=== PATIENT | male | born 1960 | race Caucasian/White ===

== ENCOUNTER 2024-01-04 12:03 | Emergency (ER) | payer OTHER, SELFPAY ==
[2024-01-04 12:20] VITALS: BP 120/93; PULSE 86; TEMP 36.7; O2SAT 95; BMI 25.0
--- NOTE | 2024-01-04 12:22 | XR_ITS ---
The [address] [address] Patient Name: SHWETA BRAXTON MRN: [id number] date: 1960 Sex: M Assigned Patient Location: ED.MAIN Current Patient Location: ER Accession/Order Number: [id number] Exam Date: 01/04/2024 12:40 Report Date: 01/04/2024 13:32 At the request of: ZION SEN Procedure: XR knee LT 3V EXAM: XR knee LT 3V HISTORY: pain COMPARISON: None. TECHNIQUE: 3 views of the left knee were obtained. FINDINGS: There is no evidence of an acute fracture or dislocation. The joint spaces are relatively intact throughout. No osteochondral injury is identified. There is no evidence of a joint effusion. Arteriovascular calcifications are noted posteriorly. Prominent soft tissue swelling anterior to the patella and the proximal tibia is noted. XR/XR knee LT 3V IMPRESSION: No acute fracture or dislocation. The joint spaces appear relatively intact. Prominent soft tissue swelling along the anterior aspect of the patella and tibia is noted. Electronically authenticated by: GRETA BRITT Date: 01/04/2024 13:32
--- NOTE | 2024-01-04 12:36 | ED.LOWEXI1 ---
HPI HPI - Extremity Injury (Lower) General Chief Complaint: Extremity Injury, Lower Stated Complaint: LOWER EXTREMITY INJURY Time Seen by Provider: 01/04/24 12:29 Mode of arrival: walk-in History of Present Illness HPI Narrative: The patient presented to the ER with a left knee pain that started yesterday after he fell after getting out of the bed at home there was no other injury the patient has been having pain when moving or putting weight on his leg Related Data Previous Rx's ?Medication ?Instructions ?Recorded diclofenac sodium 50 mg 50 mg PO Q12H PRN pain #14 tabs 01/04/24 tablet,delayed release Allergies Allergy/AdvReac Type Severity Reaction Status Date / Time No Known Drug Allergies Allergy Verified 01/04/24 12:20 Opioid HPI Opioid Management Most Recent Pain and Opioid Data: Last MAY Pain Assessment 01/04/24 12:59 Review of Systems ROS Status of ROS 10 or more systems reviewed and unremarkable except as noted in history and below PFSH PFSH Social History Little interest or pleasure in doing things: not at all Feeling down, depressed, or hopeless: not at all Exam Narrative Exam Narrative: Nurses notes and vital signs reviewed and patient is not hypoxic. Leg examination on the left side: The patient have significant edema of the left knee with full range of movement preserved there is no redness no hotness no open wounds the edema is mostly around the patella General: Well-appearing and in no apparent distress. Skin: Warm, dry, no pallor noted. No rash. Head: Normocephalic, atraumatic. Neck: Supple, non-tender. Eye: Pupils are equal, round and EOMI. No scleral icterus. Ears, Nose, Mouth, and Throat: TM are clear, no nasal mucosal hypertrophy. Oral mucosa is moist, no posterior oropharynx erythema, uvula is mid-line Cardiovascular: Regular Rate and Rhythm without murmur, gallop or rub. Respiratory: No accessory muscle use or respiratory distress. Lungs are clear to auscultation, no wheezing, rales or rhonchi Chest Wall: no tenderness Back: No midline thoracic or lumbar vertebral tenderness. No CVA tenderness GI: Abdomen is soft, non-distended. Normal bowel sounds. No masses appreciated. No tenderness to palpation. No rebound, guarding, or rigidity noted. Neurological: A&O x4. No cranial nerve dysfunction observed. No truncal ataxia. Moves all extremities. Sensation intact. Psychiatric: Cooperative and interactive. Normal mood and affect. Constitutional Vital Signs, click to edit/add: Last Vital Signs Temp 98.0 F 01/04/24 12:20 Pulse 86 01/04/24 12:20 Resp 18 01/04/24 12:20 BP 120/93 H 01/04/24 12:20 Pulse Ox 95 01/04/24 12:20 O2 Del Method Room Air 01/04/24 12:20 Course Vital Signs Vital signs: Vital Signs Temperature 98.0 F 01/04/24 12:20 Pulse Rate 86 01/04/24 12:20 Respiratory Rate 18 01/04/24 12:20 Blood Pressure 120/93 H 01/04/24 12:20 Pulse Oximetry 95 01/04/24 12:20 Oxygen Delivery Method Room Air 01/04/24 12:20 Temperature 98.0 F 01/04/24 12:20 Pulse Rate 86 01/04/24 12:20 Respiratory Rate 18 01/04/24 12:20 Blood Pressure 120/93 H 01/04/24 12:20 Pulse Oximetry 95 01/04/24 12:20 Oxygen Delivery Method Room Air 01/04/24 12:20 MDM - Extremity Injury (Lower) MDM Narrative Medical decision making narrative: X-ray of the left knee showed no acute pathology Right now the patient was provided with knee immobilizer in addition to crutches referred to orthopedic as outpatient for possible ligament injury or contusion NSAIDs for pain The patient is to follow up with primary care physician in next 2-3 days or to return to the emergency department should any of the signs or symptoms worsen or new symptoms develop. The patient agrees with the following Diagnosis and Treatment plan and the patient will be discharged home. Discharge Plan Discharge Chief Complaint: Extremity Injury, Lower Clinical Impression: Injury of ligament of knee Patient Disposition: Home, Self-Care Time of Disposition Decision: 13:48 Condition: Good Prescriptions / Home Meds: New diclofenac sodium 50 mg tablet,delayed release (DR/EC) 50 mg PO Q12H PRN (Reason: pain) Qty: 14 0RF Print Language: Indonesian Instructions: Crutch Instructions (ED), Swollen Knee Joint (ED) Referrals: Physician,Non-Staff, [Primary Care Provider] - 1 week Scott Dick MD [Physician] - 1 week Discharge Date/Time: 01/04/24 14:26
[2024-01-04] MEDS: KETOROLAC TROMETHAMINE 30 MG/ML VIAL IM (12:59)
== END 2024-01-04 14:26 | disposition home or self-care (01) ==
PROVIDERS: Emergency Provider Emergency Medicine
DX: S89.82XA Other specified injuries of left lower leg, initial encounter (principal); W06.XXXA Fall from bed, initial encounter
CPT/HCPCS: 73562; 96372; 99284; J1885

== ENCOUNTER 2024-03-08 06:39 | Outpatient (OUT) | payer OTHER, SELFPAY ==
--- NOTE | 2024-03-08 | NM_ITS ---
Patient Name: SHWETA BRAXTON MR#: [id number] : 1960 Exam Date: 03/08/2024 Ordering Doctor: DR. ALEXANDREA BARGER M.D. RADIOLOGY REPORT PROCEDURE: NM SHAY PERF SPECT REST STR COMPARISON: None. INDICATIONS: PRECORDIAL PAIN, PRE PROCEDURE CARDIOVASCULAR EXAM TECHNIQUE: Exam Description: Stress/Rest one day protocol gated SPECT Rest Imagin.5 mCi Tc-99m Cardiolite IV on 03-08-2024 Stress Imaging 29.2 mCi Tc-99m Cardiolite IV on 03-08-2024 Exercise Protocol: Sushant Heart Rate (bpm): Rest: 58 Max: 139 PMHR: 89 Blood Pressure: Rest: 120/72 Max: 208/96 Exercise Time: Minutes: 3 Seconds: 59 Stage Reached: Stage: 2 Mets 6.9 Symptoms: shortness of breath Rest and peak stress ECG findings were normal and the exercise portion of the study was normal per attending physician Dr. Barger . For more details please see separate cardiac stress test report. FINDINGS: QUALITY OF STUDY: Excellent. PERFUSION DEFECT: LOCATION: Basal inferior. Mid-inferior. Apical inferior. SIZE: Medium (3-4 segments). SEVERITY: Moderate. TYPE: Persistent. WALL MOTION: Normal. LV SIZE: Enlarged; EDV 138 mL. TID / TCD: None; 0.8 LVEF: Normal. Calculated EF 62%. SUMMARY: Myocardial perfusion imaging study has ABNORMAL findings. CONCLUSION: 1. No acute or reversible ischemia. 2. Decreased radiotracer uptake within the inferior wall which is stable between rest and stress imaging; fixed ischemia versus diaphragm attenuation artifact. 3. Left ventriculomegaly. 4. Normal left ventricle wall motion and ejection fraction. Dictated by: Scott Youssef M.D. on 03/09/2024 at 16:27 Approved by: Scott Youssef M.D. on 03/09/2024 at 16:31
--- NOTE | 2024-03-08 | PCN_ITS ---
CARDIAC STRESS TEST Requesting Physician: Procedure Date: 03/08/2024 TREADMILL NUCLEAR STRESS TEST INDICATION FOR THE PROCEDURE: Precordial pain and pre-op evaluation. The procedure was discussed with the patient in details, including risks and benefits, and he was agreeable to proceed. Patient?s resting EKG showed mild sinus bradycardia, heart rate 59 beats per minute, otherwise normal EKG. Resting blood pressure 120/72 mm/Hg. The patient was exercised according to standard Sushant protocol, and he was able to finish 3 minutes and 59 seconds, consistent with 6.9 METS, achieving max heart rate of 139 beats per minute, which represents 89% of age predicted maximum heart rate, and max blood pressure of 208/96 mm/Hg. Patient was monitored for 8 minutes into recovery phase, with heart rate back to 71 beats per minute and blood pressure to 150/82 mm/Hg. Patient did not experience any chest, neck, jaw or arm discomfort throughout the test. He had dyspnea at peak exercise. EKG during exercise, at peak exercise, and during recovery phase does not show any significant T or ST changes. Rare PVCs were noted during recovery phase and they were isolated. CONCLUSION: 1. Maximal stress test achieving 89% of age predicted maximum heart rate. 2. Appropriate heart rate response to exercise. 3. Hypertensive response to exercise. 4. Reduced exercise tolerance. 5. This EKG stress test is negative for exercise induced ischemic symptoms, EKG changes or significant arrhythmias. 6. The nuclear images result will be reported separately by Radiology. DIAMOND
[2024-03-08 06:54] LABS: Basophils Absolute Auto 0.1 10^3/uL (0.0-0.1); Basophils Percent Auto 0.7 % (0.2-2.0); Eosinophils Absolute Auto 0.4 10^3/uL (0.0-0.7); Eosinophils Percent Auto 4.6 % (0.9-7.0); Hemoglobin 14.8 g/dL (14.0-18.0); Immature Granulocytes Abs Auto 0.01 10^3/uL (0.00-0.03); Immature Granulocytes Pct Auto 0.1 % (0.0-0.5); Lymphocytes Absolute Auto 4.6 10^3/uL (1.2-3.8); Lymphocytes Percent Auto 48.5 % (20.5-60.0); Mean Corpuscular HGB Conc 32.9 g/dL (29.9-35.2); Mean Corpuscular Volume 94.3 fL (80.0-94.0); Monocytes Absolute Auto 0.6 10^3/uL (0.3-0.8); Monocytes Percent Auto 5.8 % (1.7-12.0); Neutrophils Absolute Auto 3.8 10^3/uL (1.4-6.5); Neutrophils Percent Auto 40.3 % (43.0-75.0); Platelet Count 277 10^3/uL (150-450); Red Blood Count 4.77 10^6/uL (4.70-6.10); Red Cell Distribution Width 12.9 % (11.0-15.0); White Blood Count 9.4 10^3/uL (4.0-11.0)
--- NOTE | 2024-03-08 07:30 | CA_ITS ---
Patient Name: SHWETA BRAXTON MR#: [id number] : 1960 Exam Date: 03/08/2024 Ordering Doctor: DR. Sivakumar Thomas M.D. ECHOCARDIOGRAM REPORT PROCEDURE: CA ECHO DOPPLER COMPLETE INDICATIONS: Pre-op, dyspnea on exertion, smoker COMPARISON: None. DESCRIPTION: COMPLETE ECHOCARDIOGRAM Real-time transthoracic echocardiography with 2D, M-mode, spectral and color flow Doppler performed. QUALITY: Technical quality was good. LEFT VENTRICLE: Normal chamber size. Mild concentric left ventricular hypertrophy. LV EF: Normal left ventricular ejection fraction, 55 to 60% without wall motion abnormalities. DIASTOLIC: Normal diastolic function. ATRIAL SEPTUM: Visually appears intact. LEFT ATRIUM: Mild dilatation. RIGHT ATRIUM: Normal chamber size. RIGHT VENTRICLE: Normal chamber size. Normal right ventricular systolic function. TRICUSPID VALVE: Normal mobility and thickness. No stenosis with no regurgitation. MITRAL VALVE: Mildly thickened with normal mobility. No evidence of mitral valve stenosis. Mild mitral annular calcification. Trivial mitral regurgitation. AORTIC VALVE: Normal trileaflet appearance. No visible sclerosis. Normal leaflet mobility. No evidence of aortic valve stenosis. No aortic regurgitation. AORTIC ROOT: Normal diameter and appearance. PULMONIC VALVE: Normal thickness and mobility. No stenosis. No regurgitation. PERICARDIUM: No evidence of pericardial effusion. IVC: Collapes with inspirations. IVC is normal in size. PLEURA: CONCLUSION: Mild concentric ventricular hypertrophy Normal left ventricle systolic function without wall motion abnormalities, ejection fraction 55 to 60% Normal left ventricle diastolic function Mildly dilated left atrium No significant valvular abnormalities Normal right ventricle size and systolic function Adult Echocardiography Procedure Report Left Ventricle LVEDD (3.7 - 5.6 cm): 5.10 cm LVESD (2.2 - 4.0 cm): 3.55 cm LVIVS thickness (0.6 - 1.2 cm): 1.30 cm LVPW thickness (0.5 - 1.0 cm): 1.23 cm e': 0.11 m/s E - e': 6.36 LVOT Max Gradient: 1.28 mm[Hg] LVOT Area (cm2): 0.57 m/s Peak Velocity (LVOT): 0.57 m/s Mean Velocity (LVOT): 0.42 m/s LVOT Diameter 2.79 cm Left Ventricular Ejection Fraction: Left Atrium LA Volume Index (2D A2C): 36.81 ml/m2 Left Atrium Systolic Dimension: 3.85 cm Mitral Valve MV E to A Ratio: 1.20 MV Max Gradient: MV Mean Gradient: Mitral Valve A-Wave Peak Velocity: 0.58 m/s Mitral Valve E-Wave Peak Velocity: 0.70 m/s Cardiovascular Orifice Area: Right Ventricle RV Internal Diastolic Dimension: Aorta AO Root Diam: 4.07 cm Ascending Ao Diam: Aortic Valve AoV Area (Peak Jimi): 3.72 cm2, 3.72 cm2 AoV Area (VTI): 4.01 cm2, 4.01 cm2 Deceleration Placer: Pressure Half-Time: Peak Velocity(Antegrade Flow): 0.93 m/s Peak Gradient(Antegrade Flow): 3.45 mm[Hg] Mean Velocity(Antegrade Flow): 0.67 m/s Mean Gradient(Antegrade Flow): 1.94 mm[Hg] Velocity Time Integral: 17.99 cm Tricuspid Valve Peak Velocity (Regurgitant Flow): Peak Velocity: Pulmonic Valve Mean Gradient: Mean Velocity: Peak Velocity: 0.92 m/s Peak Gradient: 3.37 mm[Hg] Right Atrium Right Atrium Systolic Pressure: 37.90 ml, 37.90 ml Dictated by: Sivakumar Thomas MD on 03/08/2024 at 17:58 Approved by: Sivakumar Thomas MD on 03/08/2024 at 18:04
[2024-03-08 08:01] LABS: Alanine Aminotransferase 31 U/L (16-63); Anion Gap 8.2; Aspartate Amino Transferase 22 U/L (15-37); BUN Creatinine Ratio 15.3; Calcium 8.6 mg/dL (8.5-10.1); Carbon Dioxide 31.9 mmol/L (21.0-32.0); Chloride 104 mmol/L (98-107); Chol HDL Ratio 3.9; Cholesterol 216 mg/dL (<=200); Estimated GFR (African America >60 (>=60 mL/min/1.73m^2); Estimated GFR (Non-African Ame >60 (>=60 mL/min/1.73m^2); Glucose 85 mg/dL (74-106); HDL Cholesterol 56 mg/dL (40-60); Potassium 4.1 mmol/L (3.5-5.1); Sodium 140 mmol/L (136-145); Thyroid Stimulating Hormone 1.544 uIU/mL (0.358-3.740); Triglycerides 83 mg/dL (<=150); VLDL CHOLESTEROL 16.6 mg/dL
--- NOTE | 2024-03-08 10:01 | PC.NURSE ---
Nursing Note Cardiac Stress Test Reviewed: Medication, allergies and patient history reviewed. Stress Test: [ x] Patient tolerated stress test well. [ ] Patient unable to tolerate walking on treadmill. Switched to Lexiscan stress test. [ x] No chest pain noted per patient [ ] Chest pain that resolved prior to leaving stress lab. [ ] No dyspnea noted. [x ] Dyspnea that resolved prior to leaving stress lab. [ x] Patient left stress lab asymptomatic and hemodynamically stable. [ ] Patient taken to the Emergency Room due to non-resolving symptoms following stress test. [ x] Patient achieved target heart rate. [ ] Patient unable to achieve target heart rate. [ ] Aminophylline administered as reversal agent to Lexiscan (Regadenoson). [ ] Nitro administered. Nursing Comments:Pt had Cardiolite stress test tolerated well. Pt had dyspnea that resolved within 5 min of rest. Pt states he always has SOB with any activity due to smoking for 50 years.
== END 2024-03-08 06:40 | disposition home or self-care (01) ==
LOC: LAB 06:40
PROVIDERS: Visit Provider Internal Medicine Cardiovascular Disease
DX: Z01.818 Encounter for other preprocedural examination (principal); R07.2 Precordial pain; R06.09 Other forms of dyspnea; E78.5 Hyperlipidemia, unspecified; I10 Essential (primary) hypertension
CPT/HCPCS: 36415; 78452; 80048; 80061; 84443; 84450; 84460; 85025; 93017; 93306; A9500

== ENCOUNTER 2024-04-16 13:24 | Outpatient (OUT) | payer OTHER, SELFPAY ==
--- OUTSIDE RECORDS SUMMARY | 2024-04-16 13:43 | XMS_ITS | CCD ---
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 instructionPATIENT / FAMILY RESPONSE: Verbalizes understanding of: INFECTIONMANAGEMENT-Signs and symptoms of an infection and importance ofcontacting the physicianPAIN MANAGEMENT-Effective strategies to manage pain in addition to painmedicationPOST-OPERATI VE INSTRUCTIONS-Correct actions to take to reducepostoperative complicationsPRE-OPERATIVE INSTRUCTIONS-Correct action to take to follow pre-operativeinstructionsF OLLOW-UP PLAN: Patient instructed to call with any further issuesSUPPLEMENTAL MATERIAL: Your Surgical GuideREFERRAL (RECOMMENDATION): NoneElectronically Signed By: Sunni Salmeron RN In Department: GENERALSURGERY Normal [facility] CNOVon 2017 CNOV Office Visit (SPNMMN) SHWETA BRAXTON JR ([id number]) 1960 MDate Time Provider Department09/11/17 9:40 AM AURA STATON SPNYMN During your visit today, we recorded the following information about you: Pulse Respiration Blood pressure Weight 70/minute 16/minute 137/83 104.3 kg Height 1.892 Kenton Staton MD 2017 11:[address] S[address]Spine Care Path Radicular Leg Pain - Chronic (> 12 weeks) Initial ExamSUBJECTIVEHISTORY OF PRESENT ILLNESS:Shweta Braxton JR is a 57 year old male who presents with a chief complaint ofleg pain and is seen in consultation requested by Dr. Thomas Matthews for anopinion. My final recommendations will be communicated back to the requestingphysician by way of shared medical record or letter via US mail.Other Issues Addressed at the Visit Today: None.Precipitating Event: NoneLow back and bilateral LE pain-buttock, posterior thigh to the ankle to theplantar of the foot for the last 2 years. +numbness of the feet and some inthe legs but the foot numbness is most bothersome. Bilateral LE swelling alsonotes around this time. Saw a vascular physician (records not available) andwas given compression stockings and suggested a work-up that per patient wasnot completed due to inability to afford.Now has insurance/coverage via [facility].Denies trauma.PAIN EVALUATION 2017 Pain Score: 10 Pain Location: Back Description: Aching;Radiating;Numbness; Other: See comment piercing Duration Amount of Time: 2 Duration Units: Years Frequency: Continuous Intervention: Medication;Cold;Relaxation ;HeatPain Radiation: please see aboveAggravating Factors: sitting>standing>walking. Not limited in walking distance.Alleviating Factors: Lying supinePain Ratio: Pain in the back and leg(s) is equalPrior Therapy: tried OTC-tylenol, advil. Denies PT or injections.Litigation: NoWorkers' Compensation: NoPED RED FLAGS YELLOW AND BLUE FLAGSNo No-Significant Injury to SpineNo-Use of Steroids for Prolonged DurationNo-Loss of Bowel/Bladder Control, Genital/Anal NumbnessNo-Recent Use of Intravenous (IV) DrugsNo-Difficulty Keeping Balance when WalkingYES-Progressive Weakness in Arms/LegsNo-History of Any Type of CancerNo-Unable to Find Position of ComfortNo-Pain at Night that Disturbs SleepNo-Recent Elevated Temp with Unknown CauseNo-Diagnosed with OsteoporosisNo-Unintention al Weight Loss or Gain No-Neg Attitude; Back Pain is DisablingNo-Avoiding Activity (for Fear of Pain)YES-Depression or Anxiety DisordersNo-Social ProblemsNo-Substance Use DisorderNo-Job DissatisfactionNo-Financia l Disincentives*PED (Patient Entered Data) osteoporosis flag will display for females 55 yearsor older and males 75 years or older.ACTIVE PROBLEM LISTObesity, Class I, Bmi 30-34.9Chronic Obstructive Pulmonary Disease (Hcc)Chronic Left-Sided Low Back Pain With SciaticaUmbilical Hernia Without Obstruction Or GangrenePreoperative ExaminationUmbilical Hernia Without Obstruction and Without GangrenePAST MEDICAL HISTORYDiagnosis Date- Back pain- COPD (chronic obstructive pulmonary disease) (HCC)- Current smoker- Hip pain- Umbilical herniaPAST SURGICAL HISTORYProcedure Laterality Date- HEMORRHOID SURGERY HXSocial History Marital status: Single Spouse name: Years of education: Number of children:Social History Main Topics Smoking status: Current Some Day Smoker Packs/day: 1.00 Years: 40.00 Smokeless tobacco: Current User Comment: used to smoke more Alcohol use: Yes 20.0 oz/week Shots of liquor: 20 per week Comment: 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 but there is noteof COPD in chart that patient deniesGI: Denies GI ulcers, inflammatory disease, or liver disease.: Denies change in frequency or urgency, kidney disease, and burning withurination.MUSCULOSKELE ARIANNA: Negative for joint pain or swelling, back pain or muscle pain.SKIN: Denies rash or itching.PSYCHOLOGICAL: Denies uncontrolled depression or anxiety.NEURO: Denies CVA, seizures, headaches.ENDOCRINE: Denies diabetes, thyroid disease.HEMATOLOGY/LYMPHOL OGY: Denies cancer, bleeding or clotting disorders,anemia,and DVT's.ALLERGIC/IMMUNOLOGIC AL: Denies risks for infection, or recent MRSA infections.OBJECTIVE:PHYSI NYDIA EXAMBP 137/83 Pulse 70 Resp 16 Ht 189.2 cm (6' 2.5 ) Wt 104.3 kg (230lb) BMI 29.14 kg/m?General: Pleasant individual in NADMental Status: Oriented to person place and time. Displays appropriate mood andaffect.GAIT: Gait is normal.Gross Motor: Toe walking, heel walking are normal.Strength Testing: Bilateral upper and lower extremity strength is normal andsymmetric. No atrophy or tone abnormalities are noted.Sensation: No loss of sensation is noted.Neuro: Bilateral upper and lower extremity coordination and muscle stretchreflexes are physiologic and symmetric. Plantar response are downgoing.Spine Range of Motion: Normal range of motion with some pain reproductionPeripheral Joint ROM: Peripheral joint ROM appears full and pain free withoutobvious instability or laxity in all four extremities.Provocative Maneuvers: hip, sacroiliac provocative maneuvers are negative.Straight Leg Raising: Straight leg raising in the sitting and supine positionsis negative to radicular pain.Palpation: Inspection and palpatory examination of the spine upper/lowerextremities is unremarkable except for slight lower lumbar paraspinaltenderness.Perip heral Vascular: 1-2+ pitting edema symmetricAppearance of Skin: Skin inspection of the trunk, bilateral upper and lowerextremities is unremarkable except for some color changes of the feetData Review:[facility] records reviewedN/AASSESSMENT:#1. Chronic low back and LE pain. Suspect component of lumbar radicular paincontributing, S1. Suspect spondylosis w/o myelopathyPLAN: Management options were reviewed.1. Lumbar x-ray2. Vascular medicine consult for additional evaluation of chronic LE edema3. Call for x-ray results. Consider spine specific PT. Notes would like toconsider after upcoming surgery 10/10 which is reasonable.The above plan and management options were discussed at length with patient.Patient is in agreement with the above and verbalized understanding.Patient instructed to call/seek urgent medical care with worsening of symptomsor change of neurological status. Red flags reviewed.Aura Staton MDImaging Ordered:plain films-see aboveSIGNATURE: Aura Staton MD PATIENT NAME: Shweta Braxton JRDATE: 2017 : 10:45 AMReferring Provider: THOMAS MATTHEWS [[id number]]Allergies As of Date: 2017(No Known Allergies)Date Reviewed: 2017Reviewed by: Eve Phelan MA - Fully AssessedReason for Visit: New Patient [172]Primary Visit Diagnosis:Lumbosacral spondylosis without myelopathy [M47.817] Other Visit Diagnoses:Chronic left-sided low back pain with sciatica, sciatica laterality unspecified [M54.40, G89.29] Leg swelling [M79.89]Order(s):XR LUMBAR LIMITED 2V AP/LAT [4043757] Order #: [id number] FUTURE CONSULT TO VASCULAR MEDICINE [639910] Order #: [id number]: 1Problem List As Of Date 2017 Noted Resolved Obesity, Class I, BMI 30-34.9 [E66.9] INVALID FOR* Chronic obstructive pulmonary disease (HCC) [J4*INVALID FOR* Chronic left-sided low back pain with sciatica *INVALID FOR* Umbilical hernia without obstruction or gangren*INVALID FOR* Preoperative examination [Z01.818] INVALID FOR* More... Umbilical hernia without obstruction and withou*INVALID FOR* More...Disposition: Return in about 3 months (around 12/12/2017).Follow-up and Disposition History RecordedEncounter Number: [id number] Status:Closed by AURA STATON MD on 09/11/17 Normal [facility] PROGRESSon 2017 Protein mass conc HNO ID: [id number]: Juliana Burgos RtService: (none)Author Type: (none)Type: Progress NotesFiled: 2017 11:28 AMNote Text: Radiology Service Progress NotePATIENT NAME: [facility] Braxton [facility]: [id number] OF SERVICE: September 11, 2017TIME: 11:28 AMPATIENT IDENTITY VERIFICATION COMPLETED USING TWO (2) METHODS: Patientconfirmed name verbally and Date of .PATIENT GENDER DATA: MalePATIENT RELEVANT IMPLANT DATA REVIEWED: Not ApplicableRADIOLOGY DEPARTMENT: General X-ray: Exam(s) Completed: Spine X-Ray(s):Lumbar AP / LAT / L5-O1ORLEUUQZSY IV DATA: Not applicableSIGNED BY: Juliana Burgos RtJuly 2017 11:28 AM Normal [facility] Protein mass conc HNO ID: [id number]: Aura Kirby Ludivina: (none)Author Type: PhysicianType: Progress NotesFiled: 2017 11:17 AMNote Text:Spine Care Path Radicular Leg Pain - Chronic (> 12 weeks) Initial ExamSUBJECTIVEHISTORY OF PRESENT ILLNESS:Shweta Braxton JR is a 57 year old male who presents with a chief complaintof leg pain and is seen in consultation requested by Dr. Thomas Matthews ruben opinion. My final recommendations will be communicated back to therequesting physician by way of shared medical record or letter via USmail.Other Issues Addressed at the Visit Today: None.Precipitating Event: NoneLow back and bilateral LE pain-buttock, posterior thigh to the ankle tothe plantar of the foot for the last 2 years. +numbness of the feet andsome in the legs but the foot numbness is most bothersome. Bilateral LEswelling also notes around this time. Saw a vascular physician (recordsnot available) and was given compression stockings and suggested a work-upthat per patient was not completed due to inability to afford.Now has insurance/coverage via [employer].Denies trauma.PAIN EVALUATION 2017 Pain Score: 10 Pain Location: Back Description: Aching;Radiating;Numbness; Other: See comment piercing Duration Amount of Time: 2 Duration Units: Years Frequency: Continuous Intervention: Medication;Cold;Relaxation ;HeatPain Radiation: please see aboveAggravating Factors: sitting>standing>walking. Not limited in walkingdistance.Alleviatin g Factors: Lying supinePain Ratio: Pain in the back and leg(s) is equalPrior Therapy: tried OTC-tylenol, advil. Denies PT or injections.Litigation: NoWorkers' Compensation: NoPED RED FLAGS YELLOW AND BLUE FLAGSNo No-Significant Injury to SpineNo-Use of Steroids for Prolonged DurationNo-Loss of Bowel/Bladder Control, Genital/Anal NumbnessNo-Recent Use of Intravenous (IV) DrugsNo-Difficulty Keeping Balance when WalkingYES-Progressive Weakness in Arms/LegsNo-History of Any Type of CancerNo-Unable to Find Position of ComfortNo-Pain at Night that Disturbs SleepNo-Recent Elevated Temp with Unknown CauseNo-Diagnosed with OsteoporosisNo-Unintention al Weight Loss or Gain No-Neg Attitude; Back Pain is DisablingNo-Avoiding Activity (for Fear of Pain)YES-Depression or Anxiety DisordersNo-Social ProblemsNo-Substance Use DisorderNo-Job DissatisfactionNo-Financia l Disincentives*PED (Patient Entered Data) osteoporosis flag will display for females 55years or older and males 75 years or older.ACTIVE PROBLEM LISTObesity, Class I, Bmi 30-34.9Chronic Obstructive Pulmonary Disease (Hcc)Chronic Left-Sided Low Back Pain With SciaticaUmbilical Hernia Without Obstruction Or GangrenePreoperative ExaminationUmbilical Hernia Without Obstruction and Without GangrenePAST MEDICAL HISTORYDiagnosis Date- Back pain- COPD (chronic obstructive pulmonary disease) (HCC)- Current smoker- Hip pain- Umbilical herniaPAST SURGICAL HISTORYProcedure Laterality Date- HEMORRHOID SURGERY HXSocial History Marital status: Single Spouse name: Years of education: Number of children:Social History Main Topics Smoking status: Current Some Day Smoker Packs/day: 1.00 Years: 40.00 Smokeless tobacco: Current User Comment: used to smoke more Alcohol use: Yes 20.0 oz/week Shots of liquor: 20 per week Comment: 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 but there isnote of COPD in chart that patient deniesGI: Denies GI ulcers, inflammatory disease, or liver disease.: Denies change in frequency or urgency, kidney disease, and burningwith urination.MUSCULOSKELETAL: Negative for joint pain or swelling, back pain or musclepain.SKIN: Denies rash or itching.PSYCHOLOGICAL: Denies uncontrolled depression or anxiety.NEURO: Denies CVA, seizures, headaches.ENDOCRINE: Denies diabetes, thyroid disease.HEMATOLOGY/LYMPHOL OGY: Denies cancer, bleeding or clotting disorders,anemia,and DVT's.ALLERGIC/IMMUNOLOGIC AL: Denies risks for infection, or recent MRSAinfections.OBJECTIVE:P HYSICAL EXAMBP 137/83 Pulse 70 Resp 16 Ht 189.2 cm (6' 2.5 ) Wt 104.3 kg(230 lb) BMI 29.14 kg/m?General: Pleasant individual in NADMental Status: Oriented to person place and time. Displays appropriatemood and affect.GAIT: Gait is normal.Gross Motor: Toe walking, heel walking are normal.Strength Testing: Bilateral upper and lower extremity strength is normaland symmetric. No atrophy or tone abnormalities are noted.Sensation: No loss of sensation is noted.Neuro: Bilateral upper and lower extremity coordination and muscle stretchreflexes are physiologic and symmetric. Plantar response are downgoing.Spine Range of Motion: Normal range of motion with some pain reproductionPeripheral Joint ROM: Peripheral joint ROM appears full and pain freewithout obvious instability or laxity in all four extremities.Provocative Maneuvers: hip, sacroiliac provocative maneuvers arenegative.Straight Leg Raising: Straight leg raising in the sitting and supinepositions is negative to radicular pain.Palpation: Inspection and palpatory examination of the spine upper/lowerextremities is unremarkable except for slight lower lumbar paraspinaltenderness.Perip heral Vascular: 1-2+ pitting edema symmetricAppearance of Skin: Skin inspection of the trunk, bilateral upper andlower extremities is unremarkable except for some color changes of thefeetData Review:[facility] records reviewedN/AASSESSMENT:#1. Chronic low back and LE pain. Suspect component of lumbar radicularpain contributing, S1. Suspect spondylosis w/o myelopathyPLAN: Management options were reviewed.1. Lumbar x-ray2. Vascular medicine consult for additional evaluation of chronic LEedema3. Call for x-ray results. Consider spine specific PT. Notes would liketo consider after upcoming surgery 10/10 which is reasonable.The above plan and management options were discussed at length withpatient. Patient is in agreement with the above and verbalizedunderstanding.Pedro Pablo michel instructed to call/seek urgent medical care with worsening ofsymptoms or change of neurological status. Red flags reviewed.Aura Staton MDImaging Ordered:plain films-see aboveSIGNATURE: Aura Staton MD PATIENT NAME: Shweta Braxton JRDATE: 2017 : 10:45 AM Normal [facility] XR LUMBAR 2V AP/LATon 2017 XR LUMBAR 2V AP/LAT * * *Final Report* * *DATE OF EXAM: 2017 11:28AM BALDO [id number] - XR LUMBAR 2V AP/LAT / REASON: multiple diagnoses * * * * Physician Interpretation * * * * EXAMINATION: XR LUMBAR 2V AP/LATPATIENT/TECHNOLOGIST PROVIDED HISTORY: SEVERAL YEARS LBP, RADIATIING INTO BOTH LEGS, FOOT SWELLING, NUMBNESS AND TINGLING.CLINICAL INFORMATION: Lumbago with sciatica, unspecified side Other chronic painTECHNIQUE: Lumbar spine, 2 views, weight-bearingCOMPARISON: NoneRESULT:Counting reference: Lumbosacral junction. For the purposes of this report, L5S1 is considered the last lumbar type disc space.Normal lumbar spine alignment. Normal vertebral body heights. Mild disc space narrowing at L5-S1 with multilevel anterior endplate osteophytes. Remainder of the visualized disc space heights appear normal. There may be mild facet degenerative change lower lumbar spine. Vascular calcifications.IMPRESSION: Mild degenerative change of the lumbar spine, as described.Foil Operator : PSCB Transcribe Date/Time: 2017 12:24PDictated by : Sami CLAYTON examination was interpreted and the report reviewed and electronically signed by: ENIO MIRZA MD on 2017 1:45PM [id number] Normal [facility] PROGRESSon 08-29-2017 Protein mass conc HNO ID: [id number]: Sunni Reyes (Rn) Jules, RNService: (none)Author Type: Registered NurseType: Progress NotesFiled: 08/29/2017 11:39 AMNote Text:.Spoke to patient re: upcoming surgery- reviewed preop directions as wellas post op-patient verbalized an understanding to all instructions.Stop smoking 3 weeks before surgeryStop NSAIDS: ASA, advil, motrin, Aleve, Rx NSAIDS, combination medscontaining these.Sunni Salmeron RN Normal [facility] PROGRESSon 07-22-2017 Protein mass conc HNO ID: [id number]: Ramon Malik (Rt) Mariela MarroquinService: RadiologyAuthor Type: TechnicianType: Progress NotesFiled: 07/22/2017 2:58 PMNote Text: Radiology Service Progress NotePATIENT NAME: Shweta Braxton JRMRN: [id number] OF SERVICE: July 22, 2017TIME: 2:57 PMPATIENT IDENTITY VERIFICATION COMPLETED USING TWO (2) METHODS: Patientconfirmed name verbally and Date of .PATIENT GENDER DATA: MalePATIENT RELEVANT IMPLANT DATA REVIEWED: YesRADIOLOGY DEPARTMENT: General X-ray: Exam(s) Completed: Chest X-RayPERIPHERAL IV DATA: Not applicableSIGNED BY: RT BrunoMay 2017 2:57 PM Normal [facility] XR CHEST 2V FRONTAL/LATon XR CHEST 2V FRONTAL/LAT * * *Final Report* * *DATE OF EXAM: Jul 22 2017 2:56PM JIX [id number] - XR CHEST 2V FRONTAL/LAT / REASON: multiple diagnoses * * * * Physician Interpretation * * * * EXAMINATION: CHEST RADIOGRAPH (2 VIEW FRONTAL and LATERAL)Clinical History: Encounter for other preprocedural examination Umbilical hernia without obstruction or gangreneMQ: XC2_5Comparison: NoneRESULT:Lines, tubes, and devices: None.Lungs and pleura: The lungs are clear of focal consolidation or mass. No substantial pleural effusions or pneumothorax are noted.Cardiomediastinal silhouette: Cardiomediastinal silhouette is unremarkable.Other: Mild degenerative changes are noted in the thoracic spine.IMPRESSION:No acute radiographic abnormality.Transcriptioni st: PSCB Transcribe Date/Time: Jul 22 2017 4:11PDictated by : TESHA MIKE MDThis examination was interpreted and the report reviewed and electronically signed by: TESHA MIKE MD on Jul 22 2017 4:12PM [id number] Normal [facility] CNOVon 07-21-2017 CNOV Office Visit (GENBMI) SHWETA BRAXTON JR ([id number]) 1960 MDate Time Provider Department07/21/17 2:00 PM THOMAS MATTHEWS During your visit today, we recorded the following information about you: Pulse Blood pressure Weight Height 74/minute 140/78 105.2 kg 1.858 Russell Bhatia MD 07/21/2017 3:15 PM Signed [facility] H AND PPATIENT NAME: Shweta Braxton JRMRN: [id number] SERVICE: general surgeryPRATRIUM HEALTH UN[facility] WESTR[facility] CARE PHYSICIAN: Puneet Epperson DOASSESSMENT/PLAN: 56 year old male presents with abdominal pain and small,reducible umbilical hernia. Hernia is symptomatic, but reducible. Pt has othermedical problems which have not been addressed and no insurance, but is [facility]by [facility] through [facility]. Pt is also pack a day smoker. Smoking, COPD and otherissues will need to take precedence before surgery is scheduledPt has history of alcohol use and could have cirrhosis based on the hisotry,almost certainly has COPD undiagnosed and not managed. His abdominal pain issignificant, so the hernia should not be ignored.EKG, echo, CXR, PFTsCBC/CMPFollow up after exams and labs completedHPI: 56 year old male with history of back and leg pain, current smoker,little medical care who presents with umbilical pain and hernia.Pt says he had leg pain treated with oral steroids. He blew up like a balloon and then the hernia appeared within a few months. He also describes his wholeabdomen dropping a few months before, but he could not describe this further.He denied any change in bowel habits and has not had nausea or vomiting.He describes abdominal tenderness which keeps him from touching his umbilicusor abdomen. He dried to squeeze through a tight spot recently, and had somemuch abdominal pain he had to lie down.Pt is a pack per day smoker. He says he drank a bottle of crown royal over thelast two days to self medicate the hurt back and leg. He has back pain withsciatica to his left leg. 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.PAST MEDICAL HISTORY:PAST MEDICAL HISTORYDiagnosis Date- Back pain- COPD (chronic obstructive pulmonary disease) (HCC)- Current smoker- Hip pain- Umbilical herniaPAST SURGICAL HISTORY:PAST SURGICAL HISTORYProcedure Laterality Date- HEMORRHOID SURGERY HXFAMILY HISTORY: No family history on file.SOCIAL HISTORY:Social HistorySubstance Use Topics- Smoking status: Current Some Day Smoker Packs/day: 1.00 Years: 40.00- Smokeless tobacco: Current User Comment: used to smoke more- Alcohol use 20.0 oz/week 20 Shots of liquor per week Comment: lots lately to deal with leg painMEDICATIONS:Prior to Admission Medications:No prescriptions on file.No current hospital medications on file.ALLERGIES: ALLERGIESNo Known AllergiesCOMPLETE REVIEW OF SYSTEMS:GENERAL: No weight loss, malaise or feversRESPIRATORY: Negative for cough, wheezing or shortness of breath.CARDIOVASCULAR: Negative for chest pain, leg swelling or palpitations.GI: Positive for abdominal discomfort, see HPIGU: No history of dysuria, frequency or incontinenceSKIN: Negative for lesions, rash, and itching.All other reviewed and negative other than HPI.PHYSICAL EXAM:BP 140/78 (BP Site: Right Arm, BP Position: Sitting, BP Cuff Size: Large Adult) Pulse 74 Ht 185.8 cm (6' 1.14 ) Wt 105.2 kg (232 lb) BMI 30.49kg/m?GENERAL: Alert and oriented, no acute distress, cooperative.CARDIAC: regular rate and rythmLUNGS: labored and audible breathing with wheezingABDOMEN: soft, moderately tender, umbilical hernia above the umbilicus isreducible and fat filledLABS:CBC:No results for input(s): WBC, HB, HCT, PLT in the last 168 hours.COAG: No results for input(s): APTT, INR in the last 168 hours.BMP: No results for input(s): GLUC, NA, K, CHLOR, CO2, ANION, BUN, CREAT in thelast 168 hours.CHEM: No results for input(s): ALB, TPROT, CA, MG in the last 168 hours.HEPATIC: No results for input(s): ALKPHOS, ALT, AST, TBILI, LIPASE in the [id number] hours.Invalid input(s): AMYLASEIMAGING: *will obtain Angi Bhatia MDThomas Hospital SurgeryY- [id number]/2:12 Suze Matthews MD 07/21/2017 4:25 PM SignedPATIENT NAME: [facility] Braxton [id number]OSP[facility] SERVICE: [facility]IAN: Puneet Epperson, DO??ASSESSMENT/PLAN: 56 year old male presents with abdominal pain and smallumbilical hernia. Hernia is symptomatic, but partially reducible. Pt has othermedical problems which have not been addressed and no insurance, but is [facility]. Pt is also pack a day smoker. Smoking, COPD and otherissues will need to take precedence before surgery is scheduled?Pt has history of alcohol use and could have cirrhosis based on the history,almost certainly has COPD undiagnosed and not managed. His abdominal pain issignificant, so the hernia should not be ignored.?EKG, echo, CXR, PFTsCBC/CMPFollow up after exams and labs completed??HPI: 56 year old male with history of back and leg pain, current smoker,little medical care who presents with umbilical pain and hernia.?Pt says he had leg pain treated with oral steroids. He blew up like a balloon and then the hernia appeared within a few months. He also describes his wholeabdomen dropping a few months before, but he could not describe this further.He denied any change in bowel habits and has not had nausea or vomiting.?He describes abdominal tenderness which keeps him from touching his umbilicusor abdomen. He dried to squeeze through a tight spot recently, and had somemuch abdominal pain he had to lie down.?Pt is a pack per day smoker. He says he drank a bottle of crown royal over thelast two days to self medicate the hurt back and leg. He has back pain withsciatica to his left leg. 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 ? Packs/day: 1.00? ? Years: 40.00- Smokeless tobacco: Current User? ? ? Comment: used to smoke more- Alcohol use 20.0 oz/week? ? 20 Shots of liquor per week? ? ? Comment: lots lately to deal with leg pain??MEDICATIONS:Prior to Admission Medications:CURRENT MEDICATIONSNo prescriptions on file.???No current hospital medications on file.?ALLERGIES:ALLERGIESA LLERGIESNo Known Allergies?COMPLETE REVIEW OF SYSTEMS:GENERAL: No weight loss, malaise or feversRESPIRATORY: Negative for cough, wheezing or shortness of breath.CARDIOVASCULAR: Negative for chest pain, leg swelling or palpitations.GI: Positive for abdominal discomfort, see HPIGU: No history of dysuria, frequency or incontinenceSKIN: Negative for lesions, rash, and itching.All other reviewed and negative other than HPI.?PHYSICAL EXAM:BP 140/78 (BP Site: Right Arm, BP Position: Sitting, BP Cuff Size: Large Adult) Pulse 74 Ht 185.8 cm (6' 1.14 ) Wt 105.2 kg (232 lb) BMI 30.49kg/m??GENERAL: Alert and oriented, no acute distress, cooperative.CARDIAC: regular rate and rhythmLUNGS: labored and audible breathing with wheezingABDOMEN: soft, moderately tender, umbilical hernia above the umbilicus??Neli Bhatia MDGeneral SurgeryY- [id number]?07/21/20172:12 PMSTAFF NOTEAgree with assessment and planChronically incarcerated umbilical hernia, symptomaticChronic smoker, dyspnea, wheezingNo recent medical visitsWe need to assess his cardiac and lung functions before hernia surgery.Needs some blood works todayRefer to spine center for chronic severe back painRTC after the tests and optimizations to schedule the surgery.Needs to be done before OctoberHe needs to stop smoking before surgery.Lorelei Napoles Provider: PUNEET EPPERSON (HISTORICAL) [[id number]]Allergies As of Date: 07/21/2017(No Known Allergies)Date Reviewed: 07/21/2017Reviewed by: Thomas Matthews - Fully AssessedReason for Visit: New Patient [172]Primary Visit Diagnosis:Chronic obstructive pulmonary disease, unspecified COPD type (HCC) [J44.9] Other Visit Diagnoses:Obesity, Class I, BMI 30-34.9 [E66.9] Chronic left-sided low back pain with sciatica, sciatica laterality unspecified [M54.40, G89.29] Umbilical hernia without obstruction or gangrene [K42.9]Order(s):ECG COMPLETE W INTERPRETATION [ECG01] Order #: [id number] FUTURE XR CHEST 1V FRONTAL PORT [[id number]] Order #: [id number] FUTURE LUNG VOLUMES [2932041] Order #: [id number] FUTURE CBC + DIFF [SQCBCDIF] Order #: [id number] FUTURE HGB A1C [QMEFL4S] Order #: [id number] FUTURE ECHO [270052] Order #: [id number]: 1 FUTURE COMP METABOLIC PANEL [SQCMP] Order #: [id number] FUTURE CONSULT TO SPINE CENTER [[id number]] Order #: [id number]: 1Problem List As Of Date 07/21/2017 Noted Resolved Obesity, Class I, BMI 30-34.9 [E66.9] INVALID FOR* Chronic obstructive pulmonary disease (HCC) [J4*INVALID FOR* Chronic left-sided low back pain with sciatica *INVALID FOR* Umbilical hernia without obstruction or gangren*INVALID FOR* Status:Closed by THOMAS MATTHEWS MD on 07/21/17 [facility] HISTORY PHYSICALon 8 HISTORY PHYSICAL HNO ID: [id number] thor: Neli (Res) Taco: (none)Author Type: ResidentType: HANDPFiled: 07/21/2017 3:15 PMNote Text: [facility] INSTITUTEGENERAL SURGERY H AND PPATIENT NAME: Shweta Braxton JRN: [id number] SERVICE: [facility] surgeryPRLAMAR [facility]: Puneet Epperson, DOASSESSMENT/PLAN: 56 year old male presents with abdominal pain and small,reducible umbilical hernia. Hernia is symptomatic, but reducible. Pt hasother medical problems which have not been addressed and no insurance, butis covered by [facility] through october. Pt is also pack a day smoker. Smoking,COPD and other issues will need to take precedence before surgery isscheduledPt has history of alcohol use and could have cirrhosis based on thehisotry, almost certainly has COPD undiagnosed and not managed. Hisabdominal pain is significant, so the hernia should not be ignored.EKG, echo, CXR, PFTsCBC/CMPFollow up after exams and labs completedHPI: 56 year old male with history of back and leg pain, current smoker,little medical care who presents with umbilical pain and hernia.Pt says he had leg pain treated with oral steroids. He blew up like aballoon and then the hernia appeared within a few months. He alsodescribes his whole abdomen dropping a few months before, but he couldnot describe this further. He denied any change in bowel habits and hasnot had nausea or vomiting.He describes abdominal tenderness which keeps him from touching hisumbilicus or abdomen. He dried to squeeze through a tight spot recently,and had some much abdominal pain he had to lie down.Pt is a pack per day smoker. He says he drank a bottle of crown royal overthe last two days to self medicate the hurt back and leg. He has back painwith sciatica to his left leg. 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.PAST MEDICAL HISTORY:PAST MEDICAL HISTORYDiagnosis Date- Back pain- COPD (chronic obstructive pulmonary disease) (HCC)- Current smoker- Hip pain- Umbilical herniaPAST SURGICAL HISTORY:PAST SURGICAL HISTORYProcedure Laterality Date- HEMORRHOID SURGERY HXFAMILY HISTORY: No family history on file.SOCIAL HISTORY:Social HistorySubstance Use Topics- Smoking status: Current Some Day Smoker Packs/day: 1.00 Years: 40.00- Smokeless tobacco: Current User Comment: used to smoke more- Alcohol use 20.0 oz/week 20 Shots of liquor per week Comment: lots lately to deal with leg painMEDICATIONS:Prior to Admission Medications:No prescriptions on file.No current hospital medications on file.ALLERGIES: ALLERGIESNo Known AllergiesCOMPLETE REVIEW OF SYSTEMS:GENERAL: No weight loss, malaise or feversRESPIRATORY: Negative for cough, wheezing or shortness of breath.CARDIOVASCULAR: Negative for chest pain, leg swelling or palpitations.GI: Positive for abdominal discomfort, see HPIGU: No history of dysuria, frequency or incontinenceSKIN: Negative for lesions, rash, and itching.All other reviewed and negative other than HPI.PHYSICAL EXAM:BP 140/78 (BP Site: Right Arm, BP Position: Sitting, BP Cuff Size: LargeAdult) Pulse 74 Ht 185.8 cm (6' 1.14 ) Wt 105.2 kg (232 lb) BMI 30.49 kg/m?GENERAL: Alert and oriented, no acute distress, cooperative.CARDIAC: regular rate and rythmLUNGS: labored and audible breathing with wheezingABDOMEN: soft, moderately tender, umbilical hernia above the umbilicus isreducible and fat filledLABS:CBC:No results for input(s): WBC, HB, HCT, PLT in the last 168 hours.COAG: No results for input(s): APTT, INR in the last 168 hours.BMP: No results for input(s): GLUC, NA, K, CHLOR, CO2, ANION, BUN, CREATin the last 168 hours.CHEM: No results for input(s): ALB, TPROT, CA, MG in the last 168 hours.HEPATIC: No results for input(s): ALKPHOS, ALT, AST, TBILI, LIPASE in thelast 168 hours.Invalid input(s): AMYLASEIMAGING: *will obtain Angi Bhatia MDGeneMountain View HospitalY- [id number]/2:12 PM Normal [facility] PROGRESSon 07-21-2017 Protein mass conc HNO ID: [id number]: Thomas Duarte: (none)Author Type: PhysicianType: Progress NotesFiled: 07/21/2017 4:25 PMNote Text:PATIENT NAME: Shweta Braxton ?HOSPITAL SERVICE: [facility]PRAT[facility]ICIAN: Puneet Epperson, DO??ASSESSMENT/PLAN: 56 year old male presents with abdominal pain and smallumbilical hernia. Hernia is symptomatic, but partially reducible. Pt hasother medical problems which have not been addressed and no insurance, butis covered by [facility] through October. Pt is also pack a day smoker. Smoking,COPD and other issues will need to take precedence before surgery isscheduled?Pt has history of alcohol use and could have cirrhosis based on thehistory, almost certainly has COPD undiagnosed and not managed. Hisabdominal pain is significant, so the hernia should not be ignored.?EKG, echo, CXR, PFTsCBC/CMPFollow up after exams and labs completed??HPI: 56 year old male with history of back and leg pain, current smoker,little medical care who presents with umbilical pain and hernia.?Pt says he had leg pain treated with oral steroids. He blew up like aballoon and then the hernia appeared within a few months. He alsodescribes his whole abdomen dropping a few months before, but he couldnot describe this further. He denied any change in bowel habits and hasnot had nausea or vomiting.?He describes abdominal tenderness which keeps him from touching hisumbilicus or abdomen. He dried to squeeze through a tight spot recently,and had some much abdominal pain he had to lie down.?Pt is a pack per day smoker. He says he drank a bottle of crown royal overthe last two days to self medicate the hurt back and leg. He has back painwith sciatica to his left leg. 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 ? Packs/day: 1.00? ? Years: 40.00- Smokeless tobacco: Current User? ? ? Comment: used to smoke more- Alcohol use 20.0 oz/week? ? 20 Shots of liquor per week? ? ? Comment: lots lately to deal with leg pain??MEDICATIONS:Prior to Admission Medications:CURRENT MEDICATIONSNo prescriptions on file.???No current hospital medications on file.?ALLERGIES:ALLERGIESA LLERGIESNo Known Allergies?COMPLETE REVIEW OF SYSTEMS:GENERAL: No weight loss, malaise or feversRESPIRATORY: Negative for cough, wheezing or shortness of breath.CARDIOVASCULAR: Negative for chest pain, leg swelling or palpitations.GI: Positive for abdominal discomfort, see HPIGU: No history of dysuria, frequency or incontinenceSKIN: Negative for lesions, rash, and itching.All other reviewed and negative other than HPI.?PHYSICAL EXAM:BP 140/78 (BP Site: Right Arm, BP Position: Sitting, BP Cuff Size: LargeAdult) Pulse 74 Ht 185.8 cm (6' 1.14 ) Wt 105.2 kg (232 lb) BMI 30.49 kg/m??GENERAL: Alert and oriented, no acute distress, cooperative.CARDIAC: regular rate and rhythmLUNGS: labored and audible breathing with wheezingABDOMEN: soft, moderately tender, umbilical hernia above the umbilicus??Neli Bhatia MDGeneral SurgeryPGY- [id number]?07/21/20172:12 PMSTAFF NOTEAgree with assessment and planChronically incarcerated umbilical hernia, symptomaticChronic smoker, dyspnea, wheezingNo recent medical visitsWe need to assess his cardiac and lung functions before hernia surgery.Needs some blood works todayRefer to spine center for chronic severe back painRTC after the tests and optimizations to schedule the surgery.Needs to be done before OctoberHe needs to stop smoking before surgery.hTomas Matthews MD Normal [facility] Vital Signs Date Time Vital Sign Value Performing Clinician Facility 03-31-2024 14:56-0500 Diastolic blood pressure 96 mm[Hg] Ney AUSTIN [facility] [place] 03-31-2024 14:56-0500 Mean blood pressure 113 mm[Hg] Ney AUSTIN [facility] [place] 03-31-2024 14:56-0500 Systolic blood pressure 146 mm[Hg] Ney AUSTIN [facility] [place] 03-31-2024 14:21-0500 Blood Pressure Location Ney AUSTIN [facility] [place] 03-31-2024 14:21-0500 Diastolic blood pressure 114 mm[Hg] Ney FLORESL [facility] [place] 03-31-2024 14:21-0500 Heart rate 72 /min Ney FLORESL [facility] [place] 03-31-2024 14:21-0500 Respiratory rate 16 /min Ney FLORESL [facility] 03-31-2024 14:21-0500 Systolic blood pressure 144 mm[Hg] Ney FLORESL [facility] 01-21-2024 11:17-0500 Body height 188 cm Matthieu [employer] Work Phone: [facility] 01-21-2024 11:17-0500 Body mass index (BMI) [Ratio] 27.6 kg/m2 Matthieu Ourpalm DO Work Phone: [facility] 01-21-2024 11:17-0500 Body weight 97.52 kg Matthieu Ourpalm DO Work Phone: [facility] 01-21-2024 11:17-0500 Diastolic blood pressure 84 mm[Hg] Matthieu Ourpalm DO Work Phone: [facility] 01-21-2024 11:17-0500 Heart rate 89 /min Matthieu Andre DO Work Phone: [facility] 01-21-2024 11:17-0500 Respiratory rate 16 /min Matthieu Ourpalm DO Work Phone: [facility] 01-21-2024 11:17-0500 SaO2% (BldA) [Mass fraction] 99 % Matthieu Ourpalm DO Work Phone: [facility] 01-21-2024 11:17-0500 Systolic blood pressure 132 mm[Hg] Matthieu [employer] Work Phone: [facility] 11-28-2022 10:45-0400 Body height 187.96 cm Nj Zamarripa Other [employer] Other Encounters Encounter Date Encounter Type Care Provider Facility Start: 03-31-2024 End: 03-31-2024 ambulatory Ney AUSTIN Facility:[facility] Start: 03-31-2024 End: 03-31-2024 Patient encounter procedure Ney AUSTIN [facility] [place] Start: 03-16-2024 ambulatory Ney AUSTIN Facility:[facility]ann[facility] Arred[facility] Start: 02-09-2024 End: 02-09-2024 ambulatory [facility] Start: 02-09-2024 End: 02-09-2024 Encounter for other preprocedural examination [facility] Start: 01-21-2024 End: 01-21-2024 Bamboo flowsheet Matthieu Andre DO Work Phone: [facility] Start: 01-21-2024 End: 01-21-2024 Bamboo flowsheet Mattheiu Andre DO Work Phone: [facility] Start: 01-21-2024 End: 01-21-2024 Office outpatient new 45 minutes Matthieu Andre DO Work Phone: [facility] Comment on above: Inguinal hernia of l eft side without obstruction or gangrene (Primary Dx); Chest pain, unspecified type Start: 01-21-2024 End: 01-21-2024 ambulatory MATTHIEU SLOAN Not Available Start: 08-27-2023 End: 08-27-2023 ambulatory DAYANA MARIN Not Available Start: 11-28-2022 End: 11-28-2022 ambulatory Nj Gonzalezxa Other [employer] Other Start: 11-28-2022 Office outpatient vi sit 25 minutes Nj Zamarripa [facility] Start: 08-27-2022 Office outpatient vi sit 25 minutes Nj Olexa [facility] Start: 08-27-2022 End: 08-27-2022 ambulatory Nj Marilou Facility:[facility] Start: 08-27-2022 End: 08-27-2022 ambulatory Services [facility] Work Phone: [facility] Work Phone: Start: 08-27-2022 End: 08-27-2022 Patient encounter procedure Services [facility] Work Phone: [facility] Start: 08-21-2019 End: 08-21-2019 Patient encounter procedure NONE LISTED REQUEST Facility: Start: 06-07-2019 End: 06-07-2019 Patient encounter procedure NONE LISTED REQUEST Facility: Start: 06-01-2019 End: 06-02-2019 Patient encounter procedure NONE LISTED REQUEST Facility: Start: 04-30-2019 End: 04-30-2019 Patient encounter procedure [facility] Facility: Start: 2017 End: 2017 Patient encounter AURA Mirta SHEMAR [facility] Start: 2017 End: 09-12-2017 Patient encounter AURA STATON [facility] Start: 07-22-2017 End: 07-22-2017 Patient encounter THOMAS [facility] Start: 07-22-2017 End: 07-23-2017 Patient encounter THOMAS [facility] Start: 07-21-2017 Patient encounter THOMAS MATTHEWS [facility] Procedures Date Procedure Procedure Detail Performing Clinician Start: 08-27-2022 Plain X-ray of bilat eral shoulders Services [facility] Work Phone: None (qualifier value) Greyson shima AUSTIN Plan of Treatment Date Care Activity Detail Author Start: 01-21-2024 End: 01-21-2024 Patient encounter procedure 01/21/2024 11:15 AM EST Office Visit [facility] [address] [place] [address] Matthieu Sloan DO [address] [place] [address] Arrived [facility] Comment on above: Arrived Start: 11-02-2023 Influenza vaccination Influenza Vacc ine (#1) [facility] Start: 1960 Screening for malign ant neoplasm of colon [facility] Payers Date Payer Category Payer Self-pay [id number] 2021 Private Health Insurance [employer] Member Subscriber Plan / Payer (Effective 2021-Present) Name: Shweta Braxton Relation to Subscriber: Self Name: Shweta Braxton Payer ID: Not on file Group ID: Not on file Type: Not on file Address: [address] [id number] 2021 Private Health Insurance [id number] 1960 Unknown [id number]. 593 1959 Unknown [id number] [id number]. 593 1959 Unknown [id number] [id number]. 593 1959 Unknown [id number] [id number]. 593 1959 Unknown [id number] [id number]. 1259 1959 Unknown [id number] 2.16.840.1.475079.3.579.2. 1259 1959 Unknown [id number] 2.16.840.1.700011.3.579.2. 1259 1959 Unknown [id number] [id number]. 727 1959 Unknown [id number] Unknown [id number]. 531 Social History Date Type Detail Facility Start: 06-07-2019 Tobacco smoking status NHIS Smoker (finding) [facility] Start: 1960 Sex Assigned At Male F [facility] Start: 08-27-2023 End: 01-21-2024 Sex Assigned At [facility] Start: 08-26-1978 Tobacco smoking status AKIS Smokes tobacco daily [facility] Start: 08-26-1978 History of tobacco use Cigarette Smoker [facility] Start: 08-27-2023 End: 01-21-2024 Cigarettes smoked current (pack per day) - Reported 1 [facility] Start: 08-27-2023 Tobacco use and exposure Smokeless tobacco non-user [facility] Start: 08-27-2023 End: 01-21-2024 Alcoholic beverage intake Defer [facility] Start: 1960 Sex assigned at Not on file [facility] Start: 03-31-2024 Tobacco smoking status Heavy tobacco smoker (finding) [facility] Tobacco smoking status Never [facility] [place] NEGATED: Highlighted rowStart: NINF History of tobacco use Passive smoker [facility] Functional Status Date Assessment Result Facility 03-31-2024 Functional Status N/A [facility] [place] Clinical Notes 08-27-2022 to 04-01-2024 Matthieu Sloan DO - 01/21/2024 11:15 AM EST Note Date & Type Note Facility 04-01-2024 Note General Surgery Offi ce/Clinic Note Chief Complaint consultation for inguinal hernia HPI Staff 63 year old male presents on consultation from Dr. Sloan for left inguinal hernia. Reports noting bulge several years ago. He notes recent increase in size of bulge. Verbalized intermittent discomfort. He is able to reduce bulge without difficulty but does not stay reduced. Denies nausea, vomiting or bowel changes. No imaging completed. Cardiac clearance has been received. History of Present Illness 63 yo male with h/o htn, COPD, hyperlipidemia, discontinued his medications, no family doctor currently; referred for symptomatic left inguinal hernia; initially saw Dr Sloan; referred for Cardiac clearance; recent normal cardiac ECHO and stress test; has f/u with [employer] next week; left hernia present for several years, reducible, increasing in size, sore at times; no skin changes, no N/V or bowel changes; no abd operations; no asa or NSAID use; smokes 1 ppd. Review of Systems PHQ Score Initial Depression Screen Score: 0 SCORE ROS - Provider Constitutional: no fever, no sweats, no weight loss. Eyes: no glasses, no blurred vision, no visual loss. ENMT: no dentures, no hoarseness, no swallowing difficulties, no hearing loss, no ear infection(s), no nose bleeds. Cardiovascular: normal blood pressure, no chest pain, regular heartbeat, no heart murmur. Respiratory: no shortness of breath, no cough, no asthma, no wheezing. Gastrointestinal: no nausea, no vomiting, no diarrhea, no constipation, no blood in stool, no change in bowel habits, no abdominal pain, no hepatitis. Genitourinary: no kidney stones, no urine infection, no dysuria. Musculoskeletal: no pain, no weakness. Skin: no changing moles, no rash, no skin lumps. Neurologic: no seizures, no epilepsy, no headache. Psychiatric: no emotional or psychiatric problem. Heme/Lymph: no bleeding problems, no anemia, no blood clots, no transfusions. Allergy/Immunologic: no swollen lymph nodes/glands, no IV drug abuse. Other: Additional ROS info: Except as noted in the above Review of Systems and in the History of Present Illness, all other systems have been reviewed and are negative or noncontributory. Physical Exam Vitals & Measurements HR: 72(Peripheral) RR: 16 BP: 146/96 HT: 74 in HT: 187.9 cm WT: 97.7 kg WT: 215.391 lb BMI: 27.67 HEENT: normal conjunctiva, sclera clear, no scleral icterus, EOM intact, PERRLA, oral mucosa moist without lesions. Neck: trachea midline, no mass, symmetric, no thyromegaly or nodules, no adenopathy Respiratory: lungs expiratory wheezes, respirations non labored. Cardiovascular: regular rate and rhythm, no murmur, no pedal edema or varicosities. Gastrointestinal: soft, non distended, no tenderness, no masses, reducible left inguinal hernia, nontender, no skin changes; 1 cm umbilical hernia sac, reducible, nontender, diastasis recti no, no hepatosplenomegaly; normal bs Lymphatic: no cervical adenopathy, no supraclavicular adenopathy, no inguinal adenopathy. Musculoskeletal: normal gait, digits and nails without infection, nodes, cyanosis, clubbing. Skin: no rashes, no lesions, no ulcers, no subcutaneous nodules, induration. Psychiatric/Neuro: oriented to time, place, person, judgement normal, affect appropriate for age, insight intact, no focal deficits. Tests: , x-rays reviewed, review of old records completed , Discussed surgical options, risks, and possible complications with patient. Assessment/Plan 1. Reducible left inguinal hernia (K40.90: Unilateral inguinal hernia, without obstruction or gangrene, not specified as recurrent) plan left inguinal herniorrhaphy with mesh insertion, informed consent obtained. Patient instructed to decrease, or ideally quit, tobacco use in the perioperative period to minimize lung and wound complications, as well as risk of recurrent hernia. Ancef 2 gms IV prior to OR TAP block per anesthesia SCDs 2. Tobacco abuse (Z72.0: Tobacco use) We strongly recommend to quit tobacco use. Cigarette smoking harms nearly every organ of the body, causes many diseases, and reduces the health of smokers in general. Quitting smoking lowers your risk for smoking-related diseases and can add years to your life. We encourage you to visit www.smokefree.gov access to helpful resources including free telephone support. If you decide on prescription treatment to help you quit, your family doctor would be happy to provide these. Follow-up No qualifying data available Problem List/Past Medical History Ongoing BMI 27.0-27.9,adult Chronic obstructive pulmonary disease Essential hypertension Hyperlipidemia Overweight Reducible left inguinal hernia Tobacco abuse Historical No qualifying data Procedure/Surgical History None. Medications No active medications Allergies No Known Allergies No Known Medication Allergies Social History Alcohol Never., 03/31/2024 Substance Abuse - Denies Substance (more content not included)... [facility] Comment on above: Result Comment: Elec tronically Signed By: NORMAN RODRIGUEZ, Ney Lynn\Date and Time Signed: 04/01/24 16:07 EST 02-09-2024 Note [facility] Note Reason for cardiology consult: Preop cardiac evaluation for left inguinal hernia repair Chief Complaint: Dyspnea on exertion, occasional chest pain HPI: Shweta Braxton Jr. is a 63 y.o. male who used to have hypertension and hyperlipidemia however he did not see a PCP for many years and he stopped the medications on his own. He denies any prior cardiac history. He is a long-term smoker He states that he is physically very active. He reports occasional chest discomfort he described as in the remittent chest tightness usually with exertion but does not have to stop because of it. It occurs once to twice a month. Also he reports dyspnea on exertion. He denies orthopnea or paroxysmal nocturnal dyspnea or dizziness or palpitations or legs edema or leg discomfort on exertion He smokes 1 pack/day for about 50 years. He drinks alcohol occasionally. Denies any illicit drugs Regarding family history his mother had coronary artery disease and CABG as well as AICD but she was in her 80s Cardiology ROS: GENERAL: Denies fever, chills, night sweats, weight loss. HEENT: Denies changes in vision, photophobia, changes in hearing, epistaxis, oral bleeding. CARDIOVASCULAR: He reports chest pain, and exertional dyspnea as described above, he denies orthopnea/PND, lower extremity edema, palpitations, lightheadedness/dizziness. RESPIRATORY: Denies SOB, coughing, wheezing GI: Denies abdominal pain, nausea/vomiting, heartburn, melena/hematochezia. RENAL: Denies dysuria, hematuria, flank pain. MSK: Denies muscle weakness/pain, arthralgias/joint pain. NEUROLOGIC: Denies LOC, weakness, numbness, headaches. SKIN: Denies abnormal rashes or bleeding. PSYCH: Denies significant anxiety, depression, sleep disturbances. Past Medical History He has no past medical history on file. Surgical History He has no past surgical history on file. Social History He reports that he has been smoking cigarettes. He has never used smokeless tobacco. He reports that he does not currently use alcohol. No history on file for drug use. Family History Family History Problem Relation Name Age of Onset Other (defibrillator) Mother Coronary artery disease Mother Allergies Patient has no known allergies. Medications No current outpatient medications on file. Last Recorded Vitals Visit Vitals BP 122/78 (BP Location: Right arm, Patient Position: Sitting) Pulse 69 Ht 1.88 m (6' 2 ) Wt 96.2 kg (212 lb) SpO2 99% BMI 27.22 kg/m??? Smoking Status Every Day BSA 2.24 m??? Physical Examination: GENERAL: alert and oriented x3, well developed, in no acute distress. HEAD: atraumatic, normocephalic. EYES: ELKIN, EOMI. NECK: trachea midline, no JVD present, no carotid bruits present. CARDIAC: S1, S2 present. RRR. No murmur, rubs, or gallops. RESPIRATORY: CTAB, no increased effort of breathing, no rales, rhonchi, or wheezing. ABDOMEN: soft, nontender, nondistended. EXTREMITIES: Mild left lower extremity edema with varicose veins bilaterally. No rash/skin discoloration present. NEURO: strength/sensation equal and symmetric in bilateral upper and lower extremities. PSYCH: appropriate mood, affect, and judgement. Labs: CBC: No results found for: WBC , RBC , HGB , HCT , MCV , RDW , PLT PT/INR No results found for: PT , INR BMP: No results found for: NA , K , CL , BUN , CREATININE , EGFR , GLU LFTs: No results found for: BILITOT , BILIDIR , ALKPHOS , GGT , AST , ALT , ALBUMIN , PROT Lipids: No results found for: CHOL No results found for: HDL No results found for: LDLCALC No results found for: TRIG No components found for: CHOLHDL ANDREW: No results found for: TSH HBA1c: No results found for: HGBA1C BNP: No results found for: BNP Last Images: EKG today 02/09/2024 showed normal sinus rhythm, normal EKG Assessment and Plan: Pre-op evaluation for left inguinal hernia repair Dyspnea on exertion Chest pain History of hypertension, but blood pressure is good today History of hyperlipidemia Tobacco abuse, 1 pack/day for 50 years Varicose veins bilateral Plan: Echo to evaluate dyspnea on exertion Stress nuclear test to evaluate chest pain I will obtain basic lipids including CBC, BMP, TSH, lipids with liver enzymes I will call the patient with the result and with any further recommendations. The patient was advised regarding the importance of smoking cessation to improve his long-term prognosis and different options were discussed Follow-up with me in 2-month or sooner if needed Alexandrea Barger MD,[facility] 01-21-2024 History of Present illness Narrative General Surgery H&P Shweta Braxton 1960 Shweta Braxton is a 63 y.o. male presents with chief complaint of left inguinal Hernia. He has had it for a few years. He states that it does cause him pain and discomfort at times. He states that he normally pushes the hernia back in himself. He states that he has noticed it getting larger recently. Pt states that he has been getting a intermittent chest pain, last episode was this morning. He was encouraged to see a care coordination manager and referral given. He was also instructed that if the pain continues to happen he should go to the ER to have his heart evaluated. Denies any abdominal pain. Denies fevers, chills, or sweats. Denies nausea or vomiting. Discussed surgery and risks for procedure. Patient would like to proceed with surgery. Had detailed discussion that he must see a PCP and care coordination manager and obtain surgical risk stratification prior to having a surgery date selected. He smokes 1 pack of cigarettes daily. Discussed the issues with wound healing and to obtain from smoking around surgery time. SUBJECTIVE: MEDICATIONS: ALLERGIES Current Outpatient Medications Medication Instructions meloxicam (MOBIC) 15 mg, Daily No Known Allergies PAST MEDICAL HISTORY: SOCIAL HISTORY SURGICAL HISTORY: History reviewed. No pertinent past medical history. Social History Tobacco Use Smoking status: Every Day Current packs/day: 1.00 Average packs/day: 1 pack/day for 45.4 years (45.4 ttl pk-yrs) Types: Cigarettes Start date: 08/26/1978 Passive exposure: Never Smokeless tobacco: Never Vaping Use Vaping status: Unknown Substance Use Topics Alcohol use: Defer Drug use: Defer History reviewed. No pertinent surgical history. No family history on file. No Known Allergies History reviewed. No pertinent surgical history. Tobacco Use: High Risk (01/21/2024) Patient History Smoking Tobacco Use: Every Day Smokeless Tobacco Use: Never Passive Exposure: Never Alcohol Use: Not on file Depression: Not on file Physical Activity: Not on file REVIEW OF SYMPTOMS: Review of Systems All other systems reviewed and are negative. 10 systems were reviewed. Positives noted above. Remainder are negative per CMS guidelines OBJECTIVE: Visit Vitals BP 132/84 Pulse 89 Resp 16 Ht 6' 2 Wt 215 lb SpO2 99% BMI 27.60 kg/m Smoking Status Every Day BSA 2.26 m Physical Exam Vitals reviewed. General: AAOx3, NAD Head: atraumatic normocephalic Neck: trachea midline. No masses or lymphadenopathy Heart: Regular rate and rhythm Lungs: equal chest rise and fall, non labored breathing Abdomen: soft, nontender, and non distended, left sided inguinal hernia noted, reducible Ext: motor 5/5 all extremities with no gross deformities Psych: alert and oriented, behavior appropriate ASSESSMENT AND PLAN: Assessment/Plan Diagnoses and all orders for this visit: Inguinal hernia of left side without obstruction or gangrene Chest pain, unspecified type - Ambulatory referral to Family Practice; Future - Ambulatory referral to Cardiology; Future Patient informed of the risks of robotic inguinal hernia repair of left with mesh procedure which include but not limited to bleeding, scarring, damage to nearby structures, chronic pain, wound healing issues, possible need for more procedures and risks of anesthesia. Patient understood risks. We discussed that prior to scheduling the surgery he will need to see a PCP and care coordination manager for his intermittent chest pain. Will schedule at patient's earliest convenience after having cardiac clearance/work up. Encouraged to stop smoking. Thank you, Travis Sloan DO documented in this encounter [facility] 11-28-2022 Evaluation note Encounter Date Diagnosis Assessment Notes Nov, Traumatic tear of supraspinatus tendon of right shoulder, subsequent encounter (ICD-10 - S46.811D) Extensive discussion about current condition and treatment options available. This appears to be a chronic rotator cuff tear. We discussed the importance of maintaining shoulder motion and gentle cuff strengthening exericse. Discussed the use of anti-inflammato ry medication. We again discussed surgical options including arthroscopy and arthroplasty replacement options. Patient would require reverse total shoulder arthroplasty. Patient states he is not ready to consider surgical treatment at this time as he has to work and need hernia repair. He states he had been obtaining narcotic pain medication from an outside source. Extensive discussion with patient regarding substance use preoperatively. Patient is aware that he will be drug tested preoperatively. A 2/1cc marcaine / kenalog cortisone injection was performed into the subacromial space under sterile technique. Patient tolerated the injection well with no adverse reaction. Clinical Notes: Patient counseled on the importance of quitting smoking in regard to patient's overall health as well as postoperative healing. Patient states they are not ready to quit at this time. Nov, Primary osteoarthritis of right shoulder (ICD-10 - M19.011) Nov, Rotator cuff arthropathy, right (ICD-10 - M12.811) Nov, Right shoulder pain (ICD-10 - M25.511) Nov, Acute pain of left shoulder (ICD-10 - M25.512) [facility] Other 06-27-2023 Evaluation note* Encounter Date Diagnosis Assessment Notes Treatment Notes Treatment Clinical Notes Aug, Traumatic tear of supraspinatus tendon of right shoulder, subsequent encounter (ICD-10 - S46.811D) Extensive discussion about current condition and treatment options available. This appears to be a chronic rotator cuff tear. We discussed the importance of maintaining shoulder motion and gentle cuff strengthening exericse. Discussed the use of anti-inflammatory medication. Discussed that occasional cortisone injection may be helpful for pain relief. Discussed surgical options including arthroscopy and arthroplasty replacement options. Patient would require reverse total shoulder arthroplasty. Patient states he is not ready to consider surgical treatment at this time and would like to get through the summer. In the meantime, a 2/1cc marcaine / kenalog cortisone injection was performed into the subacromial space under sterile technique. Patient tolerated the injection well with no adverse reaction. Patient counseled on the importance of quitting smoking in regard to patient's overall health as well as postoperative healing. Patient states they are not ready to quit at this time. Aug, Primary osteoarthritis of right shoulder (ICD-10 - M19.011) Aug, Rotator cuff arthropathy, right (ICD-10 - M12.811) Aug, Right shoulder pain (ICD-10 - M25.511) Aug, Acute pain of left shoulder (ICD-10 - M25.512) [facility] Other Evaluation + Plan note No data available for this section [facility] General [facility] Evaluation noteNo assessment information available [facility] Work Phone: Evaluation note* Diagnosis Inguinal hernia of left side without obstruction or gangrene- Primary Chest pain, unspecified type documented in this encounter [facility] N[facility]ative - Reported* Type Description Date Medical History peripheral vascular disease Medical History high blood pressure Medical History high cholesterol [facility] Other Hospital Discharge instructions No data available for this section [facility] General Surgery [place] Progress note No data available for this section [facility] General Surgery [place] Summary Purpose Family History No Family History Records FoundNo Family History Records FoundNo Family History Records FoundNo Family History Records FoundNo Family History Records Found No data available for this section No Family History Records Found Advance Directives No Advanced Directives Records Found Advance Directive Response Recorded Date/ Time Advance Directives No May 05 18 7:08am Additional Source Comments (unrecognized sect ion and content) No Status Records FoundNo Status Records FoundNo Status Records FoundNo Status Records FoundNo Status Records FoundNo Status Records Found INFORMATION SOURCE (unrecogn ized section and content) DATE CREATED AUTHOR 10/14/2017 [facility] DATE CREATED AUTHOR AUTHOR'S ORGANIZ ATION 09/18/[address] [facility] DATE CREATED AUTHOR AUTHOR'S ORGANIZ ATION 09/02/[address] [facility] DATE CREATED AUTHOR AUTHOR'S ORGANIZ ATION 01/24/2024 [facility] EPIC DATE CREATED AUTHOR AUTHOR'S ORGANIZ ATION 03/18/2024 [facility] DATE CREATED AUTHOR AUTHOR'S ORGANIZ ATION 04/02/2024 [facility] Care Teams (unrecognized sec tion and content) Team Status: Active Member Role Status Dates Services Family Health Primary Care Provider Active Team Status: Inactive Member Role Status Dates Services Family Health Primary Care Provider Active Nj Zamarripa MD Attending Provider Active [employer] Technician Relationship Specialty Start Date End Date Unallocated, Leny Cantrell MD [address] [place] [id number] PCP - General Family Medicine 6/26/24 [employer] Technician Relationship Specialty Start Date End Date Unallocated, [place] Provider, [address] [place] [address] PCP - General Family Medicine 08/27/23 Goals (unrecognized section and content) Goals may be documented in a n alternate sectionNo InformationNo Information No data available for this section REASON FOR VISIT (unrecogniz ed section and content) Reason Comments Hernia Pt presents with com plaints of a left inguinal hernia that he has had for a few years. He states that it does cause him pain and discomfort. He states that he normally pushes the hernia back in himself. He states that he has noticed it getting larger recently.Pt states that he has been getting a lot of severe chest pain, last episode was this morning and he states he almost fell to the floor from pain. FOR RECORDS PERTAINING TO PATIENTS WHO ARE OR HAVE BEEN ENROLLED IN A CHEMICAL DEPENDENCY/SUBSTANCEABUSE PROGRAM, SOME INFORMATION MAY BE OMITTED. This clinical summary was aggregated from multiple sources. Caution should be exercised in using it in the provision of clinical care. This summary normalizes information from multiple sources, and as a consequence, information in this document may materially change the coding, format and clinical context of patient data. In addition, data may be omitted in some cases. CLINICAL DECISIONS SHOULD BE BASED ON THE PRIMARY CLINICAL RECORDS. [employer] provides no warranty or guarantee of the accuracy or completeness of information in this document.
--- NOTE | 2024-04-16 14:09 | XR_ITS ---
The [address] [address] Patient Name: SHWETA BRAXTON MRN: [id number] date: 1960 Sex: M Assigned Patient Location: [facility] Current Patient Location: Accession/Order Number: [id number] Exam Date: 04/16/2024 14:12 Report Date: 04/17/2024 08:41 At the request of: NICHELLE AUSTIN Procedure: XR chest 2V EXAMINATION: XR chest 2V HISTORY: inguinal Hernia COMPARISON: No relevant comparison available. TECHNIQUE: PA and lateral FINDINGS: LUNGS: Right basilar nodule, size and density suggests granulomas. No additional focal infiltrates VASCULATURE: No increased pulmonary vasculature. PLEURA: No pneumothorax, effusion, or pleural thickening. CARDIAC: No cardiomegaly or cardiac silhouette abnormality. MEDIASTINUM: No visible mass or adenopathy. BONES: No fracture or visible bone lesion. OTHER: Negative. XR/XR chest 2V IMPRESSION: Right basilar nodule, granuloma favored. Electronically authenticated by: BERTA MCDUFFIE Date: 04/17/2024 08:41
== END 2024-04-16 13:25 | disposition home or self-care (01) ==
LOC: PST 13:24
PROVIDERS: Visit Provider Surgery
DX: Z01.810 Encounter for preprocedural cardiovascular examination (principal); K40.90 Unilateral inguinal hernia, without obstruction or gangrene, not specified as recurrent; R91.8 Other nonspecific abnormal finding of lung field
CPT/HCPCS: 71046

== ENCOUNTER 2024-08-07 08:34 | Outpatient (OUT) | payer OTHER, SELFPAY ==
--- OUTSIDE RECORDS SUMMARY | 2020-07-27 09:30 | XMS_ITS | Continuity of Care Document ---
Author Organization 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 Role Phone Gera Ortiz DDS Unavailable Unavail able Allergies, Adverse Reactions, Alerts Substance Reaction Status Criticality No Known Allergies Active No Inform ation Medications Medication Instructions Dosage Effective Dates (start - stop) Status Comments Percocet 5 mg-325 mg tablet take 1 tablet by oral route every 6 hours as needed 1.00 tablet - Active amoxicillin 500 mg capsule take 1 capsule by oral route every 8 hours 500 MG - Active Procedures Procedure Date Panoramic Film Oral Hygiene Instruction Extract; Erupted Th/exposted Rt Extract; Erupted Th/exposted Rt Extract; Erupted Th/exposted Rt Extract; Erupted Th/exposted Rt Extract; Erupted Th/exposted Rt Alveoplasty Not In Conjuction With Extra ctions Alveoplasty Not In Conjuction With Extra ctions Alveoloplasty W/extractions 1 - 3 Teeth Alveoloplasty W/extractions 1 - 3 Teeth Advance Directives Directive Yes / No Effective Date File Name No Information Encounters Encounter Description Practice Location Reason(s) For Visit Diagnoses Date Provider Providers Copied on Encounter [facility], [address], [place], [place], [id number], [place] tel:[phone] Dental Clinic consult (chief complaint) Encounter for screening for dental disorders Angel Boss. [address] [place] [address], [id number], [place]. tel:[phone] Family History Family Member Type Diagnosis Age At Onset No Information Payers Payer name Insurance type Covered constitution party ID Carlos miller(darwin) Josy [facility] CP C[employer] [address] [employer] [id number] D Medicaid Wrap - [facility] [id number] Social History Type Description Quantity Date Captured Comments Alcohol Use Details Caffeine Use Details coffee 3 cups per day Tobacco Use Status Light cigarette smok er (1-9 cigs/day) Smoking Status Light tobacco smoker Smoking Tobacco Use Details Cigarette: Years Used 35 Cigarette: 5 Cigarettes per day, Pack Year: 8.75 Sex Male Sexual Orientation Straight or heterosexual Gender Identity Male Vital Signs Date / Time: Height Weight BMI Pulse Rate Blood Pressure Temperature Respiratory Rate Body Surface Area Head Circumference Head Circ. Percentile Wt./Mac. Percentile BMI percentile Pulse Ox Inhaled Ox 1:40 PM 108 /min 131/93 mm[Hg] 97.50 F Chief Complaint And Reason For Visit From encounter dated 07/27/2020 13:30'. consult (chief complaint). Description: consult Reason For Referral Reason For Referral No Information History Of Present Illness Encounter Date Complaint History Of Prese nt Illness consult consult Functional Status Date Functional Assessmen t No Information Instructions Date Instruction Additional Infor mation No Information Assessments Type Assessment Date No Information Patient Care Teams Name Effective Dates (start - stop) Status Members No Information
--- OUTSIDE RECORDS SUMMARY | 2024-01-26 04:40 | XMS_ITS ---
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 No Points 0 Interpretation Negative Tobacco Control (Standard) Question Answer Notes Tobacco use: Current smoker Encounters Encounter Location Date Provider Diagnosis [facility] Office [address] [place] [address] [place] [address] 01/26/2024 Scott Mayelin Effusion of bursa of left knee M25.462 Assessments Encounter Date Diagnosis (ICD Code) Assessment Notes Treatment Notes Treatment Clinical Notes Section Notes 01/26/2024 Effusion of bursa of left knee (ICD-10 - M25.462) 01/26/2024 Other For his infrapatellar traumatic bursitis this is overall improving. We would expect this to resolve with time. He will continue avoid pressure on it. He will follow-up on an as-needed basis. Import medication Plan Of Treatment Treatment Notes Assessment Notes Other For his infrapatellar traumatic bursitis this is overall improving. We would expect this to resolve with time. He will continue avoid pressure on it. He will follow-up on an as-needed basis. Import medication Next Appt Details Follow Up: prn, Reason: Progress Notes * SHWETA BRAXTON DDOB: 0 (63 yo M)Acc No.[id number]:01/26/2024 Patient: SHWETA PEARCE Provider: Eric Dick MD :1960 A ge:63 Y S ex:Male Date:01/26/2024 Address:[facility] [place], [place] [id number] Pcp:Referral Self Subjective: * Chief Complaints: * L eft patella bursa rupture * HPI: G eneral Follow Up Information: Patient presents today for follow-up of his left knee infrapatellar bursa traumatic rupture. He continues to have some discomfort. This occurs if he tries to apply direct pressure while kneeling. * Medical History: * Surgical History: N o Surgical History documented. * Family History: N o Family History documented.. * Social History: E xercise regularly D o you exercise? Y es. W hat is your place of residence? W here do you live? P rivate apartment. A BRITTANY-C (Standard) D id you have a drink containing alcohol in the past year? N o, P oints 0 , I nterpretation N egative. T obacco Control (Standard) T obacco use: C urrent smoker. * Medications: N one * Allergies: N .K.D.A.no[Allergies Verified] Objective: * Vitals: * Examination: G eneral examination: E xamination today of his left knee reveals no effusion. He has swelling of the infrapatellar bursa. There is no erythema or warmth. He is not tender to palpation. He has full active knee range of motion. He has a normal gait. X -ray Imaging Studies: M RI Imaging Studies: Assessment: * Assessment: 1. E ffusion of bursa of left knee - M25.462 (Primary) Plan: * Treatment: * Procedure Codes: * Follow Up: p rn Forms: * Images: * Sign off status: Completed true * Provider: Eric Dick MD Date: 03/27/2023 Generated for Eloyi orly/Denny/eTransmitting on: 0 08/07/2024 08:39 AM EDT History and Physical Notes * HPI (History of Present Illness) Category Sub-Category Detail Notes Category Not es General Follow Up Information Patient presents tod ay for follow-up of his left knee infrapatellar bursa traumatic rupture. He continues to have some discomfort. This occurs if he tries to apply direct pressure while kneeling. Examination Category Sub-Category Detail Notes Category Not es General examination Examinat ion today of his left knee reveals no effusion. He has swelling of the infrapatellar bursa. There is no erythema or warmth. He is not tender to palpation. He has full active knee range of motion. He has a normal gait. X-ray Imaging Studies MRI Imaging Studies
--- OUTSIDE RECORDS SUMMARY | 2024-08-07 08:39 | XMS_ITS | Patient Health Record ---
Demographics Address [address] [place] [address] Preferred Language en Marital Status unmarried Holiness Affiliation Unknown Race White Ethnic Group Not or Lati no Author Organization [facility] Address [address] [place] [address] Support Name Relationship Address Phone NERISSA ARMSTRONG Emergency Contact Unknown SHWETA BRAXTON JR Guarantor Unknown [phone] Allergies No Known Allergies Reason For Referral No Information Medications Medication SIG (Take, Route, Frequency, Duration) Notes Start Date End Date Status Cyclobenzaprine HCl 5 MG 1 tablet at bed time as needed Orally Once a day for 30 day(s) 01/15/2022 Active Melatonin 3 MG 1 tablet at bedtime as needed Orally Once a day for 90 day(s) Active Ibuprofen 800 MG 1 tablet with food o r milk as needed Orally Three times a day for 30 days Active Combivent Respimat 20-100 MCG/ACT 1 puff as needed Inhalation every 6 hrs for 30 days 04/03/2022 Active Atorvastatin Calcium 40 MG 1 tablet Oral ly Once a day for 90 Not-Taking Lisinopril 20 MG 1 tablet Orally Once a day for 90 days Not-Taking Social History Tobacco Use: Social History Observation Description Date Details (start date - stop date) Current Smoker 10/01/1973 - NA Tobacco Screen: Question Answer Notes Are you a: current smoker When did you start smoking 10/01/1973 How often do you smoke cigarettes? every day How many cigarettes a day do you smoke? 11-20 Alcohol Screening: Question Answer Notes Did you have a drink contain ing alcohol in the past year? Yes How often did you have a dri nk containing alcohol in the past year? Monthly or less (1 point) How many drinks did you have on a typical day when you were drinking in the past year? 3 or 4 (1 point) How often did you have six o r more drinks on one occasion in the past year? Less than monthly (1 point) Points 3 Interpretation Negative Section Notes: smoking 1/2 pack day, 35 yea rs, 2packs/day current smoker, occasional a lcohol'; history cocaine abuse Problems Problem Type SNOMED Code ICD Code Onset Dates Problem Status W/U Status Risk Notes Problem 6273575 Primary insomnia (F51.01) Active confirmed Problem 75162362 Other chronic pa in (G89.29) Active confirmed Problem 52545442048335587 Pain in right shoulder (M25.511) Active confirmed Problem 006912934 Onychomycosis (B35.1) Active confirmed Problem 90586801 Essential hypertension (I10) Active confirmed Problem 33192374 Restless leg syndrome (G25.81) Active confirmed Problem 79177112 Other chronic pa in (G89.29) Active confirmed Problem 39508055 Chronic obstruct paulette pulmonary disease, unspecified COPD type (J44.9) Active confirmed Problem 49473104 Hyperlipidemia, unspecified hyperlipidemia type (E78.5) Active confirmed Problem 65359648 Tinnitus of righ t ear (H93.11) Active confirmed Problem 92392787 Left elbow pain (M25.522) Active confirmed Problem 852187649 Edema of left lo wer extremity (R60.0) Problem resolved confirmed Problem 583476750 Dislocation of l eft acromioclavicular joint, sequela (S43.102S) Problem resolved confirmed Plan Of Treatment No Information Insurance Providers Payer Name Payer Address Payer Phone Subscriber Number Group Number Insured Name Patient Relationship to Insured Coverage Start Date Coverage End Date [employer] [place] Medicaid [address] [place] [address] [id number] [place] SHWETA BRAXTON JR Self - patient is the insured 3 Wrap ABD [facility] [address] [place] [address] [id number] IRAIS RENTERIA SHWETA Self - patient is the insured [address] DQ [facility] [place]-termed 22 [address] [place] [address] [id number] [place] SHWETA BRAXTON JR Self - patient is the insured 0 zDental Medicaid ABD after [facility]-termed 22 [address] [place] [address] [id number] SHWETA BRAXTON JR Self - patient is the insured 1 Medical (General) History Medical History History ICD Code Hx of cocaine abuse Edema of left lower extremity (resolved 08/29/2021) undefined Dislocation of left acromioclavicular jeana int, sequela (resolved 08/29/2021) Surgical History Surgery Date(Month/Year) Hemrroidectomy
--- OUTSIDE RECORDS SUMMARY | 2024-08-07 08:39 | XMS_ITS | Patient Health Record ---
Demographics Address [address] [place] [address] Mobile Preferred Language en Marital Status unmarried Jainism Affiliation Unknown Race White Ethnic Group Unknown Author Organization [facility] Address [address] [place] [address] Care Team Providers Care Rent And Miscellaneous Remittance Clerk Name Role Phone Self, Referral Primary Care Provider Ziyad luis a Dick Scott Unavailable [phone] Doyle Ami Unavailable [phone] Allergies No Known Allergies Reason For Referral No Information Social History Tobacco Use: Social History Observation Description Date Details (start date - stop date) Current Smoker NA - NA AUDIT-C (Standard) Question Answer Notes Did you have a drink containing alcohol in the p ast year? No Points 0 Interpretation Negative Tobacco Control (Standard) Question Answer Notes Tobacco use: Current smoker Vital Signs Height 6'2 in 01/12/2024 Weight 200 lbs 01/12/2024 BMI 25.68 01/12/2024 Encounters Encounter Location Date Provider Diagnosis [facility] Office [address] [place] [phone] 01/12/2024 Ami Kwon Effusion of bursa of left knee M25.462 [facility] Office [address] [place] [phone] 01/26/2024 Scott Dick Effusion of bursa of left knee M25.462 Assessments Encounter Date Diagnosis (ICD Code) Assessment Notes Treatment Notes Treatment Clinical Notes Section Notes 01/26/2024 Effusion of bursa of left knee (ICD-10 - M25.462) 01/12/2024 Effusion of bursa of left knee (ICD-10 - M25.462) Left infrapatellar bursitis 01/12/2024 Other The patients le ft knee pain is consistant with infrapatellar bursitis. It does not appear infected today. We discussed we will conservatively treat this with rest, activity modification, and NSAIDs. He can bear weight as tolerated. We will see him back in 2 weeks for reevaluation. Left infrapatellar bursitis 01/26/2024 Other For his infrapatellar traumatic bursitis this is overall improving. We would expect this to resolve with time. He will continue avoid pressure on it. He will follow-up on an as-needed basis. Import medication Plan Of Treatment No Information Insurance Providers Payer Name Payer Address Payer Phone Subscriber Number Group Number Insured Name Patient Relationship to Insured Coverage Start Date Coverage End Date Medicaid [employer] [place] [address] [place] [address] [id number] SHWETA BRAXTON Self - patient is the insured Medical (General) History Medical History History ICD Code Respiratory problems: Heart problems: High Blood Pressure Depression Anxiety
--- OUTSIDE RECORDS SUMMARY | 2024-08-07 08:40 | XMS_ITS | Referral Summary ---
Author Organization [facility] Address [address] [place] [address] Care Team Providers Care Health Information Technician Name Role Phone Unavailable Primary Care Provider Unavailabl e Allergies No known active allergies Medications Medication Sig Dispensed Refills Start Date End Date Status losartan (Cozaar) 50 mg tabletIndications:Essentia l hypertension Take 1 tablet (50 mg) by mouth in the morning. 30 tablet 11 04/21/2024 6 Active rosuvastatin (Crestor) 20 mg tabletIndications:Pure hypercholesterolemia Take 1 tablet (20 mg) by mouth in the morning. 30 tablet 11 04/21/2024 6 Active Active Problems Problem Noted Date Diagnosed Date Pre-op evaluation 02/09/2024 POWER (dyspnea on exertion) 02/09/2024 Precordial pain 02/09/2024 Essential hypertension 02/09/2024 Hyperlipidemia 02/09/2024 Tobacco abuse 02/09/2024 Unilateral inguinal hernia without obstruction o r gangrene 02/09/2024 Social History Tobacco Use Types Packs/Day Years Used Date Smoking Tobacco: Every Day Cigarettes Smokeless Tobacco: Never Tobacco Cessation:Ready to Q uit: Not Asked; Counseling Given: Not Answered Alcohol Use Standard Drinks/Week Comments Not Currently 0 (1 standard drink = 0.6 oz pur e alcohol) Sex and Gender Information Value Date Recorded Sex Assigned at Not on file Gender Identity Not on file Sexual Orientation Not on file Last Filed Vital Signs Vital Sign Reading Time Taken Comments Blood Pressure 144/83 04/21/2024 1:50 PM EST Pulse 54 04/21/2024 1:50 PM EST Temperature - - Respiratory Rate - - Oxygen Saturation 93% 04/21/2024 1:50 PM EST Inhaled Oxygen Concentration - - Weight 99.3 kg (219 lb) 04/21/2024 1:50 PM EST Height 188 cm (6' 2 ) 04/21/2024 1:50 PM EST Body Mass Index 28.12 04/21/2024 1:50 PM EST Plan of Treatment Upcoming Encounters Date Type Department Care Team (Late st Contact Info) Description 08/09/2024 3:40 PM EDT Office Visit [facility] [address] [place] [phone] Sivakumar Thomas MD [address] [place] [address] Guarantor Name Account Type Relation to Patient Date of Phone Billing Address Omari Cisse Jr. Personal/Famil y Self 1960 [address] [place] [address]
--- OUTSIDE RECORDS SUMMARY | 2024-08-07 08:40 | XMS_ITS | Clinical Summary ---
Author Organization [facility] Address [address] [place] [address] Care Team Providers Care Lead Game Designer Name Role Phone Unavailable Primary Care Provider [...] hernia without obstruction o r gangrene 02/09/2024 Family History Medical History Relation Name Comments Coronary artery disease Mother defibrillator Mother Relation Name Status Comments Mother Social History Tobacco Use Types Packs/Day Years [...] Description 08/09/2024 3:40 PM EDT Office Visit [facility] at [facility] [address] [place] [address] Sivakumar Thomas MD [address] [place] [address] Health Maintenance Due Date Last Done Comments CT Colonography 1959 Colonoscopy 1959 Colorectal Cancer Screening 1959 FIT-DNA 1959 FIT 1959 FOBT 1960 Medicare Initial Physical (IPPE) 1959 Sigmoidoscopy 1960 Pneumococcal Vaccine: Pediat rics (0 to 5 Years) and At-Risk Patients (6 to 64 Years) (1 of 2 - PCV) 09/10/1965 Depression Screening 1971 Adult Tetanus 09/10/1981 Zoster Vaccines (1 of 2) 09/10/2009 COVID-19 Vaccine (2023-2 5 season) 2023 Influenza Vaccine (Season Ended) 2024 HIB Vaccines Aged Out No longer eligi ble based on patient's age to complete this topic HPV Vaccines Aged Out No longer eligi ble based on patient's age to complete this topic IPV Vaccines Aged Out No longer eligi ble based on patient's age to complete this topic Meningococcal B Vaccine Aged Out No l onger eligible based on patient's age to complete this topic Meningococcal Vaccine Aged Out No bianka raymon eligible based on patient's age to complete this topic Rotavirus Vaccines Aged Out No longer eligible based on patient's age to complete this topic Guarantor Name Account Type Relation to Patient Date of Phone Billing Address Omari Cisse Jr. Personal/Famil y Self 1960 [address] [place] [address]
--- OUTSIDE RECORDS SUMMARY | 2024-08-07 08:40 | XMS_ITS | Encounter Summary ---
Demographics Address [address] [place] [address] Home Phone Mobile Phone Preferred Language en Marital Status Unmarried Confucianism Affiliation Unknown Race White Ethnic Group Not or Lati no Author Organization [facility] Address [address] [place] [address] Care Team Providers Care Trauma Doctor Name Role Phone Unallocated, Noms Provider Primary Care Provi pankaj Encounter Details Date Type Department Care Team (Late st Contact Info) Description 05/18/2024 Orders Only [facility] [address] [place] [id number] Charlie Sloan DO Inguinal hernia of left side without obstruction or gangrene; Chest pain, unspecified type Social History Tobacco Use Types Packs/Day Years Used Date Smoking Tobacco: Every Day Cigarettes 1 45.9 Started: 08/26/1978 Passive Smoke Exposure: Never Smokeless Tobacco: Never Alcohol Use Standard Drinks/Week Comments Defer 0 (1 standard drink = 0.6 oz pur e alcohol) Sex and Gender Information Value Date Recorded Sex Assigned at Not on file Legal Sex Male 10:12 PM EDT Gender Identity Not on file Sexual Orientation Not on file documented as of this encounter Plan of Treatment Not on file documented as of this encounter Procedures Procedure Name Priority Date/Time Associated Diagnosis Comments AMB REFERRAL TO CARDIOLOGY Routine 05/18/2024 2:53 PM EDT Chest pain, unspecified type documented in this encounter Results * Ambulatory referral to Cardiology (05/18/2024 2:53 PM EDT) Charlie Sloan DO OUTPATIENT REFERRAL ORDERABLES F inal Result documented in this encounter Visit Diagnoses Diagnosis Inguinal hernia of left side without obstruction or gangrene Chest pain, unspecified type documented in this encounter Care Teams Trauma Doctor Relationship Specialty Start Date End Date Unallocated, Noms ProviderMD [address] [place] [address] PCP - General Family Medicine 08/27/23 documented as of this encounter
--- OUTSIDE RECORDS SUMMARY | 2024-08-07 08:40 | XMS_ITS | CCD ---
Demographics Address [address] [place] [address] Preferred Language en Marital Status Single Gnosticism Affiliation Unknown Race Unknown Ethnic Group Not or Lati no Author Organization [facility] Care Team Providers Care Senior National Account Manager Name Role Phone AMINIAN, ALI Unavailable Unavailable AMINIAN, ALI Unavailable Unavailable AMINIAN, ALI Unavailable Unavailable AMINIAN, ALI Unavailable Unavailable AMINIAN, ALI Unavailable Unavailable SHEMAR, TAGREED M Unavailable Unavailable AMINIAN, ALI Unavailable Unavailable HSEMAR, TAGREED M Unavailable Unavailable PAY, MINNIE Admitting Unavailable PAY, MINNIE Attending Unavailable REQUEST, NONE LISTED Primary Care Unavailable PAY, MINNIE Consulting Unavailable REQUEST, NONE LISTED Primary Care Unavailable TANVIR TOBIAS Admitting Unavailable TANVIR TOBIAS Attending Unavailable TANVIR TOBIAS Consulting Unavailable REQUEST, NONE LISTED Primary Care Unavailable SARI, ROBIN Admitting Unavailable SARI ROBIN Attending Unavailable DEVONTE GODDARD Consulting Unavailabl e REQUEST, NONE LISTED Primary Care Unavailable DAYNA LONG Admitting Unavailable DAYNA LONG Attending Unavailable DAYNA LONG Consulting Unavailable [facility] Services Primary Care Provider MD Nj Zamarripa Attending Provider Nj Zamarripa Unavailable Nj Zamarripa Attending Unavailable Nj Zamarripa Admitting Unavailable [facility], Services Primary Care Unavailcarey Maxwell MD, Noms Provider Primary Care Provi pankaj DAYANA MARIN Attending Unavailable DAYANA MARIN Referring Unavailable MATTHIEU SLOAN Attending Unavailable TOSHIA SLOAN Primary Care Physician Ney AUSTIN Attending Unavailable ALEXANDREA BARGER Attending Unavailable ALEXANDREA BARGER Attending Unavailable Allergies Allergy Classification Reported Allergen(s) Allergy Type Date of Onset Reaction(s) Facility (1 source) No Known Medication Allergies; Translations: [No Known Medication Allergies] Propensity to adverse reactions (disorder) [facility] Medications Current Medications Medication Drug Class(es) [...] acid 7540 MG / polyethylene glycol 3350 87499 MG / potassium chloride 1200 MG / sodium ascorbate 08601 MG / sodium chloride 3200 MG Powder for Oral Solution) / 1 (polyethylene glycol 3350 111087 MG / potassium chloride 1000 MG / [...] 07-21-2017 03-22-2024 Chronic Disorders of lipid metabolism (5 sources) Hyperlipidemia; Translations: [Pure hypercholesterolemia, unspecified] Onset: 02-09-2024 03-22-2024 Chronic Essential hypertension (3 sources) Essential hypertension; Translations: [Essential (primary) hypertension] Onset: 02-09-2024 03-22-2024 Chronic External cause codes: Cut/resendiz (1 source) [...] Episodic Residual codes; unclassified (2 sources) Tobacco user; Translations: [Tobacco use] Onset: 02-09-2024 03-31-2024 Episodic Residual codes; unclassified (1 source) Tobacco use; Translations: [Tobacco use] Onset: 02-09-2024 Episodic Spondylosis; intervertebral disc disorders; other back [...] te Episodic/Chronic Other aftercare (1 source) Other alf (current) drug therapy; Translations: [OTH [facility] CURRENT DRUG THERAPY] Onset: 06-03-2019 Episodic Results Test Name Value Interpretation Reference Range Facility Office Visiton 04-21-2024 Follow-up visit [id number] Grazyna [address]xton [address], Jr. 1960 M Date Provider Department Center 04/21/2024 [id number]-WVGNPUALEXANDREA BARGER [facility] Arn[facility]fo [facility] Family History Problem Relation Age of Onset Other Mother Coronary artery disease Mother Family Status - Relation Status Age at Mother Level of Service:84347 [place] OFFICE/OUTPATIENT ESTABLISHED MOD MDM 30 MIN Reason for Visit and Comments: Hyperlipidemia [182] Chest Pain [210045] Shortness of Breath [321853] Normal [facility] Ambulatory Visit Summaryon 0 03-31-2024 Ambulatory Visit [...] you for choosing us for your care. [facility] 36on 03-16-2024 36 Clearance faxed to Josy Sloan's office. [facility] 36on 03-15-2024 36 Patient had stress t est and echo that you ordered for pre-op clearance. Can you please review results in media sales consultant and advise on clearance? Thank you! [facility] Office Visiton 02-09-2024 Follow-up visit [id number] Grazyna [address]xton [address], Jr. 1960 M Date Provider Department Center 02/09/2024 72147-HIIPTOALEXANDREA BARGER CARD [facility] Family History Problem Relation Age of Onset Other Mother Coronary artery disease Mother Family Status - Relation Status Age at Mother Level of Service:77887 [place] OFFICE/OUTPATIENT NEW MODERATE MDM 45 MINUTES Reason for Visit and Comments: Pre-op Exam [975928] - Needs hernia surgery with Dr. Sloan. He has no cardiac history. Says his mother had CABG in her 80's. Smokes 1 PPD. Chest Pain [164973] - Every once in awhile Shortness of Breath [777387] - Every once in awhile [facility] XR shoulder BI min 2Von 08-02 XR shoulder BI min 2V [facility] Main [place] [address] [place] [address] XRay Report Signed Patient: Shweta Braxton Rod RENTERIA MR#: [id number] : 1960 Acct:[id number] Age/Sex: 61 / M ADM Date: 08/27/22 Loc: [facility] Room: Type: [facility] Attending Dr: Nj Zamarripa MD Copies to: [...] JOINT. Impression dictated by: Hawk Yanez Jr., DTerrenceOTerrence08/27/2022 1:55 PM Dictation Location: [place] [address] Transcribed By: [facility] 08/27/22 1355 Dictated By: Hawk Yanez Jr, DO 08/27/22 1350 Signed By: 08/27/22 1355 [facility] CBC AUTO DIFFon 06-07-2019 Basophils (Bld) [#/Vol] 0.0 103/ul Normal 0.0-0.1 [facility] Comment on above: Performed By: #### CBC #### [facility] [address] [place], [place] [id number] Lokesh Chelsey Basophils/100 WBC (Bld) 0.4 % Normal 0.2-2.0 [facility] Comment on above: Performed By: #### CBC #### [facility] [address] [place], [place] [address] Lokesh Chelsey Eosinophils (Bld) [#/Vol] 0.3 103/ul Normal 0.0-0.7 [facility] Comment on above: Performed By: #### CBC #### [facility] [address] [id number] Lokesh Chelsey Eosinophils/100 WBC (Bld) 2.9 % Normal 0.9-7.0 [facility] Comment on above: Performed By: #### CBC #### [facility] [address] [place], [place] [address] Lokesh Chelsey Erythrocyte distribution width (RBC) [Ratio] 13.3 % Normal 11.0-15.0 [facility] Comment on above: Performed By: #### CBC #### [facility] [address] [place], [place] [address] Lokesh Chelsey Hematocrit (Bld) [Volume fraction] 44.5 % Normal 42.0-54.0 [facility] Comment on above: Performed By: #### CBC #### [facility] [address] [place], [place] [address] Lokesh Barbosa Hemoglobin (Bld) [Mass/Vol] 14.9 g/dL Normal 14.0-18.0 [facility] Comment on above: Performed By: #### CBC #### [facility] [address] [place], [place] [address] Lokeshbraulio Barbosa IG # 0.03 10e3/ul Normal 0.00-0.03 [facility] Comment on above: Performed By: #### CBC #### [facility] [address] [place] [address] Lokesh Barbosa IG % 0.3 % Normal 0.0-0.5 [facility] Comment on above: Performed By: #### CBC #### [facility] [address] [place] [address] Lokesh Barbosa Lymphocytes (Bld) [#/Vol] 3.0 103/ul Normal 1.2-3.8 [facility] Comment on above: Performed By: #### CBC #### [facility] [address] [place], [place] [address] Lokesh Barbosa Lymphocytes/100 WBC (Bld) 28.2 % Normal 20.5-60.0 [facility] Comment on above: Performed By: #### CBC #### [facility] [address] [place] [address] Lokesh Barbosa MANUAL DIFF REQ NO Normal [facility] Comment on above: Performed By: #### CBC #### [facility] [address] [place], [place] [address] Lokesh Barbosa MCH (RBC) [Entitic mass] 30.7 pg Normal 25.9-34.0 [facility] Comment on above: Performed By: #### CBC #### [facility] [address] [place] [address] Lokesh Barbosa MCHC (RBC) [Mass/Vol] 33.5 g/dL Normal 29.9-35.2 [facility] Comment on above: Performed By: #### CBC #### [facility] [address] [place], [place] [address] Lokesh Chelsey MCV (RBC) [Entitic vol] 91.8 fL Normal 80.0-94.0 [facility] Comment on above: Performed By: #### CBC #### [facility] [address] [place], [place] [address] Lokesh Chelsey Monocytes (Bld) [#/Vol] 0.7 103/ul Normal 0.3-0.8 [facility] Comment on above: Performed By: #### CBC #### [facility] [address] [place], [place] [address] Lokesh Chelsey Monocytes/100 WBC (Bld) 6.1 % Normal 1.7-12.0 [facility] Comment on above: Performed By: #### CBC #### [facility] [address] [place], [place] [address] Lokesh Chelsey Neutrophils (Bld) [#/Vol] 6.7 103/ul Critically high 1.4-6.5 [facility] Comment on above: Performed By: #### CBC #### [facility] [address] [place] [address] Lokesh Chelsey Neutrophils/100 WBC (Bld) 62.1 % Normal 43.0-75.0 [facility] Comment on above: Performed By: #### CBC #### [facility] [address] [place] [address] Lokesh Chelsey Platelet mean volume (Bld) [Entitic vol] 9.1 fL Critically low 9.5-13.5 [facility] Comment on above: Performed By: #### CBC #### [facility] [address] [place], [place] [address] Lokesh Chelsey Platelets (Bld) [#/Vol] 289 103/ul Normal 150-450 [facility] Comment on above: Performed By: #### CBC #### [facility] [address] [place], [place] [address] Lokesh Chelsey RBC (Bld) [#/Vol] 4.85 106/ul Normal 4.70-6.10 [facility] Comment on above: Performed By: #### CBC #### [facility] [address] [place] [address] Lokeshbraulio Barbosa WBC (Bld) [#/Vol] 10.7 103/ul Normal 4.0-11.0 [facility] Comment on above: Performed By: #### CBC #### [facility] [address] [place], [place] [address] Lokeshbraulio Barbosa LIPASEon 06-07-2019 Lipase [Catalytic activity/Vol] 137.0 U/L Normal 23.0-300.0 [facility] Comment on above: Performed By: #### JOE, CMP #### [facility] [address] [place], [place] [address] Lokesh Barbosa PROF 14(COMP METB)on 020 Albumin [Mass/Vol] 3.4 g/dL Critically low 3.5-5.0 [facility] Comment on above: Performed By: #### JOE, CMP #### [facility] [address] [place], [place] [address] Lokeshbraulio Barbosa Albumin/Globulin [Mass ratio] 1.0 {ratio} Normal [facility] Comment on above: Performed By: #### JOE, CMP #### [facility] [address] [place] [address] Lokesh Chelsey ALP [Catalytic activity/Vol] 44 U/L Normal 38-126 [facility] Comment on above: Performed By: #### JOE, CMP #### [facility] [address] [place] [address] Lokesh Chelsey ALT [Catalytic activity/Vol] 42 U/L Normal 21-72 [facility] Comment on above: Performed By: #### LIPCarey, CMP #### [facility] [address] [place], [place] [address] Lokesh Chelsey Anion gap [Moles/Vol] 13.0 mmol/L Normal [facility] Comment on above: Performed By: #### LIPCarey, CMP #### [facility] [address] [place] [address] Lokesh Chelsey AST [Catalytic activity/Vol] 23 U/L Normal 17-59 [facility] Comment on above: Performed By: #### LIPA, CMP #### [facility] [address] [address] Lokesh Chelsey Bilirubin Ql (U) 0.3 mg/dL Normal 0.2-1.3 [facility] [place] [facility] Comment on above: Performed By: #### LIPA, CMP #### [facility] [address] [address] Lokesh Chelsey Calcium [Mass/Vol] 8.8 mg/dL Normal 8.4-10.2 [facility] Comment on above: Performed By: #### LIPA, CMP #### [facility] [address] [place] [address] Lokesh Chelsey Chloride [Moles/Vol] 109 mmol/L Critically high 98-107 [facility] Comment on above: Performed By: #### LIPA, CMP #### [facility] [address] [place] [address] Lokesh Chelsey CO2 [Moles/Vol] 25.8 mmol/L Normal 22.0-30.0 [facility] [place] [facility] Comment on above: Performed By: #### LIPA, CMP #### [facility] [address] [place] [address] Lokesh Chelsey Creatinine [Mass/Vol] 0.87 mg/dL Normal 0.66-1.25 [facility] Comment on above: Performed By: #### LIPA, CMP #### [facility] [address] [place] [address] Lokesh Chelsey EGFR-AF CITIZEN [place] >60 Normal >=60 [facility] [place] [facility] Comment on above: Performed By: #### LIPA, CMP #### [facility] [address] [place] [address] Lokesh Chelsey EGFR-NON AF CITIZEN OF [place] >60 Normal >=60 [facility] Comment on above: Performed By: #### LIPA, CMP #### [facility] [address] [place] [address] Loeksh Chelsey Globulin (S) [Mass/Vol] 3.5 g/dL Normal [facility] Comment on above: Performed By: #### LIPA, CMP #### [facility] [address] [address] Lokesh Chelsey Glucose [Mass/Vol] 95 mg/dL Normal 74-106 [facility] Comment on above: Performed By: #### LIPA, CMP #### [facility] [address] [address] Lokesh Chelsey Potassium [Moles/Vol] 3.8 mmol/L Normal 3.4-5.0 [facility] Comment on above: Performed By: #### JOE, CMP #### [facility] [address] [address] Lokesh Chelsey Protein [Mass/Vol] 6.9 g/dL Normal 6.1-8.2 [facility] Comment on above: Performed By: #### JOE, CMP #### [facility] [address] [address] Lokesh Chelsey Sodium [Moles/Vol] 144 mmol/L Normal 137-145 [facility] Comment on above: Performed By: #### JOE, CMP #### [facility] [address] [address] Lokesh Chelsey Urea nitrogen [Mass/Vol] 13.0 mg/dL Normal 9.0-20.0 [facility] Comment on above: Performed By: #### JOE, CMP #### [facility] [address] [address] Lokesh Chelsey Urea nitrogen/Creatin ine [Mass ratio] 14.9 mg/mg Normal [facility] Comment on above: Performed By: #### JOE, CMP #### [facility] [address] [address] Lokesh Barbosa Althea 10-09-2017 LILIANA Telephone ([facility]) -------SHWETA BRAXTON JR ([id number]) 1960 M IPADate Time Provider Department10/09/17 AURA STATON During your visit today, we recorded the following information about you:Randal Mensah [facility] 10/09/2017 11:11 AM SignedPt calling for xray results done on 09/11/17..Aura Staton MD 10/09/2017 11:31 AM SignedLumbar x-ray demonstrates- Mild degenerative change of the lumbar spine German Looney RN 10/09/2017 11:44 AM SignedCall to the [...] MD 10/09/2017 3:45 PM SignedPT ordered please mail.Raeann Looney As of Date: 10/09/2017(No Known Allergies)Date Reviewed: [...] and withou*INVALID FOR* More...Letter [place]ama Staton M.D. [facility] [address] [place] [address]/[address] [address]Taxurq: appointments: Fax: [facility]ERAP[facility] REFERRAL FORMNAME: Shweta Braxton JRWELIA HEALTH NO: [id number]: October 09, 2017DIAGNOSIS: Lumbar spondylosisPatient's Choice for Physical Therapy Site: Outside Facility:Surgical Procedure? NoSpecial Precautions: As toleratedPATIENT REFERRED BY: Aura Staton MDTreatment : THERAPEUTIC EXERCISE, Stretching Exercises, ROM, Strengthening,Stabilizatio n: DLS, General conditioning and HEP (Physician Signature)Aura Staton M.D.[id number] NPIEncounter Number: [id number] Status:Closed by VARUN WEBSTER on 10/09/17 [facility] CNCNPATEDon 09-22-2017 CNCNPATED Education (GENBMI) SHWETA BRAXTON JR ([id number]) 1960 M IPADate Time Provider Department09/22/17 SUNNI [...] Eve Phelan MA - Fully AssessedEncounter Number: [id number] Status:Closed by SUNNI SALMERON on 09/22/17 [facility] PROGRESSon 09-22-2017 Protein mass conc HNO ID: [id number]: Sunni Reyes (Rn) Jules RNService: (none)Author Type: Registered NurseType: Progress NotesFiled: 09/22/2017 [...] By: Sunni Salmeron RN In Department: GENERALSURGERY [facility] CNOVon 2017 CNOV Office Visit (SPNMMN) SHWETA BRAXTON JR ([id number]) 1960 [facility] Provider Department09/11/17 9:40 AM AURA STATON SPNMMN During your visit today, we recorded the following information about you: Pulse Respiration Blood pressure Weight 70/minute 16/minute 137/83 104.3 kg Height 1.892 Kenton Staton MD 2017 11:17 AM SignedFormerly [facility] Care Path Radicular Leg Pain - Chronic [...] to inability to afford.Now has insurance/coverage via [facility].Denies trauma.PAIN EVALUATION 2017 Pain Score: 10 Pain [...] 2017 : 10:45 AMReferring Provider: THOMAS MATTHEWS [[id number]]Allergies As of Date: 2017(No Known Allergies)Date Reviewed: 2017Reviewed by: Eve Phelan MA - Fully AssessedReason for Visit: New Patient [172]Primary Visit Diagnosis:Lumbosacral spondylosis without myelopathy [M47.817] Other Visit Diagnoses:Chronic left-sided low back pain with sciatica, sciatica laterality unspecified [M54.40, G89.29] Leg swelling [M79.89]Order(s):XR LUMBAR LIMITED 2V AP/LAT [2806361] Order #: [id number] FUTURE CONSULT TO VASCULAR MEDICINE [180691] Order #: [id number]: 1Problem List As Of Date 2017 Noted [...] (around 12/12/2017).Follow-up and Disposition History RecordedEncounter Number: [id number] Status:Closed by AURA STATON MD on 09/11/17 Normal [facility] PROGRESSon 2017 Protein mass conc HNO ID: [id number]: Juliana Burgos RtService: (none)Author Type: (none)Type: Progress NotesFiled: 2017 11:28 AMNote Text: Radiology Service Progress NotePATIENT NAME: Shweta Braxton JRMRN: [id number] OF SERVICE: September 11, 2017TIME: 11:28 AMPATIENT IDENTITY VERIFICATION COMPLETED USING TWO (2) METHODS: Patientconfirmed name verbally and Date of .PATIENT GENDER DATA: MalePATIENT RELEVANT IMPLANT DATA REVIEWED: Not ApplicableRADIOLOGY DEPARTMENT: General X-ray: Exam(s) Completed: Spine X-Ray(s):Lumbar AP / LAT / L5-[id number] IV DATA: Not applicableSIGNED BY: Juliana Burgos RtJuly 2017 11:28 AM Normal [facility] Protein mass conc HNO ID: [id number]: Aura MendozafService: (none)Author Type: PhysicianType: Progress NotesFiled: 2017 11:17 [...] to inability to afford.Now has insurance/coverage via [facility].Denies trauma.PAIN EVALUATION 2017 Pain Score: 10 Pain [...] Braxton JRDATE: 2017 : 10:45 AM Normal [facility] XR LUMBAR 2V AP/LATon 2017 XR LUMBAR 2V AP/LAT * * *Final Report* * *DATE OF EXAM: 2017 11:28AM JIX [id number] - XR LUMBAR 2V AP/LAT / [...] degenerative change of the lumbar spine, as described.Wine Sales Representative : JA Transcribe Date/Time: 2017 12:24PDictated by : Sami CLAYTON examination was interpreted and the report reviewed and electronically signed by: ENIO MIRZA MD on 2017 1:45PM [id number] Normal [facility] PROGRESSon 08-29-2017 Protein mass conc HNO ID: [id number]: Sunni Reyes (Rn) Jules, RNService: (none)Author Type: Registered NurseType: Progress NotesFiled: 08/29/2017 11:39 AMNote Text:.Spoke to patient re: upcoming surgery- reviewed preop directions as wellas post op-patient verbalized an understanding to all instructions.Stop smoking 3 weeks before surgeryStop NSAIDS: ASA, advil, motrin, Aleve, Rx NSAIDS, combination medscontaining these.Sunni Salmeron RN Normal [facility] PROGRESSon 07-22-2017 Protein mass conc HNO ID: [id number]: Ramon LarsenRtDavid Hugginsvice: RadiologyAuthor Type: TechnicianType: Progress NotesFiled: 07/22/2017 2:58 PMNote Text: Radiology Service Progress NotePATIENT NAME: [facility]weta Braxton [facility]SN: [id number] OF SERVICE: July 22, 2017TIME: 2:57 PMPATIENT IDENTITY VERIFICATION COMPLETED USING TWO (2) METHODS: Patientconfirmed name verbally and Date of .PATIENT GENDER DATA: MalePATIENT RELEVANT IMPLANT DATA REVIEWED: YesRADIOLOGY DEPARTMENT: General X-ray: Exam(s) Completed: Chest X-RayPERIPHERAL IV DATA: Not applicableSIGNED BY: RT BrunoMatrista 2017 2:57 PM Normal [facility] XR CHEST 2V FRONTAL/LATon XR CHEST 2V [...] MIKE MD on Jul 22 2017 4:12PM [id number] Normal [facility] CNOVon 07-21-2017 CNOV Office Visit (GENBMI) SHWETA BRAXTON JR ([id number]) 1960 MDate Time Provider Department07/21/17 2:00 PM THOMAS MATTHEWSBMMaura During your visit today, we recorded the following information about you: Pulse Blood pressure Weight Height 74/minute 140/78 105.2 kg 1.858 Russell Bhatia MD 07/21/2017 3:15 PM Signed [facility] H AND PPATIENT NAME: Shweta Braxton SERVICE: [facility] surgeryPRH[facility]IAN: Puneet Epperson DOASSESSMENT/PLAN: 56 year old male presents with abdominal pain and small,reducible umbilical hernia. Hernia is symptomatic, but reducible. Pt has othermedical problems which have not been addressed and no insurance, but is coveredby [facility] through october. 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 Hernia is symptomatic, but partially reducible. Pt has othermedical problems which have not been addressed and no insurance, but is coveredby [facility] through October. 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9] Chronic left-sided low back pain with sciatica, sciatica laterality unspecified [M54.40, G89.29] Umbilical hernia without obstruction or gangrene [K42.9]Order(s):ECG COMPLETE W INTERPRETATION [ECG01] Order #: [id number] FUTURE XR CHEST 1V FRONTAL PORT [[id number]] Order #: [id number] FUTURE LUNG VOLUMES [2128312] Order #: [id number] FUTURE CBC + DIFF [SQCBCDIF] Order #: [id number] FUTURE HGB A1C [PDGBI3S] Order #: [id number] FUTURE ECHO [803209] Order #: [id number]: 1 FUTURE COMP METABOLIC PANEL [SQCMP] Order #: [id number] FUTURE CONSULT TO SPINE CENTER [19990602] Order #: [id number]: 1Problem List As Of Date 07/21/2017 Noted Resolved Obesity, Class I, BMI 30-34.9 [E66.9] INVALID FOR* Chronic obstructive pulmonary disease (HCC) [J4*INVALID FOR* Chronic left-sided low back pain with sciatica *INVALID FOR* Umbilical hernia without obstruction or gangren*INVALID FOR* Status:Closed by THOMAS MATTHEWS MD on 07/21/17 [facility] HISTORY PHYSICALon HISTORY PHYSICAL HNO ID: [id number] thor: Neli (Res) Taco: (none)Author Type: ResidentType: HANDPFiled: 07/21/2017 3:15 PMNote Text: [facility]EASE INSTITUTEGENERAL SURGERY H AND PPATIENT NAME: Shweta Braxton [facility]SN: [id number] SERVICE: [facility]BR[facility] PH[facility]: Puneet Epperson, DOASSESSMENT/PLAN: 56 year old male presents with abdominal pain and small,reducible umbilical hernia. Hernia is symptomatic, but reducible. Pt hasother medical problems which have not been addressed and no insurance, butis covered by [employer] through october. 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.PAST MEDICAL HISTORY:PAST [...] hours.Invalid input(s): AMYLASEIMAGING: *will obtain Angi Bhatia MDGenefisher-[facility] medical [facility] SurgeryMARY [facility]- [id number]/2:12 PM Normal [facility] PROGRESSon 07-21-2017 Protein mass conc HNO ID: [id number]: Thomas Duarte: (none)Author Type: PhysicianType: Progress NotesFiled: 07/21/2017 4:25 PMNote Text:PATIENT NAME: Shweta Braxton JRMRN: [id number]?HOSPITAL SERVICE: [facility]PRH[facility]: Puneet Epperson, DO??ASSESSMENT/PLAN: 56 year old male presents with abdominal pain and smallumbilical hernia. Hernia is symptomatic, but partially reducible. Pt hasother medical problems which have not been addressed and no insurance, butis covered by [employer] through October. 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.?PAST MEDICAL HISTORY:PAST [...] hernia above the umbilicus??Neli Bhatia MDGeneral SurgeryY- [id number]?07/21/20172:12 PMSTAFF NOTEAgree with assessment and planChronically incarcerated umbilical hernia, symptomaticChronic smoker, dyspnea, wheezingNo recent medical visitsWe need to assess his cardiac and lung functions before hernia surgery.Needs some blood works todayRefer to spine center for chronic severe back painRTC after the tests and optimizations to schedule the surgery.Needs to be done before OctoberHe needs to stop smoking before surgery.Thomas Matthews MD Normal [facility] Vital Signs Date Time Vital Sign Value Performing Clinician Facility 03-31-2024 14:56-0500 Diastolic blood pressure 96 mm[Hg] Ney NILL [facility] [place] 03-31-2024 14:56-0500 Mean blood pressure 113 mm[Hg] Ney NILL [facility] [place] 03-31-2024 14:56-0500 Systolic blood pressure 146 mm[Hg] Ney NILL [facility] 03-31-2024 14:21-0500 Blood Pressure Location Ney NILL [facility] 03-31-2024 14:21-0500 Diastolic blood pressure 114 mm[Hg] Ney NILL [facility] 03-31-2024 14:21-0500 Heart rate 72 /min Ney NILL [facility] 03-31-2024 14:21-0500 Respiratory rate 16 /min Ney NILL [facility] 03-31-2024 14:21-0500 Systolic blood pressure 144 mm[Hg] Ney NILL [facility] 01-21-2024 11:17-0500 Body height 188 cm [employer] Work Phone: [facility] 01-21-2024 11:17-0500 Body mass index (BMI) [Ratio] 27.6 kg/m2 [employer] Work Phone: [facility] 01-21-2024 11:17-0500 Body weight 97.52 kg Matthieu Tianjin [employer] Work Phone: [facility] 01-21-2024 11:17-0500 Diastolic blood pressure 84 mm[Hg] Matthieu Tianjin [employer] Work Phone: [facility] 01-21-2024 11:17-0500 Heart rate 89 /min Matthieu Sloan DO Work Phone: [facility] 01-21-2024 11:17-0500 Respiratory rate 16 /min Matthieu Sloan DO Work Phone: [facility] 01-21-2024 11:17-0500 SaO2% (BldA) [Mass fraction] 99 % Matthieu Sloan DO Work Phone: [facility] 01-21-2024 11:17-0500 Systolic blood pressure 132 mm[Hg] Matthieu Sloan DO Work Phone: [facility] 11-28-2022 10:45-0400 Body height 187.96 cm Nj Carlosxa Other [employer] Other Encounters Encounter Date Encounter Type Care Provider Facility Start: 04-21-2024 End: 04-21-[address] [facility] Start: 03-31-2024 End: 03-31-2024 ambulatory Ney AUSTIN Facility:[facility] Start: 03-31-2024 End: 03-31-2024 Patient encounter procedure Ney AUSTIN [facility] [place] Start: 03-16-2024 ambulatory [facility]USTIN [facility] Start: 02-09-2024 End: 02-09-[address] [facility] Start: 02-09-2024 End: 02-09-2024 Encounter for other preprocedural examination [facility] Start: 01-21-2024 End: 01-21-2024 Bamboo flowsheet Matthieu Sloan DO Work Phone: [facility] Start: 01-21-2024 End: 01-21-2024 Bamboo flowsheet Matthieu Sloan DO Work Phone: [facility] Start: 01-21-2024 End: 01-21-2024 Office outpatient new 45 minutes Matthieu Sloan DO Work Phone: [facility] Comment on above: Inguinal hernia of l eft side without obstruction or gangrene (Primary Dx); Chest pain, unspecified type Start: 01-21-2024 End: 01-21-2024 ambulatory MATTHIEU SLOAN Not Available Start: 08-27-2023 End: 08-27-2023 ambulatory DAYNAA MARIN Not Available Start: 11-28-2022 End: 11-28-2022 ambulatory Nj Olexa Other [employer] Other Start: 11-28-2022 Office outpatient vi sit 25 minutes Nj Olexa [facility] Start: 08-27-2022 Office outpatient vi sit 25 minutes Nj Olexa [facility] Start: 08-27-2022 End: 08-27-2022 ambulatory Nj Olexa Facility:[facility] Start: 08-27-2022 End: 08-27-2022 ambulatory [facility] Work Phone: [facility] Work Phone: Start: 08-27-2022 End: 08-27-2022 Patient encounter procedure Services [facility] Work Phone: [facility] Start: 08-21-2019 End: 08-21-2019 Patient encounter procedure NONE LISTED REQUEST Facility: Start: 06-07-2019 End: 06-07-2019 Patient encounter procedure NONE LISTED REQUEST Facility: Start: 06-01-2019 End: 06-02-2019 Patient encounter procedure NONE LISTED REQUEST Facility: Start: 04-30-2019 End: 04-30-2019 Patient encounter procedure MINNIE PUCKETT Facility: Start: 2017 End: 2017 Patient encounter AURA STATON [facility] Start: 2017 End: 09-12-2017 Patient encounter ARUA STATON [facility] Start: 07-22-2017 End: 07-22-2017 Patient encounter THOMAS MATTHEWS [facility] Start: 07-22-2017 End: 07-23-2017 Patient encounter THOMAS MATTHEWS [facility] Start: 07-21-2017 Patient encounter THOMAS MATTHEWS [facility] Procedures Date Procedure Procedure Detail Performing Clinician Start: 08-27-2022 Plain X-ray of bildonaldo schneiderl shoulders Services [facility] Work Phone: None (qualifier value) Greyson AUSTIN Plan of Treatment Date Care Activity Detail Author Start: 01-21-2024 End: 01-21-2024 Patient encounter procedure 01/21/2024 11:15 AM EST Office Visit GINNA BARCENAS [address] [place] [address] Matthieu Sloan DO [address] [place] [address] Arrived NOMEric BARCENAS Comment on above: Arrived Start: 11-02-2023 Influenza vaccination Influenza Vacc ine (#1) [facility] Start: 1960 Screening for malign ant neoplasm of colon [facility] Payers Date Payer Category Payer Self-pay [id number] 2021 Private Health Insurance [employer]ICA[employer] [id number] 2021 Private Health Insurance [id number] 1960 Unknown [id number] 1959 Unknown [id number] 593 1959 Unknown [id number]. 593 1959 Unknown [id number] [id number]. 593 1959 Unknown [id number]. 9 1959 Unknown [id number]. 1259 1959 Unknown [id number] [id number]. 9 1959 Unknown [id number] [id number]. 727 1959 Unknown [id number] Unknown [id number] 531 Social History Date Type Detail Facility Start: 06-07-2019 Tobacco smoking status NHIS Smoker (finding) [facility] Start: 1960 Sex Assigned At Male F [facility] Start: 08-27-2023 End: 01-21-2024 Sex Assigned At [facility] Start: 08-26-1978 Tobacco smoking status NVIS Smokes tobacco daily [facility] Start: 08-26-1978 History of tobacco use Cigarette Smoker [facility] Start: 08-27-2023 End: 01-21-2024 Cigarettes smoked current (pack per day) - Reported 1 [facility] Start: 08-27-2023 Tobacco use and exposure Smokeless tobacco non-user [facility] Start: 08-27-2023 End: 01-21-2024 Alcoholic beverage intake Defer [facility] Start: 1960 Sex assigned at Not on file [facility] Start: 03-31-2024 Tobacco smoking status Heavy tobacco smoker (finding) [facility] [place] Tobacco smoking status Never [facility] [place] NEGATED: Highlighted rowStart: NINF History of tobacco use Passive smoker [facility] Functional Status Date Assessment Result Facility 03-31-2024 Functional Status N/A Tom[facility]inson[facility]Rober[facility] [place] Clinical Notes 08-27-2022 to 04-21-2024 Matthieu Sloan - 01/21/2024 11:15 AM EST Note Date & Type Note Facility 04-21-2024 Note [place] [facility] Note Reason for cardiology visit: Follow-up HPI: 04/21/2024 The patient is here today for follow-up visit. He reports that he has been doing well. Denies any chest pain at rest or with exertion. He reports occasional dyspnea on exertion. Denies orthopnea or paroxysmal nocturnal dyspnea or dizziness or palpitations. Denies legs edema or discomfort on exertion He continues to smoke 1 pack/day 02/09/2024 Shweta Josy Braxton Jr. is a 63 y.o. male who used to have hypertension and hyperlipidemia however he did not see a PCP for many years and he stopped the medications on his own. He denies any prior cardiac history. He is a long-term smoker He states that he is physically very active. He reports occasional chest discomfo Rt he described as in the remittent chest [...] she was in her 80s Cardiology ROS: All systems were reviewed and they were negative except for the positive findings noted above in the history Past Medical History He has no past [...] on file. Last Recorded Vitals Visit Vitals Ht 1.88 m (6' 2 ) BMI 27.22 kg/m??? Smoking Status Every Day [...] PSYCH: appropriate mood, affect, and judgement. Labs: 03/08/2024 White blood count 9.4, hemoglobin 14.8, hematocrit 45, platelets 277 Sodium 140, potassium 4.1, glucose 85, BUN 18, creatinine 1.2, GFR above 60, calcium 8.6 AST 22, ALT 31 Triglyceride 83, cholesterol 216, HDL 56, LDL 144 TSH 1.544 Last Images: EKG 02/09/2024 showed normal sinus rhythm, normal EKG Echo 03/08/2024 at [facility] Treadmill nuclear stress test 03/08/2024 at [facility] Nuclear portion Assessment and Plan: Preop cardiac clearance for left inguinal hernia repair Patient echo and stress test were normal. The patient is cleared to proceed with surgery from cardiac point of view with necessary anesthesia. He is considered to be at low risk for perioperative cardiac events. A letter in that regard was sent to his bilingual secretary and actually he was supposed to have his surgery today but it was postponed due to uncontrolled hypertension Dyspnea on exertion Echo showed normal left ventricle systolic and diastolic function without valvular heart disease I think that he has significant underlying COPD/chronic bronchitis in addition to uncontrolled hypertension Chest pain He had stress test which was normal without evidence of ischemia No recurrence History of hypertension, not on any medication History of hyperlipidemia, LDL 144 but good HDL 56 on latest blood test Tobacco abuse, 1 pack/day for 50 years Varicose veins bilateral Overweight, BMI 28.12 kg/m??? Plan: Start losartan 50 mg p.o. daily for blood pressure control. He was advised to follow low-salt diet Check BMP in 1 week Patient to come back in about 2 weeks to the office to check his blood pressure. He does not have blood pressure monitor and he cannot afford one Start Crestor 20 mg daily in addition to low-fat diet Recheck lipids and ALT AST in 2 months. The goal is to keep LDL cholesterol 100 or below The patient was counseled regarding smoking cessation. He was highly advised regarding the importance of smoking cessation to improve his long-term prognosis and different options were discussed. He wants to cut down gradually Referral to pulmonary to evaluate and treat shortness of (more content not included)... [facility] 04-21-2024 Note Review of Systems Cardiovascular: Positive for leg swelling and palpitations. Pt wants bp controlled so he can have hernia sx. [facility] 04-01-2024 Note General Surgery Offi ce/Clinic Note [...] ECHO and stress test; has f/u with Rare/Endangered Species Specialist next week; left hernia present for several [...] Substance (more content not included)... [facility] Comment on above: Result Comment: Elec tronically Signed By: NORMAN RODRIGUEZ, Ney Munoz.sim\Date and Time Signed: 04/01/24 16:07 EST 02-09-2024 Note [place] [facility] Note Reason for cardiology consult: Preop cardiac evaluation for left inguinal hernia repair Chief Complaint: Dyspnea on exertion, occasional chest pain HPI: Shweta Braxton is a 63 y.o. male who used [...] 2-month or sooner if needed Alexandrea Barger MD,[facility] 01-21-2024 History of Present illness Narrative [...] morning. He was encouraged to see a bilingual secretary and referral given. He was also instructed that if the pain continues to happen he should go to the ER to have his heart evaluated. Denies any abdominal pain. Denies fevers, chills, or sweats. Denies nausea or vomiting. Discussed surgery and risks for procedure. Patient would like to proceed with surgery. Had detailed discussion that he must see a PCP and bilingual secretary and obtain surgical risk stratification prior to [...] will need to see a PCP and bilingual secretary for his intermittent chest pain. Will schedule at patient's earliest convenience after having cardiac clearance/work up. Encouraged to stop smoking. Thank you, Travis Sloan DO documented in this encounter [facility] 11-28-2022 Evaluation note Encounter Date Diagnosis Assessment [...] pain of left shoulder (ICD-10 - M25.512) [employer] Other 06-27-2023 Evaluation note* Encounter Date Diagnosis [...] pain of left shoulder (ICD-10 - M25.512) [employer] Other Evaluation + Plan note No data available for this section [facility] [place] Evaluation noteNo assessment information available [facility] Work Phone: Evaluation note* Diagnosis Inguinal hernia of left side without obstruction or gangrene- Primary Chest pain, unspecified type documented in this encounter [facility] N[facility]ative - Reported* Type Description Date Medical History peripheral vascular disease Medical History high blood pressure Medical History high cholesterol [employer] Other Hospital Discharge instructions No data available for this section [facility] [place] Progress note No data available for this section [facility] [place] Summary Purpose Family History No Family History Records FoundNo Family History Records FoundNo Family History Records FoundNo Family History Records Found No data available for this section No Family History Records FoundNo Family History Records Found Advance Directives No Advanced Directives Records Found Advance Directive Response Recorded Date/ Time Advance Directives No May 05 18 7:08am Additional Source Comments (unrecognized sect ion and content) No Status Records FoundNo Status Records FoundNo Status Records FoundNo Status Records FoundNo Status Records FoundNo Status Records Found INFORMATION SOURCE (unrecogn ized section and content) DATE CREATED AUTHOR 10/14/2017 [facility] DATE CREATED AUTHOR AUTHOR'S ORGANIZ ATION 09/18/2019 [facility] [place] [facility] DATE CREATED AUTHOR AUTHOR'S ORGANIZ ATION 09/02/2022 [facility] DATE CREATED AUTHOR AUTHOR'S ORGANIZ ATION 01/24/2024 [facility] EPIC DATE CREATED AUTHOR AUTHOR'S ORGANIZ ATION 04/02/2024 [facility] DATE CREATED AUTHOR AUTHOR'S ORGANIZ ATION 05/03/2024 [facility] Care Teams (unrecognized sec tion and content) Team Status: Active Member Role Status Dates Services Family [facility] Primary Care Provider Active Team Status: Inactive Member Role Status Dates Services Family [facility] Primary Care Provider Active Nj Zamarripa MD Attending Provider Active Senior National Account Manager Relationship Specialty Start Date End Date Unallocated, Ginna Cantrell MD [address] [place] [address] PCP - General Family Medicine 08/27/23 Senior National Account Manager Relationship Specialty Start Date End Date Unallocated, Ginna Cantrell MD [address] [place] [address] PCP - General Family Medicine 08/27/23 Goals [...] BE BASED ON THE PRIMARY CLINICAL RECORDS. [facility]. provides no warranty or guarantee of the accuracy or completeness of information in this document.
--- OUTSIDE RECORDS SUMMARY | 2024-08-07 08:40 | XMS_ITS | Clinical Summary ---
Author Organization [facility] Address [address] [facility] [place] [address] Care Team Providers Care Film Reproducer Name Role Phone Unallocated, [facility] Provider Primary Care Provi pankaj Allergies No known active allergies Medications meloxicam (Mobic) 15 MG tablet Take 15 mg by mouth Daily 01/12/2024 Active Active Problems No known active problems Encounters Date Type Department Care Team Description 05/18/2024 Orders Only [facility] [address] [place] [address] Charlie Sloan DO Inguinal hernia of left side without obstruction or gangrene; Chest pain, unspecified type from Last 3 Months Social History Tobacco Use Types Packs/Day Years Used Date Smoking Tobacco: Every Day Cigarettes 1 45.9 Started: 08/26/1978 Passive Smoke Exposure: Never Smokeless Tobacco: Never Tobacco Cessation:Ready to Q uit: Not Asked; Counseling Given: Yes Alcohol Use Standard Drinks/Week Comments Defer 0 (1 standard drink = 0.6 oz pur e alcohol) Sex and Gender Information Value Date Recorded Sex Assigned at Not on file Legal Sex Male 10:12 PM EDT Gender Identity Not on file Sexual Orientation Not on file Last Filed Vital Signs Vital Sign Reading Time Taken Comments Blood Pressure 132/84 01/21/2024 11:17 AM EST Pulse 89 01/21/2024 11:17 AM EST Temperature - - Respiratory Rate 16 01/21/2024 11:17 AM EST Oxygen Saturation 99% 01/21/2024 11:17 AM EST Inhaled Oxygen Concentration - - Weight 97.5 kg (215 lb) 01/21/2024 11:17 AM EST Height 188 cm (6' 2 ) 01/21/2024 11:17 AM EST Body Mass Index 27.6 01/21/2024 11:17 AM EST Plan of Treatment Health Maintenance Due Date Last Done Comments CT Colonography 1960 Colonoscopy 1960 Colorectal Cancer Screening 1960 FIT-DNA 1960 FIT 1960 FOBT 1960 Sigmoidoscopy 1960 Influenza Vaccine (Season Ended) 2024 Procedures Procedure Name Priority Date/Time Associated Diagnosis Comments AMB REFERRAL TO CARDIOLOGY Routine 05/18/2024 2:53 PM EDT Chest pain, unspecified type from Last 3 Months Results * Ambulatory referral to Cardiology (05/18/2024 2:53 PM EDT) Charlie Sloan DO OUTPATIENT REFERRAL ORDERABLES F inal Result from Last 3 Months Insurance [id number] MEDICAID Care Teams Film Reproducer Relationship Specialty Start Date End Date Unallocated, [facility] MD Óscar [address] [place] [address] PCP - General Family Medicine 08/27/23
[2024-08-07 09:59] LABS: Alanine Aminotransferase 30 U/L (16-63); Anion Gap 12.6; Aspartate Amino Transferase 28 U/L (15-37); Calcium 8.7 mg/dL (8.5-10.1); Carbon Dioxide 29.6 mmol/L (21.0-32.0); Chloride 104 mmol/L (98-107); Estimated GFR (African America >60 (>=60 mL/min/1.73m^2); Estimated GFR (Non-African Ame >60 (>=60 mL/min/1.73m^2); Glucose 87 mg/dL (74-106); Potassium 4.2 mmol/L (3.5-5.1); Sodium 142 mmol/L (136-145)
[2024-08-07 11:47] LABS: Chol HDL Ratio 2.2; Cholesterol 125 mg/dL (<=200); HDL Cholesterol 56 mg/dL (40-60); LDL Cholesterol Calculated 56.8 mg/dL; Triglycerides 61 mg/dL (<=150); VLDL CHOLESTEROL 12.2 mg/dL
== END 2024-08-07 08:35 | disposition home or self-care (01) ==
LOC: LAB 08:37
PROVIDERS: Visit Provider Internal Medicine Cardiovascular Disease
DX: E78.00 Pure hypercholesterolemia, unspecified (principal); I10 Essential (primary) hypertension
CPT/HCPCS: 36415; 80048; 80061; 84450; 84460

== ENCOUNTER 2025-02-26 04:25 | Emergency (ER) | payer OTHER, SELFPAY ==
[2025-02-26] VITALS (27 sets, daily range): BP systolic 134–197; BP diastolic 84–127; PULSE 65–100; TEMP 36.7; O2SAT 96–97; BMI 27.5
--- NOTE | 2025-02-26 04:50 | PC.NURSE ---
Faint exp. wheezes
--- NOTE | 2025-02-26 04:57 | ECG_ITS ---
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 Measurements Intervals [place] Rate: 86 P: 50 [place]: 188 QRS: 34 QRSD: 88 T: 69 QT: 382 QTc: 425 Interpretive Statements 1100 Sinus rhythm 2420 RSR (QR) in lead V1/V2, consistent with right ventricular conduction delay 9130 borderline ECG No previous ECG available for comparison Electronically Signed On 02-26-2025 7:28:36 EST by GA MÉNDEZ M.D.
[2025-02-26 05:01] LABS: SARS-CoV-2 Ag NEGATIVE (NEGATIVE)
[2025-02-26] MEDS: LABETALOL HCL 20 MG/4 ML SYRINGE IVP (05:32)
[2025-02-26] MEDS: IBUPROFEN 400 MG TABLET 800 MG PO (05:32)
[2025-02-26] MEDS: ACETAMINOPHEN 500 MG TABLET 1000 MG PO (05:32)
[2025-02-26 05:33] LABS: Anion Gap 11.9; Blood Urea Nitrogen 7.0 mg/dL (7.0-18.0); Calcium 9.1 mg/dL (8.5-10.1); Carbon Dioxide 26.9 mmol/L (21.0-32.0); Chloride 102 mmol/L (98-107); Estimated GFR (African America >60 (>=60 mL/min/1.73m^2); Estimated GFR (Non-African Ame >60 (>=60 mL/min/1.73m^2); Glucose 117 mg/dL (74-106); Potassium 3.8 mmol/L (3.5-5.1); Sodium 137 mmol/L (136-145)
--- NOTE | 2025-02-26 05:34 | ED.GENADUL1 ---
HPI HPI - General Adult General Chief complaint: Headache Stated complaint: abd pain and headache Time Seen by Provider: 02/26/25 04:49 Source: patient Mode of arrival: walk-in History of Present Illness HPI narrative: cc - headache Pt developed a headache yesterday and it has steadily worsened since onset. Nothing taken for the pain at home. No cough, cold or flu-like symptoms except some back achiness . He has a hernia - and is in the process of seeing Dr Purvis to get this addressed - but wanted to mention it . No vision changes, numbness, tingling or weakness. His BP is very elevated today. He previously saw cardiology for HTN - no recent change in meds Related Data Home Medications ?Medication ?Instructions ?Recorded ?Confirmed losartan 50 mg tablet 50 mg PO DAILY 02/26/25 02/26/25 Allergies Allergy/AdvReac Type Severity Reaction Status Date / Time No Known Drug Allergies Allergy Verified 02/26/25 04:32 Opioid HPI Opioid Management Most Recent Opioid Data: Last Pain Scale 10 Today, 05:32 Last MAR Pain Assessment Today, 05:32 PFS PFS Medical History (Updated 02/26/25 @ 05:39 by Demetrio Trent) COPD (chronic obstructive pulmonary disease) ?J44.9 - Chronic obstructive pulmonary disease, unspecified (ICD-10) Left inguinal hernia ?K40.90 - Unilateral inguinal hernia, without obstruction or gangrene, not specified as recurrent (ICD-10) Hypertension ?I10 - Essential (primary) hypertension (ICD-10) POWER (dyspnea on exertion) ?R06.09 - Other forms of dyspnea (ICD-10) Chest pain ?R07.9 - Chest pain, unspecified (ICD-10) Surgical History (Updated 04/16/24 @ 13:52 by Maria Isabel Ramey NP) H/O hemorrhoidectomy ?Z98.890 - Other specified postprocedural states (ICD-10) Family History (Updated 04/16/24 @ 13:54 by Maria Isabel Ramey NP) Other Family history of heart disease Social History (Updated 04/16/24 @ 13:51 by Maria Isabel Ramey NP) Within the past year, how often did you have a drink containing alcohol: never Score interpretation: A score less than 4 is consistent with normal alcohol consumption. Smoking status: Current every day smoker What tobacco products do you use: cigarettes Packs per day: 1 Years smoked: 55 Smoking pack-years: 55.00 Non-prescribed substance use: sedatives/tranquilizers and opiods/painkillers Highest level of school completed/degree received: high school graduate Little interest or pleasure in doing things: not at all Feeling down, depressed, or hopeless: not at all Exam Narrative Exam Narrative: Nurses notes and vital signs reviewed and patient is not hypoxic. afebrile General: Well-appearing and in no apparent distress. Skin: Warm, dry, no pallor noted. Head: Normocephalic, atraumatic. Neck: Supple, non-tender. No cervical lymphadenopathy. No meningismus. Eye: Pupils are equal, round and EOMI. No scleral icterus. Ears, Nose, Mouth, and Throat: Oral mucosa is moist Cardiovascular: Regular Rate and Rhythm without murmur, gallop or rub. Respiratory: No accessory muscle use or respiratory distress. Lungs are clear to auscultation, no wheezing, rales or rhonchi Musculoskeletal: normal ROM, no calf or popliteal tenderness, no lower extremity edema/swelling Neurological: A&O x4. No cranial nerve dysfunction observed. No truncal ataxia. Moves all extremities. Sensation intact. Psychiatric: Cooperative and interactive. Normal mood and affect. Constitutional Vital Signs, click to edit/add: Last Vital Signs Temp 98.1 F 02/26/25 04:33 Pulse 69 02/26/25 07:00 Resp 15 02/26/25 07:00 BP 159/96 H 02/26/25 07:00 Pulse Ox 96 02/26/25 04:34 O2 Del Method Room Air 02/26/25 04:33 Course Vital Signs Vital signs: Vital Signs Temperature 98.1 F 02/26/25 04:33 Pulse Rate 100 H 02/26/25 04:33 Respiratory Rate 20 02/26/25 04:33 Pulse Oximetry 97 02/26/25 04:33 Oxygen Delivery Method Room Air 02/26/25 04:33 Temperature 98.1 F 02/26/25 04:33 Pulse Rate 69 02/26/25 07:00 Respiratory Rate 15 02/26/25 07:00 Blood Pressure 159/96 H 02/26/25 07:00 Pulse Oximetry 96 02/26/25 04:34 Oxygen Delivery Method Room Air 02/26/25 04:33 Medical Decision Making MDM Narrative Medical decision making narrative: Patient's blood pressure is markedly elevated at 190/112. Peripheral IV was ordered to be established and blood drawn and sent for testing. He was ordered to have an EKG. He was ordered to receive IV labetalol 20 mg for treatment of his hypertension. Additionally, the triage nurse obtained swabs for COVID and influenza at intake. He received oral Tylenol and oral Motrin for pain. BMP is normal. EKG was unremarkable. Swabs for COVID and influenza were negative. BP did not improve after 20mg Labetalol so he was ordered to receive 40mg Labetalol IVP. Pt signed out to Dr Nunez to re-assess and determine need for any additional treatment and disposition. Lab Data Lab results reviewed: Yes I reviewed the patient's lab results Labs: Lab Results 02/26/25 02/26/25 Range/Units 04:40 05:13 Sodium 137 (136-145) mmol/L Potassium 3.8 (3.5-5.1) mmol/L Chloride 102 (98-107) mmol/L Carbon Dioxide 26.9 (21.0-32.0) mmol/L Anion Gap 11.9 BUN 7.0 (7.0-18.0) mg/dL Creatinine 0.74 (0.70-1.30) mg/dL Est GFR ( Amer) >60 (>=60 mL/min/1.73m^2) Est GFR (Non-Af Amer) >60 (>=60 mL/min/1.73m^2) BUN/Creatinine Ratio 9.5 Glucose 117 H (74-106) mg/dL Calcium 9.1 (8.5-10.1) mg/dL Influenza Type A Ag Negative Influenza Type B Ag Negative SARS-CoV-2 Ag (CV2AG) Negative (NEGATIVE) ECG Data Attestation: I personally reviewed and interpreted this ECG as follows: Interpretation: EKG interpretation:Emergency Department physician interpretation. Normal sinus rhythm at 86bpm. Normal axis, normal intervals and no ST segment elevation or depression. Discharge Plan Discharge Patient Disposition: Still a Patient
--- OUTSIDE RECORDS SUMMARY | 2025-02-26 05:39 | XMS_ITS | Clinical Summary ---
Author Organization [facility] Address [address] [place] [address] Care Team Providers Care Admissions Recruiter Name Role Phone Unallocated, Noms Provider Primary Care Provi pankaj Allergies No known active allergies Medications MedicationSigDispense QuantityRefillsLast FilledStart DateEnd DateStatus meloxicam (Mobic) 15 MG tablet Take 15 mg by mouth Daily01/12/2024ctive Active Problems No known active problems Social History Tobacco UseTypesPacks/DayYears UsedDateSmoking Tobacco: Every OeuIbwebycxxx414.5 Started: 08/26/1978Passive Smoke Exposure: NeverSmokeless Tobacco: Never Tobacco Cessation:Ready to Q uit: Not Asked; Counseling Given: Yes Alcohol UseStandard Drinks/WeekCommentsDefer0 (1 standard drink = 0.6 oz pure alcohol)Sex and Gender InformationValueDate RecordedSex Assigned at BirthNot on fileLegal BixXeuw1605/15/2022 10:12 PM EDTGender IdentityNot on fileSexual OrientationNot on file Last Filed Vital Signs Vital SignReadingTime TakenCommentsBlood Yvyikkgf506/8401/21/2024 11:17 AM EST Mnmha603001/21/2024 11:17 AM ESTTemperature--Respiratory Ewbn410903/22/2023 11:17 AM ESTOxygen Vjmontbuoo52%01/21/2024 11:17 AM ESTInhaled Oxygen Concentration-- Xufzmt47.5 kg (215 lb)01/21/2024 11:17 AM VZAJrtcoq894 cm (6' 2 )01/21/2024 11:17 AM ESTBody Mass Index27.6103/22/2023 11:17 AM EST Plan of Treatment Health MaintenanceDue DateLast DoneCommentsCT Jsaeyhmuvyww59/11/1960Colonoscopy 1959Colorectal Cancer Sqecdlywc68/11/1960FIT-DNA1959FIT1959 FOBT1959 4295Nkvcuytncqopx23/11/1960Pneumococcal Vaccine: 65+ Years (1 of 2 - PCV)09/10/1978Influenza Vaccine (#1)2024 Insurance * Guarantor: Omari Cisse DAccount TypeRelation to PatientDate of BirthPhone Billing AddressPersonal/EfkkfoRnlv42/11/1961 [address] [place] [address] Care Teams Team MemberRelationshipSpecialtyStart DateEnd Date Unallocated, Noms MD Óscar [address] [place], [place] [id number] PCP - GeneralFamily Medicine08/27/23
--- OUTSIDE RECORDS SUMMARY | 2025-02-26 05:39 | XMS_ITS | CCD ---
Author Organization [facility] Care Team Providers Care Attendant Arcade Name Role Phone AMINIAN, ALI Unavailable Unavailable [...] LONG Attending Unavailable DAYNA LONG Consulting Unavailable [facility], Services Primary Care Provider MD Nj Zamarripa Attending Provider Nj Zamarripa Unavailable Nj Zamarripa Attending Unavailable Nj Zamarripa Admitting Unavailable [facility], Services Primary Care Unavailcarey Landrumlocristine RODRIGUEZ, Noms Provider Primary Care Provi pankaj DAYANA MARIN Attending Unavailable DAYANA MARIN Referring Unavailable MATTHIEU SLOAN Attending Unavailable TOSHIA SLOAN Primary Care Physician [phone] Ney AUSTIN Attending Unavailable ALEXANDREA BARGER Attending Unavailable ALEXANDREA BARGER Attending Unavailable ALEXANDREA BARGER Attending Unavailable Allergies Allergy ClassificationReported Allergen(s)Allergy TypeDate of OnsetReaction(s) Facility (1 source)No Known Medication Allergies; Translations: [No Known Medication Allergies]Propensity to adverse reactions (disorder)[facility] Repository Medications Current Medications MedicationDrug Class(es)DatesSig (Normalized)Sig (Original)Compression stockings, 30-40mmHg, thigh 30-40mmHg (2 sources)Compression stockings, 30-40mmHg, thigh 30-40mmHg externally daily as directed for 3 months Activecyclobenzaprine hydrochloride 10 mg oral tablet (1 source)Muscle RelaxantStart: 85-46-3767rmvh 10 mg by mouth three times daily Cyclobenzaprine Active 10 MG PO Three times daily April 22, 2019 1:00am ibuprofen 800 mg oral tablet (3 sources)Nonsteroidal Anti-inflammatory DrugStart: 14-18-1936sxmk 800 mg by mouth three times dailyIbuprofen Active 800 MG PO Three times daily March 24, 2019 1:00amtake 1 tablet by mouth every eight hoursIbuprofen 800 MG take 1 tablet by mouth every 8 hours if needed Oral for 8 Not-Takingmeloxicam 15 mg oral tablet (2 sources)Nonsteroidal Anti-inflammatory DrugStart: 46-18-6830othk 1 tablet by mouth once dailymeloxicam (Mobic) 15 MG tablet Take 15 mg by mouth Daily 01/12/2024 Activenaproxen 500 mg oral tablet (1 source)Nonsteroidal Anti-inflammatory DrugStart: 91-50-7327vwwi 500 mg by mouth twice dailyNaproxen Active 500 MG PO Twice daily April 22, 2019 1:00am Completed/Discontinued Medications MedicationDrug Class(es)DatesSig (Normalized)Sig (Original){1 (ascorbic acid 7540 MG / polyethylene glycol 3350 58238 MG / potassium chloride 1200 MG / sodiumascorbate 90343 MG / sodium chloride 3200 MG Powder for Oral Solution) / 1 (polyethylene glycol 3350 466674 MG / potassium chloride 1000 MG / sodium chloride 2000 MG / sodium sulfate 9000 MG Powder for Oral Solution) } Pack [Plenvu] (2 sources)Osmotic Laxative, Vitamin CStart: 21-96-4904Dxhygc 140 GM dose 1 pouch at 4pm, dose 2 pouch A & B at 11pm Orally BID for 1 days Jan, Not-TakingStart: 58-64-8761Lvudxk 140 GM dose 1 pouch at 4pm, dose 2 pouch A & B at 11pm Orally BID for 1 days Jan, ActiveDiclofenac (1 source)Nonsteroidal Anti-inflammatory DrugStart: 04-22-2019 End: 29-67-1797vttoz 2 g topically four times dailyDiclofenac Sodium Discontinued 2 GM TOPICAL Four times daily 100 April 22, 2019 1:00am June 07, 2019 10:54am apply to single elbow, wrist or hand; for hand includes palm/fingers/back of handsimethicone 80 mg oral capsule (2 sources)Start: 46-39-0940Eqwvplyenrc 80 MG 3 tablets Orally the morning of scope for 1 days Jan, Not-Takingsimvastatin 20 mg oral tablet (2 sources)HMG-CoA Reductase Inhibitortake 1 tablet by mouth every twenty-four hoursSimvastatin 20 MG 1 tablet in the evening Orally Once a day Not-Taking triamcinolone acetonide 40 mg/ml injectable suspension (7 sources)CorticosteroidStart: 64-38-7955Cukxjhm-40 Nov, 40 mgStart: 95-44-0833Meqwkdj -40 mg Jan, 40 mgStart: 09-97-4313Ryrlwfj -40 mg Oct, 40 mg Problems Active Problems Problem ClassificationProblemDateDocumented DateEpisodic/ChronicAbdominal pain (4 sources)Left lower quadrant pain; Translations: [Left inguinal pain]Onset: 909864-39-1834VlpbypejDotiahm obstructive pulmonary disease and bronchiectasis (2 sources)Chronic obstructive pulmonary disease, unspecified; Translations: [Chronic obstructive lung disease]Onset: 018162-87-5869JwlcnkiAluhdblol of lipid metabolism (5 sources)Hyperlipidemia; Translations: [Pure hypercholesterolemia, unspecified]Onset: 346158-94-8350QekqbieJhlqgqttz hypertension (3 sources)Essential hypertension; Translations: [Essential (primary) hypertension]Onset: 489467-87-2680YpegclkTlhgupdz cause codes: Cut/resendiz (1 source)Contact with knife, initial encounter; Translations: [CONTACT WITH KNIFE INITIAL ENC]Onset: 39-58-4428Kqdaoqao cause codes: Natural/environment (1 source)Other and unspecified overexertion or strenuous movements or postures, initial encounter; Translations: [OTH AND UNS OVREXRT/STRN MVMT/POS INT]Onset: 75-52-1764Zcczxudreqeon and screening for infectious disease (1 source)Encounter for immunization; Translations: [ENCOUNTER FOR IMMUNIZATION] Onset: 00-73-4363HmubzozbIbzlpmu examination/evaluation (1 source)Encounter for other preprocedural examination; Translations: [Encounter for other preprocedural examination]Onset: 41-13-6886AmvkkyisBopy wounds of extremities (4 sources)Laceration without foreign body of left index finger without damage to nail, initial encounter; Translations: [LAC W/O FB LT IF W/O DMG NAIL INIT] Onset: 27-79-0704ZpxcxrdyCoynlwedbfwcjl (4 sources)Osteoarthritis of joint of right shoulder region; Translations: [Primary osteoarthritis, right shoulder]ChronicOther lower respiratory disease (2 sources)Other forms of dyspnea; Translations: [Other forms of dyspnea]Onset: 23-56-5715DykbmfkkTkexl nervous system disorders (1 source)Other chronic pain; Translations: [Other chronic pain]Onset: 74-87-6172EkcsckjSshls non-traumatic joint disorders (2 sources)Rotator cuff arthropathy of right shoulder; Translations: [Other specific arthropathies, not elsewhere classified, right shoulder]ChronicOther non-traumatic joint disorders (2 sources)Other specific arthropathies, not elsewhere classified, right shoulderChronicOther non-traumatic joint disorders (2 sources)Pain in right shoulderEpisodicOther non-traumatic joint disorders (3 sources)Pain in left shoulder; Translations: [Pain in left shoulder]Onset: 64-33-5507ZfufldytRjvnv nutritional; endocrine; and metabolic disorders (1 source)Stguqpjybc97-79-6932FhdncgtwRfpij nutritional; endocrine; and metabolic disorders (1 source)Overweight in adulthood with body mass index of 25 or more but less than 7608-84-5323MphjqhdtPmevdhtz codes; unclassified (2 sources)Tobacco user; Translations: [Tobacco use]Onset: 43-49-662480473890-80-5598 EpisodicSpondylosis; intervertebral disc disorders; other back problems (1 source)Lumbago with sciatica, unspecified side; Translations: [Lumbago with sciatica, unspecified side]Onset: 89-40-4070OhlqpcbsCvlaumj and strains (5 sources)Strain of muscle, fascia and tendon of abdomen, initial encounter; Translations: [Sprain of shoulder]Onset: 767937-86-0122SirzzfxxDwzctujnc- related disorders (3 sources)Nicotine dependence, cigarettes, uncomplicated; Translations: [Smoker]Onset: 88-30-9670XibmpseCtdwgyhrjagd (1 source)Pain in right shoulder; Translations: [Pain in right shoulder]Onset: 08-27-2022 Past or Other Problems Problem ClassificationProblemDateDocumented DateEpisodic/ChronicAbdominal hernia (14 sources)Umbilical hernia without obstruction or gangrene; Translations: [Unilateral inguinal hernia, with obstruction, without gangrene, not specified as recurrent]Onset: 321319-32-0949GadnwxtiZxpwnegjarw chest pain (8 sources)Chest pain; Translations: [Chest pain, unspecified]Onset: 02-09-2024 70-81-7996VyfxystnRustx aftercare (1 source)Other jail (current) drug therapy; Translations: [OTH DETENTION CURRENT DRUG THERAPY]Onset: 93-92-1494VtjsofzrHiulyqjc codes; unclassified (1 source)Tobacco use; Translations: [Tobacco use]Onset: 28-17-2397Qfyumvwp Results Test NameValueInterpretationReference RangeFacilityOffice Visiton 08-09-2024 Follow-up [id number] Shweta Braxton Jr. 1960 Date Provider Department Center 08/09/2024 ALEXANDREA ROSAS [facility] Family History Problem Relation Age of Onset Other Mother Coronary artery disease Mother Family Status - Relation Status Age at Mother Father Alive Level of Service:31140 OR OFFICE/OUTPATIENT ESTABLISHED MOD MDM 30 MIN Reason for Visit and Comments: Hypertension [695877] Hyperlipidemia [182] 3 month follow up [Other] patient here to be cleared for surgery, hernia repair [Other] -[facility] CampusOrders Onlyon 85-75-7523Eeddwq [id number] Shweta Braxton Jr. 1960 M Date Provider Department Center 08/09/2024 CARLTON ROSASSUSANNAH MEJIA SILAS [facility] Family History Problem Relation Age of Onset Other Mother Coronary artery disease Mother Family Status - Relation Status Age at Mother Father AliveNormalUniHocking Valley Community HospitalOffice Visiton 04-21-2024 Follow-up [id number] Shweta Braxton Jr. 1960 M Date Provider Department Center 04/21/2024 ALEXANDREA ROSAS [facility] Family History Problem Relation Age of Onset Other Mother Coronary artery disease Mother Family Status - Relation Status Age at Mother Level of Service:26862 OR OFFICE/OUTPATIENT ESTABLISHED MOD MDM 30 MIN Reason for Visit and Comments: Hyperlipidemia [182] Chest Pain [683097] Shortness of Breath [588836][facility] CampusAmbulatory Visit Summaryon 95-74-7341Hdpambwlog Visit SummaryAmbulatory Visit Summary SHWETA BRAXTON :1960 Visit Date:03/31/2024 [...] you for choosing us for your care. [facility]36on 24-07-603658Vnsshlhyp faxed to Dr. Sloan's office.[facility]36on 03-15-2024 36Patient had stress test and echo that you ordered for pre-op clearance. Can you please review results in manager media relations and advise on clearance? Thank you![facility] HospitalOffice Visiton 11-19-4483Phkfty-up visit [id number] Shweta Braxton Jr. 1960 M Date Provider Department Center 02/09/2024 70785-UPWKOKALEXANDREA BARGER SILAS Richards Family History Problem Relation Age of Onset Other Mother Coronary artery disease Mother Family Status - Relation Status Age at Mother Level of Service:86630 OR OFFICE/OUTPATIENT NEW MODERATE MDM 45 MINUTES Reason for Visit and Comments: Pre-op Exam [385014] - Needs hernia surgery with Dr. Sloan. He has no cardiac history. Says his mother had CABG in her 80's. Smokes 1 PPD. Chest Pain [050504] - Every once in awhile Shortness of Breath [900554] - Every once in awhile NormalSelect Medical Cleveland Clinic Rehabilitation Hospital, BeachwoodXR shoulder BI min 2Von 91-55-0438CA shoulder BI min 2VCLEVEL[facility] [place] [address] [place] [address] XRay Report Signed Patient: BetitoShweta Rod RENTERIA MR#: [id number] : 1960 Acct:[id number] Age/Sex: 61 / M ADM Date: 08/27/22 [facility]: [facility] Room: Type: [facility] Attending Dr: Nj Zamarripa MD Copies to: [...] JOINT. Impression dictated by: Hawk Yanez Jr., D.OTerrence08/27/2022 1:55 PM Dictation Location: RADIO-PC-15 Transcribed By: PWS 08/27/22 1355 Dictated By: Hawk Yanez Jr, DO 08/27/22 1350 Signed By: 08/27/22 [facility] HospitalCB AUTO DIFFon 06-07-2019 Basophils (Bld) [#/Vol]0.0 103/ulNormal0.0-0.1The [facility] InstituteComment on above:Performed By: #### CBC #### [facility] [address] [id number] [place] KarenBasophils/100 WBC (Bld)0.4 %Normal0.2-2.0[facility] Comment on above:Performed By: #### CBC #### [facility] [address] [address] [place] KarenEosinophils (Bld) [#/Vol]0.3 103/ulNormal0.0-0.7The [facility] InstituteComment on above:Performed By: #### CBC #### [facility] [address] [address] [place] KarenEosinophils/100 WBC (Bld)2.9 %Normal0.9-7.0[facility] Comment on above:Performed By: #### CBC #### [facility] [address] [id number] [place] KarenErythrocyte distribution width (RBC) [Ratio]13.3 %Leyilf14.0-15.0The [facility] InstituteComment on above:Performed By: #### CBC #### [facility] [address] [id number] [place] KarenHematocrit (Bld) [Volume fraction]44.5 %Xcback12.0-54.0The [facility] InstituteComment on above:Performed By: #### CBC #### [facility] [address] [place], [place] [id number] [place] KarenHemoglobin (Bld) [Mass/Vol]14.9 g/fSNlffbx67.0-18.0The [facility] InstituteComment on above:Performed By: #### CBC #### [facility] [address] [address] [place] KarenIG #0.03 10e3/ulNormal0.00-0.03The [facility] InstituteComment on above:Performed By: #### CBC #### [facility] [address] [place] [address] L[place]h KarenIG %0.3 %Normal0.0-0.5The [facility] InstituteComment on above: Performed By: #### CBC #### [facility] [address] [place] [address] [place]h KarenLymphocytes (Bld) [#/Vol]3.0 103/ulNormal1.2-3.8The [facility] InstituteComment on above:Performed By: #### CBC #### [facility] [address] [place] [address] [place] KarenLymphocytes/100 WBC (Bld)28.2 %Cxnqxu83.5-60.0[facility] Comment on above:Performed By: #### CBC #### [facility] [address] [place] [address] [place] KarenMANUAL DIFF REQNONormalAdena Fayette Medical CenterComment on above: Performed By: #### CBC #### [facility] [address] [place] [address] [place]h KarenMCH (RBC) [Entitic mass]30.7 bkFewjya38.9-34.0[facility] Comment on above:Performed By: #### CBC #### [facility] [address] [place] [address] L[place]h KarenMCHC (RBC) [Mass/Vol]33.5 g/sSNvsvxh77.9-35.2[facility] Comment on above:Performed By: #### CBC #### [facility] [address] [place] [address] [place] KarenMCV (RBC) [Entitic vol]91.8 sPPjeofx89.0-94.0[facility] Comment on above:Performed By: #### CBC #### [facility] [address] [place], [place] [id number] [place] KarenMonocytes (Bld) [#/Vol]0.7 103/ulNormal0.3-0.8[facility] Comment on above:Performed By: #### CBC #### [facility] [address] [place] [address] L[place]h KarenMonocytes/100 WBC (Bld)6.1 %Normal1.7-12.0[facility] Comment on above:Performed By: #### CBC #### [facility] [address] [place] [address] [place]h KarenNeutrophils (Bld) [#/Vol]6.7 103/ulCritically high1.4-6.5The [facility] InstituteComment on above:Performed By: #### CBC #### [facility] [address] [place] [address] L[place]h KarenNeutrophils/100 WBC (Bld)62.1 %Fnobcl96.0-75.0[facility] Comment on above:Performed By: #### CBC #### [facility] [address] [place] [address] [place] KarenPlatelet mean volume (Bld) [Entitic vol]9.1 fLCritically low9.5-13.5 [facility] CenterComment on above:Performed By: #### CBC #### [facility] [address] [place], [place] [id number] [place] KarenPlatelets (Bld) [#/Vol]289 103/edAehdzc824-521FvjAdena [facility] Medical Center Comment on above:Performed By: #### CBC #### [facility] [address] [place], [place] [address] [place]h KarenRBC (Bld) [#/Vol]4.85 106/ulNormal4.70-6.10[facility] Comment on above:Performed By: #### CBC #### [facility] [address] [place] [address] L[place]h KarenWBC (Bld) [#/Vol]10.7 103/ulNormal4.0-11.0[facility] Comment on above:Performed By: #### CBC #### [facility] [address] [place] [address] [place] KarenLIPASEon 39-06-1721Ijjuai [Catalytic activity/Vol]137.0 U/LNormal 23.0-300.0[facility] CenterComment on above:Performed By: #### JOE, CMP #### [facility] [address] [place] [address] [place] KarenPROF 14(COMP METB)on 24-69-1134Vpwtzmv [Mass/Vol]3.4 g/dLCritically low3.5-5.0[facility] CenterComment on above:Performed By: #### JOE, CMP #### [facility] [address] [place] [address] [place] KarenAlbumin/Globulin [Mass ratio]1.0 {ratio}NormalAdena [facility] Comment on above:Performed By: #### JOE, CMP #### [facility] [address] [place] [address] [place] KarenALP [Catalytic activity/Vol]44 U/UGiituh97-483OonAdena [facility] Medical Center Comment on above:Performed By: #### JOE, CMP #### [facility] [address] [place] [address] [place] KarenALT [Catalytic activity/Vol]42 U/RIrjfui72-22Nla [facility] Comment on above:Performed By: #### JOE, CMP #### [facility] [address] [place] [address] [place] KarenAnion gap [Moles/Vol]13.0 mmol/LNormalAdena Fayette Medical CenterComment on above:Performed By: #### JOE, CMP #### [facility] [address] [place] [address] [place] KarenAST [Catalytic activity/Vol]23 U/ASaztew90-71LenAdena [facility] Medical Center Comment on above:Performed By: #### JOE, CMP #### [facility] [address] [address] [place] KarenBilirubin Ql (U)0.3 mg/dLNormal0.2-1.3The [facility] InstituteComment on above:Performed By: #### JOE, CMP #### [facility] [address] [place] [address] [place] KarenCalcium [Mass/Vol]8.8 mg/dLNormal8.4-10.2[facility] Comment on above:Performed By: #### JOE, CMP #### [facility] [address] [place] [address] [place] KarenChloride [Moles/Vol]109 mmol/LCritically uzcm06-199Chs [facility] InstituteComment on above:Performed By: #### JOE, CMP #### [facility] [address] [place] [address] [place] KarenCO2 [Moles/Vol]25.8 mmol/XCflaxr78.0-30.0The [facility] Comment on above:Performed By: #### JOE, CMP #### [facility] [address] [place] [address] [place]h KarenCreatinine [Mass/Vol]0.87 mg/dLNormal0.66-1.25The [facility] Comment on above:Performed By: #### JOE, CMP #### [facility] [address] [place] [address] [place] KarenEGFR-AF AFGHAN>60Normal>=60The [facility] InstituteComment on above: Performed By: #### LIPCarey, CMP #### [facility] [address] [place] [address] [place] KarenEGFR-NON AF AFGHAN>60Normal>=60The [facility] InstituteComment on above:Performed By: #### LIPA, CMP #### [facility] [address] [place] [address] [place] KarenGlobulin (S) [Mass/Vol]3.5 g/dLNormalThe [facility] InstituteComment on above:Performed By: #### LIPA, CMP #### [facility] [address] [place] [address] Lokesh KarenGlucose [Mass/Vol]95 mg/xSXvyzct35-276Ugc [facility] InstituteComment on above:Performed By: #### JOE, CMP #### [facility] [address] [place] [address] [place] KarenPotassium [Moles/Vol]3.8 mmol/LNormal3.4-5.0The [facility] Comment on above:Performed By: #### JOE, CMP #### [facility] [address] [place] [address] L[place]h KarenProtein [Mass/Vol]6.9 g/dLNormal6.1-8.2The [facility] InstituteComment on above:Performed By: #### JOE, CMP #### [facility] [address] [place] [address] L[place]h KarenSodium [Moles/Vol]144 mmol/PUuqmmh765-046Pad [facility] Comment on above:Performed By: #### JOE, CMP #### [facility] [address] [place] [address] L[place]h KarenUrea nitrogen [Mass/Vol]13.0 mg/dLNormal9.0-20.0The [facility] InstituteComment on above:Performed By: #### JOE, CMP #### [facility] [address] [place] [address] Lokesh KarenUrea nitrogen/Creatinine [Mass ratio]14.9 mg/mgNormalThe [facility] InstituteComment on above:Performed By: #### JOE, CMP #### [facility] [address] [place] [address] L[place]h RaienCNPNon 15-60-2941WBLYSmnublawr (KENNY) -----SHWETA BRAXTON JR ([id number]) 1960 M IPADate Time Provider Department10/09/17 AURA STATON During your visit today, we recorded the following information about you:Randal Mensah [facility] 10/09/201711:11 AM SignedPt calling for xray results done on 09/11/17..Aura Staton MD 10/09/2017 11:31 AM SignedLumbar x-ray demonstrates- Mild degenerative change of the lumbar spine German Looney, MEENA 10/09/2017 11:44 AM SignedCall to the pt [...] atthe game today and did not want tospeak further. 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 Umbilical hernia without obstruction and withou*INVALID FOR* More...Letter Mariama Staton M.D[facility] [address] [place] [address]/[address] [address]Nrnlio: appointments: Fax: [facility] REFERRAL FORMNAME: Shweta Braxton JRINIC NO: [id number]: October 09, 2017DIAGNOSIS: Lumbar spondylosisPatient's Choice for Physical Therapy Site: Outside Facility:Surgical Procedure? NoSpecial Precautions: As toleratedPATIENT REFERRED BY: Aura Staton MDTreatment : THERAPEUTIC EXERCISE, Stretching Exercises, ROM, Strengthening,Stabilization: DLS, General conditioning and HEP (Physician Signature)Aura Staton M.D.[id number] NPIEncounter Number: [id number] Status:Closed by VARUN WEBSTER on 10/09/17NoFirelands Regional Medical Center CNCNPATEDon 55-98-7692WBSNHWFQZJdqsodqzy (GENBMI) --------SHWETA BRAXTON JR ([id number]) 1960 M IPADate Time Provider Department09/22/17 SUNNI SALMERON (RN) Rudi for Visit: Patient Education [91]Progress Notes:Sunni Salmeron RN, RN 09/22/2017 11:15 AM SignedAMBULATORY PATIENT EDUCATION NOTETOPIC: SURVIVAL SKILLS: umbilical herniaREADINESS TO LEARNCOGNITIVE ABILITY: Alert and orientedMOTIVATION TO LEARN: EagerInterestedFAMILY SUPPORT: High - Veryinvolved in pt careINSTRUCTION PROVIDED TO: Patient and family memberPATIENT LEARNS BEST BY: Individual InstructionWritten Instruction - Hand-outsVerbal InstructionFACTORS AFFECTING LEARNING: NonePHYSICAL LIMITATIONS AFFECTING LEARNING: NoneLEARNING RESPONSEDIAGNOSIS: Umbilical herniaMETHOD OF INSTRUCTION: Individual instructionPATIENT / FAMILY RESPONSE: Verbalizes understanding of: INFECTIONMANAGEMENT-Signs and symptoms of an infection and importance of contacting thephysicianPAIN MANAGEMENT-Effective strategies to manage pain in addition to painmedicationPOST-OPERATIVE INSTRUCTIONS-Correct actions to take to reduce postoperativecomplicationsPRE-OPERATIVE INSTRUCTIONS-Correct action to take to follow uey-gaflwhaxggjkoderzrspqZMOQNV-LJ PLAN: Patient instructed to call with any further issuesSUPPLEMENTAL MATERIAL: Your Surgical GuideREFERRAL (RECOMMENDATION): NoneElectronically Signed By: Sunni Salmeron RN In Department: GENERAL SURGERY During your visit today, we recorded the following information about you:Allergies As of Date: 09/22/2017(No Known Allergies)Date Reviewed: 2017Reviewed by: Eve Phelan MA - Fully AssessedEncounter Number: [id number] Status:Closed by SUNNI SALMERON on 09/22/17Normal [facility] HospitalPROGRESSon [id number] mass concHNO ID: [id number]: Sunni Reyes (Rn) Jules RNService: (none)Author Type: Registered NurseType: Progress NotesFiled: 09/22/2017 11:15 AMNote Text:AMBULATORY PATIENT EDUCATION NOTETOPIC: SURVIVAL SKILLS: umbilical herniaREADINESS TO LEARNCOGNITIVE ABILITY: Alert and orientedMOTIVATION TO LEARN: Eag erInterestedFAMILY SUPPORT: High - Very involved in pt careINSTRUCTION PROVIDED TO: Patient and family memberPATIENT LEARNS BEST BY: Individual InstructionWritten Instruction - Hand-outsVerbal InstructionFACTORS AFFECTING LEARNING: NonePHYSICAL LIMITATIONS AFFECTING LEARNING: NoneLEARNING RESPONSEDI AGNOSIS: Umbilical herniaMETHOD OF INSTRUCTION: Individual instructionPATIENT / FAMILY RESPONSE: Verbalizes understanding of: INFECTIONMANAGEMENT-Signs and symptoms of an infection and importance ofcontacting the physicianPAIN MANAGEMENT-Effective strategies to manage pain in addition to painmedicat ionPOST-OPERATIVE INSTRUCTIONS-Correct actions to take to reducepostoperative complicationsPRE-OPERATIVE INSTRUCTIONS-Correct action to take to follow oxc-cbrbzyxsnancqgrtloyvvYUOICQ-CS PLAN: Patientinstructed to call with any further issuesSUPPLEMENTAL MATERIAL: Your Surgical GuideREFERRAL (RECOMM ENDATION): NoneElectronically Signed By: Sunni Salmeron RN In Department: GENERALSURGERYNormalMercy Health – The Jewish HospitalCNOVon [id number] Visit (SPNMMN) --------SHWETA BRAXTON JR ([id number]) 1960 MDate Time Provider Department09/11/17 9:40 AM AURA STATON SPNMMN During your visit today, we recorded the following information about you: Pulse Respiration Blood pressure Weight 70/minute 16/minute 137/83 104.3 kg Height 1.892 [facility] Instituteel[facility] Stat[facility] MD 2017 11:17 [address] SignedSpine Care Path Radicular Leg Pain - Chronic (> 12 weeks) Initial ExamSUBJECTIVEHISTORY OF PRESENT ILLNESS:Shweta Braxton JR is a 57 year old male who presents with a chief complaint ofleg pain and is seen in consultation requested by Dr. Thomas Matthews for anopinion. My final juice mmendations will be communicated back to the requestingphysician by way of shared medical record orletter via US mail.Other Issues Addressed at the Visit Today: None.Precipitating Event: NoneLow back and bilateral LE pain-buttock, posterior thigh to the ankle to theplantar of the foot for the last2 years. +numbness of the feet and some inthe legs but the foot numbness is most bothersome. Bilateral LE swelling alsonotes around this time. Saw a vascular physician (records not available) andwas given compression stockings and suggested a work-up that per patient wasnot completed due to inability to afford.Now has insurance/coverage via [facility].Denies trauma.PAIN EVALUATION 2017 Pain Score: 10 Pain Location: Back Description: Aching;Radiating;Numbness;Other: See comment piercing Duration Amount of Time: 2 Duration Units: Years Frequency: Continuous Intervention: Medication;Cold;Relaxation;HeatPain Radiation: please see aboveAggravating Factors: sitting>standing>walking. Not limited in walking distance.Alleviating Factors: Lying supinePain Ratio: Pain in the back and leg(s) is equalPrior Therapy: tried OTC-tylenol, advil. Denies PT or injections.Litigation: NoWorkers' Compensation: NoPED RED FLAGS YELLOW AND BLUE FLAGSNo No-Significant Injury to SpineNo-Use of Steroids for Prolonged DurationNo-Loss of Bowel/Bladder Control, Genital/Anal NumbnessNo-Recent Use of Intravenous(IV) DrugsNo- Difficulty Keeping Balance when WalkingYES-Progressive Weakness in Arms/LegsNo-Historyof Any Type of CancerNo-Unable to Find Position of ComfortNo- Pain at Night that Disturbs SleepNo-Recent Elevated Temp with Unknown CauseNo- Diagnosed with OsteoporosisNo-Unintentional Weight Loss or Gain No-Neg Attitude; Back Pain is DisablingNo-Avoiding Activity (for Fear of Pain)YES-Depression or Anxiety DisordersNo-Social ProblemsNo-Substance Use DisorderNo-Job DissatisfactionNo-Financial Disincentives*PED (Patient Entered Data) osteoporosis flag will display for females 55 yearsor older and males 75 years or older.ACTIVE PROBLEM LISTObesity, Class I, Bmi 30-34.9Chronic Obstructive Pulmonary Disease (Hcc)Chronic Left-Sided Low Back Pain With SciaticaUmbilical Hernia Without Obstruction OrGangrenePreoperative ExaminationUmbilical Hernia Without Obstruction and Without GangrenePAST [...] ASSESSMENT: See HPI.GENERAL: Denies fever, chills malaise andweight loss.HEENT: No recent change in vision or hearing.CARDIOVASCULAR: Denies chest pain, historyof A-fib, valvular disease, orpacemaker/ICD.RESPIRATORY: Denies SOB, sputum production, and hemoptysis. but there is noteof COPD in chart that patient deniesGI: Denies GI ulcers, inflammatory disease, or liver disease.: Denies change in frequency or urgency, kidney disease, and burning withurinati on.MUSCULOSKELETAL: Negative for joint pain or swelling, back pain or muscle pain.SKIN: Denies rashor itching.PSYCHOLOGICAL: Denies uncontrolled depression or anxiety.NEURO: Denies CVA, seizures, headaches.ENDOCRINE: Denies diabetes, thyroid disease.HEMATOLOGY/LYMPHOLOGY: Denies cancer, bleeding or clotting disorders,anemia,and DVT's.ALLERGIC/IMMUNOLOGICAL: Denies risks for infection, or recent MRSA infections.OBJECTIVE:PHYSICAL EXAMBP 137/83 Pulse 70 Resp 16 Ht 189.2 cm (6' 2.5 ) Wt 104.3 kg (230lb) BMI 29.14 kg/m?General: Pleasant individual in NADMental Status: Oriented to person place and time. Displays appropriate mood andaffect.GAIT: Gait is normal.Gross Motor: Toe walking,heel walking are normal.Strength Testing: Bilateral upper and [...] is unremarkable except for slight lower lumbar paraspinaltenderness.Peripheral Vascular: 1-2+ pitting edema symmetricAppearance of Skin: [...] of chronic LE edema3. Call for x-ray results.Consider spine specific PT. Notes would like toconsider [...] 2017 : 10:45 AMReferring Provider: THOMAS MATTHEWS [[id number]]Allergies As of Date: 2017(No Known Allergies)Date Reviewed: 2017Reviewed by: Eve Phelan MA - Fully AssessedReason for Visit: New Patient [172]Primary Visit Diagnosis:Lumbosacral spondylosis without myelopathy [M47.817] Other Visit Diagnoses:Chronic left-sided low back pain with sciatica, sciatica laterality unspecified [M54.40, G89.29] Leg swelling [M79.89]Order(s):XR LUMBAR LIMITED 2V AP/LAT [2386482] Order #: [id number] FUTURE CONSULT TO VASCULAR MEDICINE [419881] Order #: [id number]: 1Problem List As Of Date 2017 Noted Resolved Obesity, Class I, BMI 30-34.9 [E66.9] INVALIDFOR* Chronic obstructive pulmonary disease (HCC) [J4*INVALID FOR* Chronic left-sided low back pain with sciatica *INVALID FOR* Umbilical hernia without obstruction or gangren*INVALID FOR* Preoperative examination [Z01.818] INVALID FOR* More... Umbilical hernia without obstruction and withou*INVALIDFOR* More...Disposition: Return in about 3 months (around 12/12/2017).Follow-up and Disposition History RecordedEncounter Number: [id number] Status:Closed by AURA STATON MD on 09/11/17 [facility] HospitalPROGRESSon [id number] mass concHNO ID: [id number]: Juliana Burgos RtService: (none)Author Type: (none)Type: Progress NotesFiled: 2017 11:28 AMNote Text: Radiology Service Progress NotePATIENT NAME: Shweta Braxton JRMRN: [id number] OF SERVICE: September 11, 2017TIME: 11:28 AMPATIENT IDENTITY VERIFICATION COMPLETED USING TWO (2) METHODS: Patientconfirmed name verbally and Date of .PATIENT GENDER DATA: MalePATIENT RELEVANT IMPLANT DATA REVIEWED: Not ApplicableRADIOLOGY DEPARTMENT: General X-ray: Exam(s) Completed: Spine X-Ray(s):Lumbar AP / LAT / L5- [id number] IV DATA: Not applicableSIGNED BY: Juliana Burgos RtJuly 2017 11:28 AMNormalMercy Health – The Jewish HospitalProtein mass concHNO ID: [id number]: Aura Hartervice: (none)Author Type: PhysicianType: Progress NotesFiled: 2017 11:17 AMNote Text:Spine Care Path Radicular Leg Pain - Chronic (> 12 weeks) Initial ExamSUBJECTIVEHISTORY OF PRESENT ILLNESS:Shweta Braxton JR is a 57 year old male who presents witha chief complaintof leg pain and is seen in consultation requested by Dr. Thomas Matthews ruben opinion. My final recommendations will be communicated back to therequesting physician by way of shared medical record or letter via USmail.Other Issues Addressed at the Visit Today: None.Precipitating Event: NoneLow back and bilateral LE pain-buttock, posterior thigh to the ankle tothe plantar of the footfor the last 2 years. +numbness of the feet andsome in the legs but the foot numbness is most bothersome. Bilateral LEswelling also notes around this time. Saw a vascular physician (recordsnot available) and was given compression stockings and suggested a work-upthat per patient was not completed due to inability to afford.Now has insurance/coverage via [facility].Denies trauma.PAIN EVALUATION 2017Pain Score: 10 Pain Location: Back Description: Aching;Radiating;Numbness;Other: See comment piercing Duration Amount of Time: 2 Duration Units: Years Frequency: Continuous Intervention: Medication;Co ld;Relaxation;HeatPain Radiation: please see aboveAggravating Factors: sitting>standing>walking. Not limited in walkingdistance.Alleviating Factors: Lying supinePain Ratio: Pain in the back andleg(s) is equalPrior Therapy: tried OTC-tylenol, advil. Denies PT or injections.Litigation: NoWorkers' Compensation: NoPED RED FLAGS YELLOW AND BLUE FLAGSNo No-Significant Injury to SpineNo-Use of Steroids for Prolonged DurationNo-Loss of Bowel/Bladder Control, Genital/Anal NumbnessNo-Recent Use ofIntravenous (IV) DrugsNo-Difficulty Keeping Balance when WalkingYES-Progressive Weakness in Arms/LegsNo-History of Any Type of CancerNo- Unable to Find Position of ComfortNo-Pain at Night that Disturbs SleepNo-Recent Elevated Temp with Unknown CauseNo-Diagnosed with OsteoporosisNo-Unintentional Weight Loss or Gain No-Neg Attitude; Back Pain is DisablingNo-Avoiding Activity (for Fear of Pain)YES-Depression or Anxiety DisordersNo-Social ProblemsNo- Substance Use DisorderNo-Job DissatisfactionNo-Financial Disincentives*PED (Patient Entered Data) osteoporosis flag will display for females 55years or older and males 75 years or older.ACTIVE PROBLEM LISTObesity, Class I, Bmi 30- 34.9Chronic Obstructive Pulmonary Disease (Hcc)Chronic Left-Sided Low Back Pain With SciaticaUmbilical Hernia Without Obstruction Or GangrenePreoperative ExaminationUmbilical Hernia Without Obstruction and Without GangrenePAST MEDICAL HISTORYDiagnosis Date- Back pain- COPD (chronic obstructive pulmonary disease) (HCC)-Current smoker- Hip pain- Umbilical herniaPAST SURGICAL HISTORYProcedure [...] Comment: lots 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 but there isnote of COPD in chart that patient deniesGI: Denies GI ulcers, inflammat ory disease, or liver disease.: Denies change in frequency or urgency, kidney disease, and burningwith urination.MUSCULOSKELETAL: Negative for joint pain or swelling, back pain or musclepain.SKIN: Denies rash or itching.PSYCHOLOGICAL: Denies uncontrolled depression or anxiety.NEURO: Denies CVA, seizures, headaches.ENDOCRINE: Denies diabetes, thyroid disease.HEMATOLOGY/LYMPHOLOGY: Denies cancer,bleeding or clotting disorders,anemia,and DVT's.ALLERGIC/IMMUNOLOGICAL: Denies risks for infection,or recent MRSAinfections.OBJECTIVE:PHYSICAL EXAMBP 137/83 Pulse 70 Resp 16 Ht 189.2 cm (6' 2.5 ) Wt 104.3 kg(230 lb) BMI 29.14 kg/m?General: Pleasant individual in NADMental Status: Oriented to person place and time. Displays appropriatemood and affect.GAIT: Gait is normal.Gross Motor: Toe walking, heel walking are normal.Strength Testing: Bilateral upper and lower extremity strength isnormaland symmetric. No atrophy or tone abnormalities are noted.Sensation: No loss of sensation is noted.Neuro: Bilateral upper and lower extremity coordination and muscle stretchreflexes are physiologic and symmetric. Plantar response are downgoing.Spine Range of Motion: Normal range of motion with some pain reproductionPeripheral Joint ROM: Peripheral joint ROM appears full and pain freewithoutobvious instability or laxity in all four extremities.Provocative Maneuvers: hip, sacroiliac provocative maneuvers arenegative.Straight Leg Raising: Straight leg raising in the sitting and supinepositions is negative to radicular pain.Palpation: Inspection and palpatory examination of the spine upper/lowerextremities is unremarkable except for slight lower lumbar paraspinaltenderness.Peripheral Vascular: 1-2+ pitting edema symmetricAppearance of Skin: Skin inspection of the trunk, bilateral upper andlower extremities is unremarkable except for some color changes of thefeetData Review:[facility] records reviewedN/AASSESSMENT:#1. Chronic low back and LE pain. Suspect component of lumbar radicularpain contributing, S1. Suspect spondylosis w/o myelopathyPLAN: Management options were reviewed.1. Lumbar x- ray2. Vascular medicine consult for additional evaluation of chronic LEedema3. Call for x-ray results. Consider spine specific PT. Notes would liketo consider after upcoming surgery 10/10 which is reasonable.The above plan and management options were discussed at length withpatient. Patient isin agreement with the above and verbalizedunderstanding.Patient instructed to call/seek urgent medical care with worsening ofsymptoms or change of neurological status. Red flags reviewed.Aura Staton MDImaging Ordered:plain films-see aboveSIGNATURE: Aura Staton MD PATIENT NAME: Shweta Braxton JRDATE: 2017 : 10:45 AMNormalCleSelect Medical Specialty Hospital - ColumbusXR LUMBAR 2V AP/LATon [id number] LUMBAR 2V AP/LAT* * *Final Report* * *DATE OF EXAM: [...] facet degenerative change lower lumbar spine. Vascular calcifications.IMPRESSION:Mild degenerative change of the lumbar spine, as described.Or[employer] Fusion Middleware Developer: JA Transcribe Date/Time: 2017 12:24PDictated by : Sami CLAYTON examination was interpreted and the report reviewed and electronically signed by: ENIO MIRZA MD on 2017 1:45PM [id number] Clinic ClevelandPROESSon [id number] mass concHNO ID: [id number]: Sunni Reyes (Rn) Jules, RNService: (none)Author Type: Registered NurseType: Progress NotesFiled: 08/29/2017 11:39 AMNote Text:.Spoke to patient re: upcoming surgery- reviewed pre op directions as wellas post op-patient verbalized an understanding to all instructions.Stop smoking 3 weeks before surgeryStop NSAIDS: ASA, advil, motrin, Aleve, Rx NSAIDS, combination medscontaining these.Sunni Salmeron RNNormal [facility] HospitalPROEASTERN NEW MEXICO MEDICAL CENTERon [id number] mass concHNO ID: [id number]: Ramon LarsenRtDavid Hugginsvice: RadiologyAuthor Type: TechnicianType: Progress NotesFiled: 07/22/2017 2:58 PMNote Text: Radiology Service Progress NotePATIENT NAME: Domenic [facility]OSPITALN: [id number] OF SERVICE: July 22, 2017TIME: 2:57 PMPATIENT IDENTITY VERIFICATION COMPLETED USING TWO (2) METHODS: Patientconfirmed name verbally and Date of .PATIENT GENDER DATA: MalePATIENT RELEVANT IMPLANT DATA REVIEWED: YesRADIOLOGY DEPARTMENT: General X- ray: Exam(s) Completed: Chest X-RayPERIPHERAL IV DATA: Not applicableSIGNED BY: RT BrunoMay 2017 2:57 PMNormalMercy Health – The Jewish HospitalXR CHEST 2V FRONTAL/LATon [id number] CHEST 2V FRONTAL/LAT* * *Final Report* * *DATE OF EXAM: Jul 22 2017 2:56PM JIX [id number] - XR CHEST 2V FRONTAL/LAT / REASON: multiple diagnoses * * * * Physician Interpretation * * * * EXAMINATION: CHEST RADIOGRAPH (2 VIEW FRONTAL and LATERAL)Clinical History: Encounter for other preprocedural examination Umbilical hernia without obstruction or gangreneMQ: XC2_5Comparison: NoneRESULT:Lines,tubes, and devices: None.Lungs and pleura: The lungs are clear of focal consolidation or mass. No substantial pleural effusions or pneumothorax are noted.Cardiomediastinal silhouette: Cardiomediastinal silhouette is unremarkable.Other: Mild degenerative changes are noted in the thoracic spine.IMPRESSION:No acute radiographic abnormality.Or[employer] Fusion Middleware Developer: PSCB Transcribe Date/Time: Jul 22 2017 4:11PDictated by : TESHA MIKE MDThis examination was interpreted and the report reviewed and electronically signed by: TESHA MIKE MD on Jul 22 2017 4:12PM [id number] Clinic ClevelandCNOVon [id number] Visit (GENBMI) --------SHWETA BRAXTON JR ([id number]) 1960 MDate Time Provider Department07/21/17 2:00 PM THOMAS MATTHEWS During your visit today, we recorded the following information about you: Pulse Blood pressureWeight Height 74/minute 140/78 105.2 kg 1.858 Russell Bhatia MD 07/21/2017 3:15 PM Signed [facility]STITUTEMANG[facility] MANGUMRAL SURGERY H AND PPATIENT NAME: Shweta Betito RENTERIAMRN: [id number] SERVICE: general surgeryPRGRANDVIEW MEDICAL [facility] CARE PHYSICIAN: Puneet Epperson DOASSESSMENT/PLAN: 56 year old male presents with abdominal pain and small,reducible umbilical hernia. Hernia is symptomatic, but reducible. Pthas othermedical problems which have not been addressed and no insurance, but is coveredby [facility] through october. Pt is also pack a day smoker. Smoking, COPD and otherissues will need to take precedence before surgery is scheduledPt has history of alcohol use and could have cirrhosis based on the hisotry,almost certainly has COPD undiagnosed and not managed. His abdominal pain issignificant, so thehernia should not be ignored.EKG, echo, CXR, PFTsCBC/CMPFollow [...] says he drank a bottle of crown ScaleIO thelast two days to self medicate the hurt back and leg. He has back pain withsciatica to his left leg. 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.PAST MEDICAL HISTORY:PAST MEDICAL HISTORYDiagnosis Date- Back pain- COPD (chronic obstructive pulmonary disease) (HCC)- Current smoker- Hip pain- Umbilical herniaPAST SURGICAL HISTORY:PAST SURGICAL HISTORYProcedure Laterality Date- HEMORRHOID SURGERY HXFAMILY HISTORY: No family history on file.SOCIALHISTORY:Social HistorySubstance Use Topics- Smoking status: Current Some Day Smoker Packs/day: 1.00Years: 40.00- Smokeless tobacco: Current User Comment: used to smoke more- Alcohol use 20.0 oz/week20 Shots of liquor per week Comment: lots [...] ALKPHOS, ALT, AST, TBILI, LIPASE in the [id number] hours.Invalid input(s): AMYLASEIMAGING: *will obtain Angi Bhatia MDW. D. Partlow Developmental Center SurgeryCUMBERLAND [facility]- [id number]/2:12 Suze Matthews MD 07/21/2017 4:25 PM SignedPATIENT NAME: Shweta Braxton [facility]ITALN: [id number]?HOSPITAL SERVICE: general surgeryLEONARD J. [facility]IAN: Puneet Epperson, DO??ASSESSMENT/PLAN: 56 year old male presents with abdominal pain and smallumbilical hernia. Hernia is symptomatic, but partially reducible. Pt has othermedical problems which have not been addressed and no insurance,but is coveredby [facility] through October. Pt is also pack a day smoker. Smoking, COPD and otherissues will need to take precedence before surgery is scheduled?Pt has history of alcohol use and could havecirrhosis based on the history,almost certainly has COPD undiagnosed and not managed. His abdominalpain issignificant, so the hernia should not be ignored.?EKG, echo, CXR, PFTsCBC/CMPFollow up afterexams and labs completed??HPI: 56 year old male with history of back and leg pain, current smoker,little medical care who presents with umbilical pain and hernia.?Pt says he had leg pain treated withoral steroids. He blew up like a balloon and then the hernia appeared within a few months. He alsodescribes his wholeabdomen dropping a few months before, [...] is a pack per day smoker. He sayshe drank a bottle of crown royal over thelast two days to self medicate the hurt back and leg. He has back pain withsciatica to his left leg. 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 ? Packs/day: 1.00? ? Years: 40.00- Smokeless tobacco: Current User? ? ? Comment: used to smoke more- Alcohol use 20.0 oz/week? ? 20 Shots of liquor per week? ? ? Comment: lots lately to deal with leg pain??MEDICATIONS:Prior to Admission Medications:CURRENT MEDICATIONSNo prescriptions on file.???No current hospital medications on file.?ALLERGIES:ALLERGIESALLERGIESNo Known Allergies?COMPLETEREVIEW OF SYSTEMS:GENERAL: No weight loss, malaise or [...] hernia above the umbilicus??Neli Bhatia MDGeneral SurgeryY- [id number]?07/21/20172:12 PMSTAFF NOTEAgree with assessment and planChronically incarcerated umbilical hernia, symptomaticChronic smoker, dyspnea, wheezingNo recent medical visitsWe need to assess his cardiac and lung functions before hernia surgery.Needs some blood works todayRefer to spine center for chronic severe back painRTC after the tests and optimizations to schedule the surgery.Needsto be done before OctoberHe needs to stop smoking before surgery.Lorelei Napoles Provider: PUNEET EPPERSON (HISTORICAL) [[id number]]Allergies As of Date: 07/21/2017(No Known Allergies)Date Reviewed: 07/21/2017Reviewed by: Thomas Matthews - Fully AssessedReason for Visit: New Patient [172]Primary Visit Diagnosis:Chronic obstructive pulmonary disease, unspecified COPD type (HCC) [J44.9] OtherVisit Diagnoses:Obesity, Class I, BMI 30-34.9 [E66.9] Chronic left-sided low back pain with sciatica, sciatica laterality unspecified [M54.40, G89.29] Umbilical hernia without obstruction or gangrene [K42.9]Order(s):ECG COMPLETE W INTERPRETATION [ECG01] Order #: [id number] FUTURE XR CHEST 1V FRONTAL PORT [5935686] Order #: [id number] FUTURE LUNG VOLUMES [2846164] Order #: [id number] FUTURE CBC + DIFF [SQCBCDIF] Order #: [id number] FUTURE HGB A1C [CSLZB1B] Order #: [id number] FUTURE ECHO [260614] Order #: [id number]: 1 FUTURE COMP METABOLIC PANEL [SQCMP] Order #: [id number] FUTURE CONSULT TO SPINE CENTER [19990602] Order #: [id number]: 1Problem List As Of Date 07/21/2017 Noted Resolved Obesity, Class I, BMI 30-34.9 [E66.9] INVALID FOR* Chronic obstructive pulmonary disease (HCC) [J4*INVALID FOR* Chronic left- sided low back pain with sciatica *INVALID FOR* Umbilical hernia without obst ruction or gangren*INVALID FOR* Status:Closed by THOMAS MATTHEWS MD on 07/21/17NoFirelands Regional Medical Center HISTORY PHYSICALon [id number] PHYSICALHNO ID: [id number]: Neli (Res) ConnorsService: (none)Author Type: ResidentType: HANDPFiled: 07/21/2017 3:15 PMNote Text: [facility]EASE INSTITUTEGENERAL SURGERY H AND PPATIENT NAME: Shweta Braxton [facility] HOSPITALN: [id number] SERVICE: general surgeryUINTAH BASIN [facility] PHYSICIAN: Puneet Epperson, DOASSESSMENT/PLAN: 56 year old male presents with abdominal pain and small,reducible umbilical hernia. Hernia is symptomatic, but reducible. Pt hasother medical problems which have not been addressed and no insurance, butis covered by [facility] [facility]. Pt is also pack [...] and hernia.Pt says he had leg pain treatedwith oral steroids. He blew up like aballoon and then the hernia appeared within a few months. Healsodescribes his whole abdomen dropping a few months [...] self medicate the hurt back and leg. Hehas back painwith sciatica to his left leg. 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.PAST MEDICAL HISTORY:PAST MEDICAL HISTORYDiagnosis Date- Back pain- COPD (chronic obstructive pulmonary disease) (HCC)- Current smoker- Hip pain- Umbilical herniaPASTSURGICAL HISTORY:PAST SURGICAL HISTORYProcedure Laterality Date- HEMORRHOID SURGERY [...] fat filledLABS:CBC:No results for input(s): WBC, HB, HCT,PLT in the last 168 hours.COAG: No results for input(s): APTT, INR in the last 168 hours.BMP: No res ults for input(s): GLUC, NA, K, CHLOR, CO2, ANION, BUN, CREATin the last 168 hours.CHEM: No resultsfor input(s): ALB, TPROT, CA, MG in the last 168 hours.HEPATIC: No results for input(s): ALKPHOS, ALT, AST, TBILI, LIPASE in thelast 168 hours.Invalid input(s): AMYLASEIMAGING: *will obtain Angi Bhatia MDGeneral SurgeryY- [id number]/2:12 PMNormalMercy Health – The Jewish HospitalPROGRESSon 63-87-1571Dpmcbwr mass concHNO ID: [id number]: Thomas Duarte: (none)Author Type: PhysicianType: Progress NotesFiled: 07/21/2017 4:25 PMNote Text:PATIENT NAME: Shweta Braxton ?HOSPITAL SERVICE: general surgeryPRGRAND[facility]IAN: Puneet Epperson, DO??ASSESSMENT/PLAN: 56 year old male presents with abdominal pain and smallumbilical hernia. Hernia is symptomatic, but partially reducible. Pt hasothermedical problems which have not been addressed and no insurance, butis covered by [facility] through October. Pt is also pack [...] pain, current smoker,little medical care who presents withumbilical pain and hernia.?Pt says he had leg [...] He has back painwith sciatica to his leftleg. 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 ? Packs/day: 1.00? ? Years: 40.00- Smokeless tobacco: Current User? ? ? Comment: used to smoke more- Alcohol use 20.0 oz/week? ? 20 Shots of liquor per week? ? ? Comment: lots lately to deal with leg pain??MEDICATIONS:Prior to Adm ission Medications:CURRENT MEDICATIONSNo prescriptions on file.???No current hospital medications on file.?ALLERGIES:ALLERGIESALLERGIESNo Known Allergies?COMPLETE REVIEW OF SYSTEMS:GENERAL: No weightloss, malaise or feversRESPIRATORY: Negative for cough, wheezing or shortness of breath.CARDIOVASCULAR: Negative for chest pain, leg swelling or palpitations.GI: Positive for abdominal discomfort, see HPIGU: No history of dysuria, frequency or incontinenceSKIN: Negative for lesions, rash, and itching.All other reviewed and negative other than HPI.?PHYSICAL EXAM:BP 140/78 (BP Site: Right Arm, BP Po sition: Sitting, BP Cuff Size: LargeAdult) Pulse 74 Ht 185.8 cm (6' 1.14 ) Wt 105.2 kg (232 lb) BMI 30.49 kg/m??GENERAL: Alert and oriented, no acute distress, cooperative.CARDIAC: regular rate and rhythmLUNGS: labored and audible breathing with wheezingABDOMEN: soft, moderately tender, umbilical hernia above the umbilicus??Neli Bhatia MDGeneral SurgeryY- [id number]?07/21/20172:12 PMSTAFFNOTEAgree with assessment and planChronically incarcerated umbilical hernia, symptomaticChronic smoker, dyspnea, wheezingNo recent medical visitsWe need to assess his cardiac and lung functions before hernia surgery.Needs some blood works todayRefer to spine center for chronic severe back painRTC after the tests and optimizations to schedule the surgery.Needs to be done before AugustHe needs to stop smoking before surgery.Ali Aminian, MDNomakedaalCDayton Children's Hospital Vital Signs Date TimeVital SignValuePerforming KpdqqulnuJkbviwnr20-48-8466 14:56-0500 Diastolic blood wngszxir85 mm[Hg]Ney NILL [phone]-XkrviC[facility] Clinic [facility] [place] 03-31-2024 14:56-0500Mean blood yghlbqbp451 mm[Hg]Ney NILL [phone]-JhlxrC[facility] Clinic [facility] [place] 03-31-2024 14:56-0500Systolic blood ygkxbthw951 mm[Hg]Ney NILL [phone]-MugobCleveland Clinic [facility] [place] 03-31-2024 14:21-0500Blood Pressure LocationMichael NILL [phone]-WmucxK[facility] [place] 03-31-2024 14:21-0500Diastolic blood cekbtrbn669 mm[Hg]Ney NILL [phone]-ZzfiuC[facility] Clinic [facility] General [facility] [place] 03-31-2024 14:21-0500Heart rate72 /minMichael NILL [phone]-LhqqwK[facility] [place] 03-31-2024 14:21-0500Respiratory rate16 /minMichael NILL 130-4558Jwactl-YtnxlC[facility] [place] 03-31-2024 14:21-0500Systolic blood enobgzoc858 mm[Hg]Ney NILL [phone]-LflahKet[facility] [place] 01-21-2024 11:17-0500Body iisagx692 cmKylamin Andre DO Work Phone: [facility] HealthcareGqftkkoqkt82-77-6315 11:17-0500Body mass index (BMI) [Ratio]27.6 kg/m2Kylamin Andre DO Work Phone: StudyEggKindred HospitalGaxzhwrjzk24-28-5976 11:17-0500Body selsxx44.52 kgMatthieu Sloan DO Work Phone: [facility] HealthcareNputjcbzqg71-45-4341 11:17-0500Diastolic blood fiwkbcae37 mm[Hg]Matthieu Sloan DO Work Phone: [facility] HealthcareGfvvdgbyzg55-29-3945 11:17-0500Heart rate89 /min Matthieu Sloan DO Work Phone: [facility] HealthcareHrtnsxajbj96-00-7027 11:17-0500Respiratory rate16 /minMatthieu Sloan DO Work Phone: [facility] HealthcareLynkmsbrvf20-09-5748 11:17-2551QhW9% (BldA) [Mass fraction]99 %Matthieu Sloan DO Work Phone: [facility] HealthcareZjztsdjvkr35-68-3235 11:17-0500Systolic blood cdegqtuk758 mm[Hg]Matthieu Sloan DO Work Phone: [facility] HealthcareMewuweznvl45-06-7368 10:45-0400Body .96 cmThomas Olexa Other [facility] [employer] Other Encounters Encounter DateEncounter TypeCare ProviderFacilityStart: 08-09-2024 End: 11-17-6811wqxlwefgtnJWLZJGeorgetown Behavioral Hospitaltart: 08-09-2024 End: 99-90-2906Kantpgfhv for other preprocedural examinationSBarney Children's Medical Centertart: 04-21-2024 End: 71-23-1342inwufbhevqFXPBPGeorgetown Behavioral Hospitaltart: 03-31-2024 End: 72-28-9421ovrgkgjehdHqpvewa R NILLFacility:CELIA Turnertart: 03-31-2024 End: 40-31-0413Mryvpgl encounter procedureMichael R NILL [phone]-JvffnCleveland Clinic [facility] Hospital General Surgery [place] Start: 35-43-4086urjukfrnnrHruxnee NILLFacility: BellevueStart: 38-30-9369Txiphwxcv for other preprocedural examinationSAMAR [facility]tart: 02-09-2024 End: 47-16-7412tjaeiyonkzCMPPI [facility] Westtart: 01-21-2024 End: 17-06-1668Auuetd flowsheetMatthieu Sloan DO Work Phone: NOFA [facility] GENSStart: 01-21-2024 End: 66-15-8986Nvazgt flowsheetMatthieu Sloan DO Work Phone: NOKH [facility] GENSStart: 01-21-2024 End: 84-32-4539Cjglkg outpatient new 45 minutesKylamin Sloan DO Work Phone: noms [facility] GENSComment on above:Inguinal hernia of left side without obstruction or gangrene (Primary Dx); Chest pain, unspecified typeStart: 01-21-2024 End: 32-51-1758erumdlubqyNHAE DUCKETTNot AvailableStart: 08-27-2023 End: 46-76-4388xugszxqoglSSRDQDDJ A BROWNNot AvailableStart: 11-28-2022 End: 46-98-4311gcxaktcyysHwtkht Olexa Other [facility] [employer] Other Start: 03-22-9058Vqwkpy outpatient visit 25 minutes Nj OlexaFPShannen Panchal OrthopedicsStart: 45-99-2378Bvuzaa outpatient visit 25 minutesThjoaquina OlexaFPG [facility] OrthopedicsStart: 08-27-2022 End: 62-26-8168bcaftgdqmvUojrxi OlexaFacility:[facility] Start: 08-27-2022 End: 72-20-9355qgwcaarzqlNxmfrntw [facility] Work Phone: [facility] Work Phone: Start: 08-27-2022 End: 35-95-1800Umpvuiy encounter procedureServices Family [facility] Work Phone: [facility] Start: 08-21-2019 End: 35-89-8136Wiyoipy encounter procedureNONE LISTED REQUESTFacility:N8Tssqj: 06-07-2019 End: 69-71-7044Vlwoynw encounter procedureNONE LISTED REQUESTFacility:K8Pouzz: 06-01-2019 End: 24-38-5072Uqmupss encounter procedureNONE LISTED REQUESTFacility:D5Bcahz: 04-30-2019 End: 50-80-8484Selfhbh encounter procedureJEFFREY PAYFacility:S3Ciixf: 2017 End: 25-91-3721Daooeua encounterTAGRELZA [facility] HospitalStart: 2017 End: 20-72-1473Rxzpkph encounterTAGRELZA [facility] HospitalStart: 07-22-2017 End: 31-38-2873Jthlgfp encounterALI [address] HospitalStart: 07-22-2017 End: 86-47-4127Batjiyj encounterALI [address] HospitalStart: 43-85-3579Jlebdxb encounterALI [facility] Procedures DateProcedureProcedure DetailPerforming ClinicianStart: 82-67-7713Ewwau X-ray of bilateral shouldersServices [facility] Work Phone: None (qualifier value)Ney AUSTIN Plan of Treatment DateCare ActivityDetailAuthorStart: 01-21-2024 End: 13-87-8593Encsnbu encounter vdgaaplwr38/20/2024 11:15 AM EST Office Visit NOMEric [facility] [address] [place] [address] Matthieu Sloan DO [address] [place] [address] ArrivedNOMS XIONG GENSComment on above: ArrivedStart: 53-81-6160Yphnzaari vaccinationInfluenza Vaccine (#1)[facility] HealthcareStart: 91-91-0013Tqgxdrcvp for malignant neoplasm of colonNOMS Healthcare Payers DatePayer CategoryPayerPolicy [id number] Health InsuranceUNITED HEALTHCARE MEDICAID Member Subscriber Plan / Payer (Effective 2021- Present) Name: Shweta Braxton Josy Relation to Subscriber: Self Name: Shweta Braxton Josy Payer ID: Not on file Group ID: Not on file Type: Not on file Address: [address] [id number] Health [id number] 2.0.1.433403.3.57[id number] 2..1.564604.3.57[id number] 2..1.263242.3.57[id number] 2.0.1.779270.3.57[id number] 2.0.1.139998.3.57[id number] 2.0.1.292934.3.57[id number] 2.0.1.809001.3.57[id number] 2.0.1.420676.3.57[id number] 2.0.1.409760.3.579.2.531 Social History DateTypeDetailFacilityStart: 10-95-1099Ypcicar smoking status NHISSmoker (finding)[facility] CenterStart: 09-50-3831Jsl [facility]: 08-27-2023 End: 95-20-1426Jxo Assigned At BirthMiddletown Hospitaltart: 97-93-6107Apzddzp smoking status NHISSmokes tobacco dailyNOIA HealthcareStart: 15-47-3047Frhfnpi of tobacco useCigarette SmokerNOIA HealthcareStart: 08-27-2023 End: 07-27-1792Wsnjcrbgxf smoked current (pack per day) - Qjpmwfqc7URQX HealthcareStart: 76-39-1829Oxnlyyt use and exposureSmokeless tobacco non-user NOM[facility] HealthcareStart: 08-27-2023 End: 48-10-5735Nfbkljloz beverage intakeDeferHEBER VALLEY MEDICAL CENTER HealthcareStart: 31-76-1279Nbm assigned at birthNot on fileHEBER VALLEY MEDICAL CENTER HealthcareStart: 27-72-5094Pxoqdnl smoking statusHeavy tobacco smoker (finding)[facility] Surgery MinongTobacco smoking statusNeverC[facility] Clinic [facility] General Surgery MinongNEGATED: Highlighted rowStart: NINFHistory of tobacco usePassive smoker [facility] Functional Status PkteKhacyayrdhKcutjvLimbabrb94-69-0643Tbabtsalro StatusN/AFMetroHealth [facility] Center General Surgery [place] Clinical Notes 08-27-2022 to 08-09-2024 Note Date & CwvrBveyJbzlzrag25-16-9114 NoteB[facility]vue [facility] Note Reason for cardiology visit: Follow-up hypertension, dyspnea on exertion, cardiac clearance HPI: 08/09/2024 Patient is here today for follow-up visit to be cleared for surgery after getting blood pressure under control. He states that he has been doing well. His shortness of breath is better. He denies any chest pain. He denies orthopnea or paroxysmal nocturnal dyspnea or dizziness or palpitation or legs edema He has a lot off arthritic pain which has been going on for 2 years He continues to smoke about 1 pack/day 04/21/2024 The patient is here today for follow-up visit. He reports that he has been doing well. Denies any chest pain at rest or with exertion. He reports occasional dyspnea on exertion. Denies orthopnea or paroxysmal nocturnal dyspnea or dizziness or palpitations. Denies legs edema or discomfort on exertion He continues to smoke 1 pack/day 02/09/2024 Shweta Braxton Jr. is a 63 y.o. [...] the history Past Medical History He has a past medical history of Hyperlipidemia and Hypertension. Surgical History He has no past surgical history on file. Social History He reports that he has been smoking cigarettes. He has never used smokeless tobacco. He reports current alcohol use. He reports current drug use. Family History Family History Problem Relation Name Age of Onset Other (defibrillator) Mother Coronary artery disease Mother Allergies Patient has no known allergies. Medications Current Outpatient Medications: losartan (Cozaar) 50 mg tablet, Take 1 tablet (50 mg) by mouth in the morning., Disp: 30 tablet, Rfl: 11 rosuvastatin (Crestor) 20 mg tablet, Take 1 tablet (20 mg) by mouth in the morning., Disp: 30 tablet, Rfl: 11 Last Recorded Vitals Visit Vitals BP 139/85 (BP Location: Left arm, Patient Position: Sitting) Pulse 65 Ht 1.88 m (6' 2 ) Wt 93.4 kg (206 lb) SpO2 98% BMI 26.45 kg/m??? Smoking Status Every Day BSA 2.21 m??? Physical Examination: GENERAL: alert and oriented [...] PSYCH: appropriate mood, affect, and judgement. Labs: 08/07/2024 Sodium 142, potassium 4.2, BUN 11, creatinine 0.92, GFR above 60, glucose 87, calcium 8.7 AST 28, ALT 30, triglyceride 61, cholesterol 125, HDL 56, LDL 56.8 03/08/2024 White blood count 9.4, hemoglobin 14.8, hematocrit 45, platelets 277 Sodium 140, potassium 4.1, glucose 85, BUN 18, creatinine 1.2, GFR above 60, calcium 8.6 AST 22, ALT 31 Triglyceride 83, cholesterol 216, HDL 56, LDL 144 TSH 1.544 Last Images: EKG today 08/09/2024 showed sinus bradycardia, heart rate 57 bpm, otherwise normal EKG EKG 02/09/2024 showed normal sinus rhythm, normal EKG Echo 03/08/2024 at [facility] Treadmill nuclear stress test 03/08/2024 at [facility] Nuclear portion Assessment and Plan: Preop cardiac clearance for left inguinal hernia repair Patient echo and stress test were normal. The patient is cleared to proceed with surgery from cardiac point of view with necessary anesthesia. He is considered to be at low risk for perioperative cardiac events. Dyspnea on exertion Echo showed normal left ventricle systolic and diastolic function without valvular heart disease I think that he has significant underlying COPD/chronic bronchitis in addition to uncontrolled hypertension Chest pain He had stress test which was normal without evidence of ischemia No recurrence History of hypertension, on losart (more content not included)...[facility]02-19-2025 NoteBellevue Office Cardiology Clinic Note Reason for cardiology [...] continues to smoke 1 pack/day 02/09/2024 Shweta Braxton Jr. is a 63 y.o. [...] sinus rhythm, normal EKG Echo 03/08/2024 at [facility] Treadmill nuclear stress test 03/08/2024 at [facility] Nuclear portion Assessment and Plan: Preop cardiac clearance for left inguinal hernia repair Patient echo and stress test were normal. The patient is cleared to proceed with surgery from cardiac point of view with necessary anesthesia. He is considered to be at low risk for perioperative cardiac events. A letter in that regard was sent to his bakery clerk and actually he was supposed to have [...] and treat shortness of (more content not included)...[facility]02-19-2025 NoteReview of Systems Cardiovascular: Positive for leg swelling and palpitations. Pt wants bp controlled so he can have hernia sx.[facility]01-30-2025 NoteGeneral Surgery Office/Clinic Note Chief Complaint consultation for inguinal hernia HPI Staff 63 year old male presents on consultation from Dr. Sloan for left inguinal hernia. Reports notingbulge several years ago. He notes recent increase [...] ECHO and stress test; has f/u with Machine Spreader next week; left hernia present for several years, reducible, increasing in size, sore at times; no skin changes, no N/Vor bowel changes; no abd operations; no asa or NSAID use; smokes 1 ppd. Review of Systems PHQ Score Initial Depression Screen Score: 0 SCORE ROS - Provider Constitutional: no fever, no sweats, no weight loss. Eyes: no glasses, no blurred vision, no visual loss. ENMT: no dentures, no hoarseness, no swallowing difficulties, no hearing loss, no ear infection(s),no nose bleeds. Cardiovascular: normal blood pressure, no [...] with mesh insertion, informed consent obtained. Patient instructedto decrease, or ideally quit, tobacco use in [...] Abuse - Denies Substance (more content not included)...[facility] HospitalComment on above:Result Comment: Electronically Signed By: NORMAN RODRIGUEZ, Ney Lynn\Date and Time Signed: 04/01/24 16:07 [id number] Note [place] [facility] Note Reason for cardiology consult: Preop cardiac evaluation for left inguinal hernia repair Chief Complaint: Dyspnea on exertion, occasional chest pain HPI: Shweta Subramaniancarola Prince is a 63 y.o. male who used [...] 2-month or sooner if needed Alexandrea Barger MD,FACCUniversity of [facility]lor [facility]11-20-2024 History of Present illness Narrative* Matthieu Sloan, DO - 01/21/2024 11:15 AM EST General Surgery H&P Shweta Braxton 1960 Shweta Braxton is a 63 y.o. male presents with chief complaint of left inguinal Hernia. He has had it for a few years. He states that it does cause him pain and discomfort at times. He states that henormally pushes the hernia back in himself. He states that he has noticed it getting larger recently. Pt states that he has been getting a intermittent chest pain, last episode was this morning. He was encouraged to see a bakery clerk and referral given. He was also instructed that if the pain continues to happen he should go to the ER to have his heart evaluated. Denies any abdominal pain. Denies fevers, chills, or sweats. Denies nausea or vomiting. Discussed surgery and risks for procedure. Pedro Pablo michel would like to proceed with surgery. Had detailed discussion that he must see a PCP and bakery clerk and obtain surgical risk stratification prior to [...] will need to see a PCP and bakery clerk for his intermittent chest pain. Will schedule at patient's earliest convenience after having cardiac clearance/work up. Encouraged to stop smoking. Thank you, Travis Sloan DO documented in this encounterThree Rivers HealthcareLwdmdruldu75-60-5346 Evaluation note* Encounter Date Diagnosis Assessment Notes Treatment Notes Treatment Clinical Notes Nov, Traumatic tear of coyle praspinatus tendon of right shoulder, subsequent encounter (ICD-10 - S46.811D) Extensive discussion about current condition and treatment options available. This appears to be a chronic rotator cuff tear. We discussed the importance of maintaining shoulder motion and gentle cuff strengthening exericse. Discussed the use of anti-inflammatory medication. We again discussed surgical options including [...] is aware that he will be drug testedpreoperatively. A 2/1cc marcaine / kenalog cortisone injection was performed into the subacromial space under sterile technique. Patient tolerated the injection well with no adverse reaction. Clinical Notes: Patient counseled on the importance of quitting smoking in regard to patient's overall health as well as postoperative healing. Patient states they are not ready to quit at this time. Nov,rimary osteoarthritis of right shoulder (ICD-10 - M19.011) Nov,Rotator cuff arthropathy, right (ICD-10 - M12.811) Nov,Right shoulder pain (ICD-10 - M25.511) Nov,cute pain of left shoulder (ICD-10 - M25.512) [employer] Other 06-27-2023 Evaluation note* Encounter Date Diagnosis Assessment Notes Treatment Notes Treatment Clinical Notes Aug, Traumatic tear of coyle praspinatus tendon of right shoulder, subsequent encounter (ICD-10 [...] options. Patient would require reverse total shoulder arthroplasty.Patient states he is not ready to consider surgical treatment at this time and would like to get through the summer. In the meantime, a 2/1cc marcaine / kenalog cortisone injection was performed intothe subacromial space under sterile technique. Patient tolerated the injection well with no adversereaction. Patient counseled on the importance of quitting smoking in regard to patient's overall health as well as postoperative healing. Patient states they are not ready to quit at this time. Aug,rimary osteoarthritis of right shoulder (ICD-10 - M19.011) Aug,Rotator cuff arthropathy, right (ICD-10 - M12.811) Aug,Right shoulder pain (ICD-10 - M25.511) Aug,cute pain of left shoulder (ICD-10 - M25.512) [employer] Other Evaluation + Plan note No data available for this section [facility] [place] Evaluation noteNo assessment information available [facility] Work Phone: Evaluation note* Diagnosis Inguinal hernia of left side without obstruction or gangrene- Primary Chest pain, unspecified type documented in this encounter NOMS HealthcareHistory general Narrative - Reported* Type Description Date Medical History peripheral vascular disease Medical Historyhigh blood pressureMedical Historyhigh cholesterol [employer] Other Hospital Discharge instructions No data available for this section [facility] [place] Progress note No data available for this section [facility] Surgery [place] Summary Purpose Family History No Family History [...] section and content) DATE CREATED AUTHOR 10/14/2017 [facility] DATE CREATED AUTHOR AUTHOR'S ORGANIZ ATION 09/18/2019 [facility] DATE CREATED AUTHOR AUTHOR'S ORGANIZ ATION 09/02/2022 [facility] DATE CREATED AUTHOR AUTHOR'S ORGANIZ ATION 01/24/2024 [facility] DATE CREATED AUTHOR AUTHOR'S ORGANIZ ATION 04/02/2024 [facility] DATE CREATED AUTHOR AUTHOR'S ORGANIZ ATION 08/14/2024 [facility] Care Teams (unrecognized sec tion and content) Team Status: Active Member Role Status Dates Services Family Health Primary Care Provider Active Team Status: Inactive Member Role Status Dates Services Family [facility] Primary Care Provider Active Edilia Bowles ProviderActiveTeam MemberRelationshipSpecialtyStart DateEnd Date Unallocated, Leny Cantrell MD [address] [place] [address] PCP - GeneralFamily Medicine08/27/23Team MemberRelationshipSpecialtyStart DateEnd Date Unallocated, [place] [address] [place] [id number] PCP - GeneralFamily Medicine08/27/23 Goals (unrecognized section and content) Goals may be documented in a n alternate sectionNo InformationNo Information No data available for this section REASON FOR VISIT (unrecogniz ed section and content) ReasonCommentsHerniaPt presents with complaints of a left inguinal hernia that he [...] states he almost fell to the floor frompain. FOR RECORDS PERTAINING TO PATIENTS WHO ARE [...] BE BASED ON THE PRIMARY CLINICAL RECORDS. [facility] [employer] [facility]. provides no warranty or guarantee of the accuracy or completeness of information in this document.
--- OUTSIDE RECORDS SUMMARY | 2025-02-26 05:39 | XMS_ITS | Patient Health Record ---
Demographics Address [address] [place] [address] Mobile Preferred Language en Marital Status unmarried Anglican Affiliation Unknown Race White Ethnic Group Unknown Author Organization [facility] Address [address] [place] [address] Care Team Providers Care Gold Marker Name Role Phone Self, Referral Primary Care Provider Unavailabl e Allergies No Known Allergies Reason For Referral No Information Social History Tobacco Use: Social History Observation Description Date Details (start date - stop date) Current Smoker NA - NA AUDIT-C (Standard) Question Answer Notes Did you have a drink containing alcohol in the p ast year? No Eniytw7LpvfmhmvvjhxjgHnoobkclFyevigs Control (Standard) Question Answer Notes Tobacco use: Current smoker Plan Of Treatment No Information Insurance Providers Payer Name Payer Address Payer Phone Subscriber Number Group Number Insured Name Patient Relationship to Insured Coverage Start Date Coverage End Date Medicaid [employer] [place] [address] [place] [address] [id number] SHWETA BRAXTON Self - patient is the insured Medical (General) History Medical History History ICD Code Respiratory problems: Heart problems:High Blood PressureDepressionAnxiety
--- OUTSIDE RECORDS SUMMARY | 2025-02-26 05:39 | XMS_ITS | Clinical Summary ---
Author Organization [facility] Address [address] [place] [address] Care Team Providers Care Water Registrar Name Role Phone Unavailable Primary Care Provider Unavailabl e Allergies No known active allergies Medications MedicationSigDispense QuantityRefillsLast FilledStart DateEnd DateStatus rosuvastatin (Crestor) 20 mg tablet Indications:Pure hypercholesterolemiaTake 1 tablet (20 mg) by mouth in the morning. 30 tablet 11004/21/61881004/21/2025ctive losartan (Cozaar) 50 mg tablet Indications:Essential hypertensionTake 1 tablet (50 mg) by mouth once daily as directed. 90 tablet ctive Active Problems ProblemNoted DateDiagnosed DateChronic obstructive pulmonary ergvark1508/09/2024 Left elbow pain08/09/20241240Iadwnoxztxrns46/09/2025Other chronic pain08/09/2024Pain in right wbuuhwmf47/09/2025Primary /09/2025Restless leg syndrome 08/09/2024Tinnitus of right ear08/09/2024Pre-op dudpkjkrim81/09/2024OE (dyspnea on exertion)02/09/2024recordial pain02/09/2024Essential ayctvfvcyhsl34/09/2024 Qohwrocxuuwndg17/09/2024Tobacco abuse02/09/2024Unilateral inguinal hernia without obstruction or /09/2024 Encounters DateTypeDepartmentCare GuyfKsbnjojnndv94/24/2025Refill [facility] [address] [place] [address] Ruby Ramos MA Essential hypertensionfrom Last 3 Months Family History Medical HistoryRelationNameCommentsCoronary artery diseaseMotherdefibrillator MotherRelationNameStatusCommentsFatherAliveMotherDeceased Social History Tobacco UseTypesPacks/DayYears UsedDateSmoking Tobacco: Every DayCigarettes Smokeless Tobacco: Never Tobacco Cessation:Ready to Q uit: Not Asked; Counseling Given: Not Answered Alcohol UseStandard Drinks/WeekCommentsYes0 (1 standard drink = 0.6 oz pure alcohol)occaasionalSex and Gender InformationValueDate RecordedSex Assigned at BirthNot on fileLegal NhnFfik69/20/2024 12:04 PM ESTGender IdentityNot on file Sexual OrientationNot on file Last Filed Vital Signs Vital SignReadingTime TakenCommentsBlood Trauxajt416/8506 3:38 PM EDT Flchw3873 3:38 PM EDTTemperature--Respiratory Rate--Oxygen Dstuubsaxl36% 08/09/2024 3:38 PM EDTInhaled Oxygen Concentration--Xnlmrg13.4 kg (206 lb) 08/09/2024 3:38 PM JJBJijyir384 cm (6' 2 )08/09/2024 3:38 PM EDTBody Mass Index 26.45008/09/2024 3:38 PM EDT Plan of Treatment Health MaintenanceDue DateLast DoneCommentsCT Tjvxptuaiiwj79/11/1960Colonoscopy 1959Colorectal Cancer Cxvetlylh28/11/1960FIT-DNA1959FIT1959 FOBT1959Medicare Initial Physical (IPPE)1960 1454Uuasgsqytmagm35/11/1960 Depression Mfccvfihj63/11/1972Pneumococcal Vaccine: 50+ Years (1 of 2 - PCV) 09/10/1978Adult Wmeelul6209/10/1981Zoster Vaccines (1 of 2)09/10/2009Fall Risk Wlptavzec52/11/2025OVID-19 Vaccine ( - 2024- season)2024Influenza Vaccine (#1)2024HIB VaccinesAged OutNo longer eligible based on patient's age to complete this topicHPV VaccinesAged OutNo longer eligible based on patient's age to complete this topicIPV VaccinesAged OutNo longer eligible based on patient's age to complete this topicMeningococcal B VaccineAged OutNo longer eligible based on patient's age to complete this topicMeningococcal VaccineAged OutNo longer eligible based on patient's age to complete this topicRotavirus VaccinesAged OutNo longer eligible based on patient's age to complete this topic Insurance * Guarantor: Omari Cisse Jr.Account TypeRelation to PatientDate of PhoneBilling AddressPersonal/BgjzokMlpe42/11/1961 [address] [place] [address]
--- OUTSIDE RECORDS SUMMARY | 2025-02-26 05:39 | XMS_ITS | Patient Health Record ---
Demographics Address [address] [place] [address] Preferred Language en Marital Status unmarried Sabianist Affiliation Unknown Race White Ethnic Group Not or Lati no Author Organization [facility] Address [address] [place] [address] Support Name Relationship Address Phone NERISSA ARMSTRONG Emergency Contact Unknown SHWETA BRAXTON JR Guarantor Unknown [phone] Allergies No Known Allergies Reason For Referral No Information Medications Medication SIG (Take, Route, Frequency, Duration) Notes Start Date End Date Status Cyclobenzaprine HCl 5 MG Tablet 1 tablet at bedtime as needed Orally Once a day; Duration: 30 day(s) 01/15/2022ctiveMelatonin 3 MG Tablet1 tablet at bedtime as needed Orally Once a day; Duration: 90 day(s)ActiveIbuprofen 800 MG Tablet1 tablet with food or milk as needed Orally Three times a day; Duration: 30 daysActiveCombivent Respimat 20-100 MCG/ACT Aerosol Solution1 puff as needed Inhalation every 6 hrs; Duration: 30 days04/03/2022ctiveAtorvastatin Calcium 40 MG Tablet1 tablet Orally Once a day; Duration: 90Not-Taking/PRNLisinopril 20 MG Tablet1 tablet Orally Once a day; Duration: 90 daysNot-Taking/PRN Social History Tobacco Use: Social History Observation Description Date Details (start date - stop date) Current Smoker 10/01/1973 - NA Social History GeneralSocial InfoQuestionAnswerNotesTransition of Care:ER/UC/hospital since last office visit?NoSpecialist seen since last office visit?NoSubstance abuse/mental health issues of patient/familyPatient -DeniesAbility to understand healthcare/treatmentPatient:GoodTobacco Screen:Are you a:current smokerWhen did you start vxkzpek4610/01/1973? How often do you smoke cigarettes?every day? How many cigarettes a day do you smoke?11-20Social/Support Concerns:Patient:No Alcohol Screening:Did you have a drink containing alcohol in the past year?Yes? How often did you have a drink containing alcohol in the past year?Monthly or less (1 point)? How many drinks did you have on a typical day when you were drinking in the past year?3 or 4 (1 point)? How often did you have six or more drinks on one occasion in the past year?Less than monthly (1 point)Points3 InterpretationNegativeBehaviors affecting healthPoor/Risky Behaviors:Denies- Communication Barrier:Language Barrier?:NoSection Notes: current smoker, occasional a lcohol'; history cocaine abuse smoking 1/2 pack day, 35 yea rs, 2packs/day Problems Problem Type SNOMED Code ICD Code Onset Dates Problem Status W/U Status Risk Notes Problem Primary insomnia (9489010) Primary insomn ia (F51.01) ActiveconfirmedProblemChronic pain (89782639)Other chronic pain (G89.29)Active confirmedProblemPain of right shoulder region (finding) (7929873069)Pain in right shoulder (M25.511)ActiveconfirmedProblemOnychomycosis (091012485) Onychomycosis (B35.1)ActiveconfirmedProblemEssential hypertension (69101795) Essential hypertension (I10)ActiveconfirmedProblemRestless legs syndrome (11125401)Restless leg syndrome (G25.81)ActiveconfirmedProblemChronic pain (69519819)Other chronic pain (G89.29)ActiveconfirmedProblemCOPD - Chronic obstructive pulmonary disease (44902908)Chronic obstructive pulmonary disease, unspecified COPD type (J44.9)ActiveconfirmedProblemHyperlipidaemia (75704015) Hyperlipidemia, unspecified hyperlipidemia type (E78.5)ActiveconfirmedProblem Tinnitus of right ear (4144539157711)Tinnitus of right ear (H93.11)Active confirmedProblemArthralgia of the upper arm (212479039)Left elbow pain (M25.522) ActiveconfirmedProblemEdema of left lower extremity (251051629)Edema of left lower extremity (R60.0)Problem resolvedconfirmedProblemLate effect of dislocation (5242393)Dislocation of left acromioclavicular joint, sequela (S43.102S)Problem resolvedconfirmed Plan Of Treatment No Information Insurance Providers Payer Name Payer Address Payer Phone Subscriber Number Group Number Insured Name Patient Relationship to Insured Coverage Start Date Coverage End Date [employer] [place] Medicaid [address] [place] [address] [id number] SHWETA LYNNE JR [place] - patient is the insured 3 Wrap [facility] [address] [place] [id number] JR, RICHARDSelfang - patient is the [id number] 2022zDENTAL DQ [facility] [place]-termed [address] [place] [phone] JR, RICHARDSelfang - patient is the [id number] 1960zDental Medicaid ABD after [facility] [address] [place] [id number] BRAXTON JRfang - patient is the [id number] 2020 Medical (General) History Medical History History ICD Code Hx of cocaine abuse Edema of left lower extremity (resolved 08/29/2021)undefinedDislocation of left acromioclavicular joint, sequela (resolved 08/29/2021)Surgical History Surgery Date(Month/Year) Hemrroidectomy
[2025-02-26] MEDS: LABETALOL HCL 100 MG/20 ML MDV 40 MG IVP (06:57)
--- NOTE | 2025-02-26 07:33 | CT_ITS ---
[facility] [place] [id number] Patient Name: SHWETA BRAXTON MRN: [id number] date: 1960 Sex: M Assigned Patient Location: ER Current Patient Location: ER Accession/Order Number: [id number] Exam Date: 02/26/2025 08:12 Report Date: 02/26/2025 09:20 At the request of: BENITO DAVIDSON DO Procedure: CT head/brain wo con Unenhanced head CT TECHNIQUE: Contiguous axial imaging of the head. The CT exam was performed using one or more the following dose reduction techniques: Automated exposure control, adjustment of the MA and/or Kv according to patient size, or use of the iterative reconstruction technique. COMPARISON: None HISTORY: Headache for 2 days VENTRICLES: Within normal limits ATROPHY: Mild atrophy BRAIN PARENCHYMA: Decreased density of the white matter is most consistent with chronic small vessel disease. HEMORRHAGE: None HERNIATION: No mass effect or herniation INFARCTION: No recent vascular distribution infarction is seen. EXTRA-AXIAL FLUID COLLECTIONS None MIDBRAIN: Unremarkable DOROTHY: Unremarkable MEDULLA: Unremarkable SINUSES: Unremarkable ORBITS: Grossly unremarkable MASTOIDS: Unremarkable BONY STRUCTURES Intact ADDITIONAL FINDINGS: CT/CT head/brain wo con IMPRESSION: No acute findings. Impression dictated by: Binu Lino M.D. 02/26/2025 9:20 AM Dictation Location: [place] [address] Electronically authenticated by: [id number] Y Date: 02/26/2025 09:20
[2025-02-26] MEDS: MAGNESIUM SULFATE IN WATER 2 GM/50 ML PREMIX IV (07:56)
[2025-02-26] MEDS: DIPHENHYDRAMINE HCL 50 MG/ML VIAL IVP (07:56)
[2025-02-26] MEDS: PROCHLORPERAZINE 10 MG/2 ML VIAL IV (07:56)
[2025-02-26] MEDS: 0.9 % SODIUM CHLORIDE 1,000 ML 1000 ML IV (07:56)
[2025-02-26] MEDS: DEXAMETHASONE SOD PHOS 10 MG/ML VIAL IV (07:56)
== END 2025-02-26 09:35 | disposition home or self-care (01) ==
PROVIDERS: Emergency Provider Emergency Medicine
DX: R51.9 Headache, unspecified (principal); I10 Essential (primary) hypertension; Z86.69 Personal history of other diseases of the nervous system and sense organs
CPT/HCPCS: 36415; 70450; 80048; 87804; 87811; 93005; 96365; 96375; 96376; 99285; J0780; J1100; J1200; J1290; J1920; J3475